=== PATIENT | male | born 1935 | race Caucasian/White ===

== ENCOUNTER → 2021-03-18 14:00 | Outpatient (CLI) | payer MEDICARE, SELFPAY ==
[2021-03-18 14:41] LABS: COVID19 -Nasal RAPID Negative (Negative)
== END ==
PROVIDERS: Visit Provider Physician Assistant
DX: Z01.812 Encounter for preprocedural laboratory examination (principal); Z20.822 Contact with and (suspected) exposure to COVID-19
CPT/HCPCS: 87635; C9803

== ENCOUNTER → 2021-03-20 07:46 | Outpatient (CLI) | payer MEDICARE, SELFPAY ==
--- NOTE | 2021-03-20 | DI.NM.S_ITS ---
PROCEDURE: NM JEANA PERF SPECT R&S PHARM Rest and pharmacological stress myocardial perfusion SPECT with gated imaging and ejection fraction RADIOPHARMACEUTICAL: 9.8 mCi Tc-99m tetrafosmin IV at rest and 26.3 mCi Tc-99m tetrafosmin IV at peak effect of pharmacological stress. [id number] was performed. INDICATIONS: Unspecified atrial fibrillation TECHNIQUE: Radiopharmaceutical was injected at peak stress test, and also at rest. SPECT images were obtained. SPECT myocardial perfusion images were displayed in short axis, horizontal long axis, and vertical long axis views. Gated images were reviewed using [employer] software. COMPARISON: None. CARDIAC STRESS: A pharmacologic stress test was performed under the supervision of an attending staff, using an infusion of lexiscan 0.4mg IV X1. Hemodynamic data: There is normal blood pressure and heart rate response to pharmacologic stress. Symptoms: The patient denied anginal chest pain. Aminophylline: none EKG: Resting ECG shows atrial fibrillation with incomplete LBBB and associated ST changes. No diagnostic changes of ischemia with lexiscan; occasional PVCs. FINDINGS: Raw data: There is good myocardial uptake of radiotracer. No significant motion artifacts. Prnb-lc-ophac ratio is 0.33 (normal is less than 0.38 for tetrafosmin tracer). Left ventricle function: Gated images demonstrate normal left ventricular wall thickening. No segmental wall motion abnormalities. No transient ischemic dilation; TID is 1.04 (normal less than 1.3). Left ventricle resting end diastolic volume is 197mL. Left ventricle stress ejection fraction is 64%; normal range is above 45%. Myocardial perfusion: There is moderately intense fixed inferior wall defect that improves significantly with prone imaging, suggesting diaphragmatic attenuation. No infarction and no ischemia. SSS 0. IMPRESSION: Low risk, normal pharmaceutical nuclear stress test. 1) No perfusion evidence of ischemia or infarction. There is moderately intense fixed inferior wall defect that improves significantly with prone imaging, suggesting diaphragmatic attenuation. 2) Normal left ventricular size, wall motion, and systolic function (EF post stress 64%). 3) ECG non-diagnostic due to baseline incomplete LBBB and associated ST changes. 4) No angina during the study. 5) No prior nuclear stress test available for comparison. Dictated by: Kiran Greenberg MD on 03/20/2021 at 13:00 Approved by: Kiran Greenberg MD on 03/20/2021 at 13:03
== END ==
PROVIDERS: PCP Family Medicine; Referring Provider Internal Medicine Cardiovascular Disease; Visit Provider Internal Medicine Cardiovascular Disease
DX: I48.20 Chronic atrial fibrillation, unspecified (principal); I25.10 Atherosclerotic heart disease of native coronary artery without angina pectoris
CPT/HCPCS: 78452; 93017; A9502; J2785

== ENCOUNTER → 2022-01-19 15:35 | Outpatient (CLI) | payer MEDICARE, SELFPAY ==
--- NOTE | 2022-01-19 | DI.MRI.S_ITS ---
PROCEDURE: MR LUMBAR SPINE WO CON INDICATIONS: Low back pain, unspecified TECHNIQUE: Noncontrast sagittal T1 spin echo and T2 fast echo, sagittal STIR, and T2 fast spin echo through the lumbar spine. Additional oblique axial T2 weighted images were obtained through the lower lumbar spine. In cases with scoliosis, additional coronal T2 fast spin echo may be performed. COMPARISON: [facility], CR, XR LUMBAR SPINE WITH OBLIQUES PLUS FLEXION EXTENSION, 01/06/2022, 15:09. FINDINGS: Image quality: Excellent. Alignment and Curvature: There is minimal retrolisthesis seen at L1-L2, with mild retrolisthesis at L2-L3. Minimal retrolisthesis is seen at L3-L4. Bone Marrow: Marrow is of normal overall signal. Scattered foci are seen, which are hyperintense on T1-weighted and T2-weighted imaging, which are most consistent with benign vertebral body hemangiomas. No acute vertebral body compression fractures. Spinal Cord: Conus medullaris terminates at the L1 level. Visualized cord demonstrates normal signal and size. Paraspinous Soft Tissues: There is partial visualization of an apparent mass exophytic at the inferior pole of the left kidney that measures up to 5.3 cm. T12-L1: No significant abnormality is seen. L1-L2: The disc height is well-preserved. Loss of disc signal is seen at this level. Mild disc bulge is seen, with a mild central/right disc protrusion. No significant neural foraminal narrowing is seen. Mild central canal narrowing is seen. L2-L3: There is at least moderate loss of disc height and disc signal seen. Moderate generalized disc bulge is seen. There is a superimposed central/right disc extrusion, with mild inferior migration disc material, as on series 2, image 6 and on series 5 image 17. Mild facet joint hypertrophy is seen. Bridging endplate osteophytes are seen. There is at least moderate right-sided and moderate left-sided neural foraminal narrowing. Moderate central canal narrowing is seen. L3-L4: Moderate loss of disc height is seen. Loss of disc signal is seen. Moderate generalized disc bulge is seen. There is a central/right disc extrusion, with inferior migration of the disc material. There is at least moderate right-sided and pzrn-ls-[id number] left-sided facet hypertrophy. Moderate to severe bilateral neural foraminal narrowing can be seen, right worse than left. There is a degree of compression seen upon the exiting nerve roots. Moderate central canal narrowing is seen. L4-L5: Mild loss of disc height is seen. Loss of disc signal is seen. Moderate generalized disc bulge is seen. There is a superimposed central disc protrusion. Moderate facet joint hypertrophy is seen. Associated hypertrophy of the ligamentum flavum can be seen. There is moderate to severe bilateral neural foraminal narrowing seen, with an associated a degree of compression seen upon the exiting nerve roots. At least moderate central canal narrowing is seen at this level. L5-S1: The disc height is well-preserved. Loss of disc signal is seen at this level. Mild to moderate disc bulge is seen, with a mild central disc protrusion. At least moderate facet hypertrophy is seen at this level. There is [id number] right-sided and at least moderate left-sided neural foraminal narrowing. Moderate central canal narrowing is seen. IMPRESSION: 5.3 cm exophytic right kidney mass seen inferiorly. Please correlate with known patient history and any prior outside imaging. Please consider a dedicated renal mass protocol CT for further evaluation. Multiple levels lumbar spine degenerative change are seen, which are overall worst at the L4-L5 level. Central/right disc extrusions can be seen at L2-L3 and L3-L4. Dictated by: Obey Patricia M.D. on 01/19/2022 at 16:36 Approved by: Obey Patricia M.D. on 01/19/2022 at 16:41
== END ==
PROVIDERS: PCP Family Medicine; Referring Provider Physical Medicine & Rehabilitation Pain Medicine; Visit Provider Physical Medicine & Rehabilitation Pain Medicine
DX: M47.816 Spondylosis without myelopathy or radiculopathy, lumbar region (principal); M47.817 Spondylosis without myelopathy or radiculopathy, lumbosacral region; M51.26 Other intervertebral disc displacement, lumbar region; N28.9 Disorder of kidney and ureter, unspecified
CPT/HCPCS: 72148

== ENCOUNTER 2022-01-26 08:24 | Observation (INO) | payer MEDICARE, SELFPAY ==
[2022-01-26] VITALS (10 sets, daily range): BP systolic 149–173; BP diastolic 59–77; PULSE 66–81; RESP 18–30; TEMP 36.6–37.6; O2SAT 94–96; BMI 25.2
--- NOTE | 2022-01-26 08:51 | ED.GENADULT ---
HPI - General Adult General Chief complaint: Weakness Stated complaint: Shallow breathing, weakness Time Seen by Provider: 01/26/22 08:29 Source: patient Mode of arrival: Ambulatory History of Present Illness HPI narrative: 86-year-old gentleman with a history of hypertension, BPH, atrial fibrillation anticoagulated on warfarin presents with severe weakness to the point he is unable to even stand. This was 1st noted last night. His notes that he actually rolled out of bed twice yesterday and he is never done that. This morning he was able to stand at the bedside and take 2-3 steps before he became so weak he needed to sit down. He does not describe fevers, cough, chills, abdominal pain, headaches, vomiting, diarrhea, lower extremity edema, rashes. He does have intermittent back pain and had a recent MRI that incidentally noted a renal mass. He notes that he does not believe in COVID vaccinations and has not yet had COVID. He recently had a stress echo up at [facility] but does not yet have results. He is not describing orthopnea. With the weakness he is not describing palpitations, Luciano arrhythmias, chest pain of any sort. Related Data Home Medications Medication Instructions Recorded Confirmed amlodipine 10 mg tablet mg 01/26/22 atorvastatin 80 mg tablet mg 01/26/22 benazepril 40 mg tablet mg 01/26/22 furosemide 20 mg tablet mg 01/26/22 tamsulosin 0.4 mg capsule mg PO 01/26/22 warfarin 5 mg tablet mg 01/26/22 Allergies Allergy/AdvReac Type Severity Reaction Status Date / Time No Known Drug Allergies Allergy Verified 01/26/22 15:27 Review of Systems Review of Systems Narrative: Remainder of complete review of systems is otherwise unremarkable except for that included in the HPI. Patient History Medical History BPH (benign prostatic hyperplasia) Chronic atrial fibrillation Coronary disease Gout Heart murmur Hypertension Social History household members: spouse Smoking Status: Never smoker Smoking Status: Never smoker Substance Use Type: does not use Exam Initial Vital Signs Initial Vital Signs: Vital Signs Pulse Rate 72 01/26/22 08:33 Respiratory Rate 29 H 01/26/22 08:33 Pulse Oximetry 94 01/26/22 08:33 General: Healthy appearing, in no acute distress. Globally weak and minimally participating in history and physical HEENT: Moist mucous membranes, normal sclera with reactive pupils, Neck: No JVD, supple, head is atraumatic Respiratory: Lungs are clear to auscultation, no wheezing no rales no rhonchi. Full and symmetrical air movement Cardiac: Irregular rhythm, 4/6 systolic ejection murmur Abdomen: Soft, nontender, good bowel tones, no flank pain Skin: Warm and dry, no rashes Neurologic: Globally weak but Grossly neurologically intact with no obvious asymmetries or abnormalities Extremities: No trauma, well perfused, no significant lower extremity edema Psych: Cooperative, flat affect and minimal interaction Course Orders Ordered: ED Orders 01/26/22 08:55 Comprehensive Metabolic Panel Stat Magnesium Stat NT-proBNP (BNP-Adult 18+) Stat Procalcitonin Stat Troponin I Stat 01/26/22 09:17 CT head/brain wo con Stat XR chest 1V Stat 01/26/22 09:45 COVID19 -Nasal RAPID/Pre-Proc Stat Urinalysis and Microscopic Stat Urine Culture Stat 01/26/22 11:05 CT abdomen wwo pelvis w Stat Bisacodyl (Bisacodyl 10 Mg Supp) 10 mg KS DAILY PRN PRN Reason: Constipation Enoxaparin Sodium (Enoxaparin 40 Mg/0.4 Ml Syringe) 40 mg SUBCUT DAILY PINEDA Ceftriaxone Sodium 1,000 mg/ (Sodium Chloride) 100 mls @ 200 mls/hr IV DAILY PINEDA Naloxone HCl (Naloxone 0.4 Mg/Ml Vial) 0.2 mg IV Q2MIN PRN PRN Reason: Opiate Reversal Ondansetron HCl (Ondansetron 4 Mg/2 Ml Inj) 4 mg IV Q8HR PRN PRN Reason: Nausea And Vomiting Discontinued Medications Furosemide (Furosemide 40 Mg/4 Ml Vial) 40 mg IV NOW ONE Stop: 01/26/22 10:15 Last Admin: 01/26/22 11:13 Dose: 40 mg Documented by: EDDIE Ceftriaxone Sodium 2,000 mg/ (Sodium Chloride) 100 mls @ 200 mls/hr IV NOW ONE Stop: 01/26/22 10:15 Last Infusion: 01/26/22 11:43 Dose: 0 mls/hr Documented by: Admin: 01/26/22 11:13 Dose: 200 mls/hr Documented by: EDDIE Potassium Chloride (Potassium Chloride 20 Meq Tab) 40 meq PO NOW ONE Stop: 01/26/22 14:56 Last Admin: 01/26/22 15:30 Dose: 40 meq Documented by: EDDIE Vital Signs Vital signs: Vital Signs - 8 hr 01/26/22 08:33 01/26/22 08:35 01/26/22 09:01 Temperature 99.0 F Pulse Rate 72 67 77 Respiratory Rate 29 H 18 30 H Blood Pressure 169/77 H 149/72 H Pulse Oximetry 94 95 95 Medical Decision Making Medical Records Medical records narrative: 86-year-old gentleman who presents with weakness as his only complaint. Apparently was unable to stand at all last night. He has not been vaccinated against COVID. He does have some back pain and has had recent MRI currently is completely pain-free. On that MRI an incidentally noted renal mass was appreciated he is having no abdominal pain. No fevers or dysuria. Broad workup is initiated including CT scan of the head as he did fall out of bed twice last night and he is anticoagulated. COVID screening. CT scan of the abdomen and general blood work. He is not febrile or otherwise complaining of infectious disease type symptoms. Lab Data Result diagrams: 01/26/22 08:35 01/26/22 08:55 Labs: Lab Results 01/26/22 01/26/22 01/26/22 Range/Units 08:35 08:35 08:55 WBC 11.6 H (4.5-11.0) X10^3/uL RBC 4.20 L (4.5-5.9) X10^6/uL Hgb 13.2 L (13.5-17.5) g/dL Hct 37.7 L (41-53) % MCV 89.9 (80-100) fL MCH 31.3 (26-34) PG MCHC 34.9 (30-36) % RDW 13.7 (11.6-14.8) % Plt Count 194 (150-400) X10^3/uL Neut % (Auto) 82.7 H (50-75) % Lymph % (Auto) 5.3 L (25-40) % Petroleum % (Auto) 11.4 (3-14) % Eos % (Auto) 0.3 L (2-4) % Baso % (Auto) 0.3 (0-2) % Neut # (Auto) 9600 H (9813-9960) /uL Lymph # (Auto) 600 L (0101-2864) /uL Petroleum # (Auto) 1300 H (0-900) /uL Eos # (Auto) 0 (0-450) /uL Baso # (Auto) 0 (0-100) /uL PT 32.7 H (10.1-12.7) SECONDS INR 2.9 H (0.9-1.3) Sodium 139 (137-145) mmol/L Potassium 3.4 (3.4-5.1) mmol/L Chloride 106 (98-107) mmol/L Carbon Dioxide 27 (22-32) mmol/L BUN 16 (9-20) mg/dL Creatinine 0.85 (0.66-1.25) mg/dL Estimated GFR > 60 (>60) mL/min BUN/Creatinine Ratio 18.8 (6-22) Glucose 213 H (80-110) mg/dL Calcium 8.5 (8.4-10.2) mg/dL Magnesium 1.7 (1.6-2.3) mg/dL Total Bilirubin 1.2 (0.2-1.3) mg/dL AST 36 (17-59) IU/L ALT 24 (<50) IU/L Alkaline Phosphatase 99 (38-126) U/L Troponin I 0.025 (0.01-0.034) ng/mL NT-Pro-B Natriuret Pep 2510 H (<450) pg/mL Total Protein 7.1 (6.3-8.2) g/dL Albumin 3.9 (3.5-5.0) g/dL Globulin 3.2 (1.7-4.1) g/dL Albumin/Globulin Ratio 1.2 (1.0-2.8) Procalcitonin 0.09 (<0.5) ng/mL Urine Color Urine Appearance Urine pH (4.5-8.0) Ur Specific [place] (1.000-1.035) Urine Protein (Negative) Urine Glucose (UA) (Negative) g/dL Urine Ketones (NEGATIVE) Urine Occult Blood (Negative) Urine Nitrate (Negative) Urine Bilirubin (NEGATIVE) Urine Urobilinogen (0.2) E.U./dL Ur Leukocyte Esterase (NEGATIVE) Urine RBC (0-5/HPF) Urine WBC (0-5/HPF) Amorphous Sediment Urine Bacteria (None) Ur Culture Indicated? SARS-CoV-2 (PCR) (Negative) 01/26/22 01/26/22 Range/Units 09:45 09:45 WBC (4.5-11.0) X10^3/uL RBC (4.5-5.9) X10^6/uL Hgb (13.5-17.5) g/dL Hct (41-53) % MCV (80-100) fL MCH (26-34) PG MCHC (30-36) % RDW (11.6-14.8) % Plt Count (150-400) X10^3/uL Neut % (Auto) (50-75) % Lymph % (Auto) (25-40) % Petroleum % (Auto) (3-14) % Eos % (Auto) (2-4) % Baso % (Auto) (0-2) % Neut # (Auto) (7472-8323) /uL Lymph # (Auto) (4661-3278) /uL Petroleum # (Auto) (0-900) /uL Eos # (Auto) (0-450) /uL Baso # (Auto) (0-100) /uL PT (10.1-12.7) SECONDS INR (0.9-1.3) Sodium (137-145) mmol/L Potassium (3.4-5.1) mmol/L Chloride (98-107) mmol/L Carbon Dioxide (22-32) mmol/L BUN (9-20) mg/dL Creatinine (0.66-1.25) mg/dL Estimated GFR (>60) mL/min BUN/Creatinine Ratio (6-22) Glucose (80-110) mg/dL Calcium (8.4-10.2) mg/dL Magnesium (1.6-2.3) mg/dL Total Bilirubin (0.2-1.3) mg/dL AST (17-59) IU/L ALT (<50) IU/L Alkaline Phosphatase (38-126) U/L Troponin I (0.01-0.034) ng/mL NT-Pro-B Natriuret Pep (<450) pg/mL Total Protein (6.3-8.2) g/dL Albumin (3.5-5.0) g/dL Globulin (1.7-4.1) g/dL Albumin/Globulin Ratio (1.0-2.8) Procalcitonin (<0.5) ng/mL Urine Color Yellow Urine Appearance Clear Urine pH 5.5 (4.5-8.0) Ur Specific [place] 1.025 (1.000-1.035) Urine Protein 2+ H (Negative) Urine Glucose (UA) Negative (Negative) g/dL Urine Ketones Negative (NEGATIVE) Urine Occult Blood 2+ H (Negative) Urine Nitrate Negative (Negative) Urine Bilirubin Negative (NEGATIVE) Urine Urobilinogen 0.2 (0.2) E.U./dL Ur Leukocyte Esterase 1+ H (NEGATIVE) Urine RBC 5-10/hpf H (0-5/HPF) Urine WBC 5-10/hpf H (0-5/HPF) Amorphous Sediment 1+ Urine Bacteria Few (2-10) H (None) Ur Culture Indicated? Specimen cultured SARS-CoV-2 (PCR) Negative (Negative) Imaging Data Chest x-ray: Radiologist's Impression: FINDINGS:? ? Surgical changes and devices:? None.? ? Lungs and pleura:? There is diffuse interstitial prominence.? No focal airspace opacities..? No pleural effusions or pneumothorax.? ? Mediastinum:? Mediastinal contours appear normal.? Heart size is enlarged. ? Bones and chest wall:? No suspicious bony lesions.? Overlying soft tissues appear unremarkable.? ? IMPRESSION:? Cardiomegaly.? Interstitial prominence suggesting fluid overload. ? ? Dictated by: Judie Weston M.D. on 01/26/2022 at 9:34? ?? CT scan - abdomen/pelvis: Radiologist's Impression: FINDINGS:? Image quality:? Excellent.? ? ABDOMEN:? Lung bases:? Lung bases are clear. Heart size is normal.? ? Solid organs:? Liver is normal in size and enhancement.? Gallbladder is unremarkable.? Biliary system is non-dilated.? Pancreas enhances normally.? Spleen is normal in size and enhancement.? No adrenal nodules.? ? The right kidney demonstrates normal size and enhancement.? No suspicious mass lesions.? There is a low-density cyst within the lower pole of the right kidney.? There is a heterogeneously enhancing 1.2 x 4.9 x 5.6 cm left upper pole renal mass which corresponds with the finding on the MRI dated January 19, 2022. No hydronephrosis.? ? Bowel and peritoneum:? Stomach, small and large bowel loops are normal in caliber and wall thickness.? No free fluid or air.? ? Nodes and vessels:? No retroperitoneal or mesenteric adenopathy by size criteria.? Aorta and inferior vena are normal in caliber.? There are scattered atheromatous calcifications throughout the aorta and iliac arteries bilaterally. ? Miscellaneous:? There is a fat containing umbilical hernia. ? ? PELVIS:? Genitourinary:? Bladder wall thickness is normal.? Prostate is markedly enlarged. ? Miscellaneous:? No inguinal adenopathy.? There is a small right inguinal hernia which contains a loop of nondilated small bowel and mesenteric fat. ? Bones:? There is a sclerotic 1.8 x 1.4 cm right iliac lesion (series 5/image 61).? A sclerotic focus is present within the right L5 pedicle.? No other suspicious bony lesions.? No vertebral body compression fractures.? ? IMPRESSION:? ? 1. Enhancing left renal mass suspicious for renal cell carcinoma.? If clinically indicated, this lesion is likely amenable to CT-guided percutaneous biopsy. ? 2. Solitary right sclerotic iliac lesion and right L5 pedicle lesion which may represent bone islands; however bony metastasis cannot be excluded.? No prior studies are available for comparison to determine acuity of these findings.. ? 3. Small right inguinal hernia which contains a nondilated loop of small bowel and mesenteric fat.? No strangulation or ischemia. ? ? Dictated by: Judie Weston M.D. on 01/26/2022 at 11:18? ?? [facility] Narrative Medical decision making narrative: 86-year-old gentleman presents with progressive weakness. Looks like he may developing mild urinary tract infection. Will treat this with ceftriaxone. No signs of sepsis with no abnormal vitals, fever and low calcitonin. It does look like he has mild congestive heart failure notes unclear if this is a chronic diagnosis for him or new. His notes that he had similar symptoms about a year ago with what sounded like a small bump in his troponin yet they did not get complete answer. Will see if we can get the stress echo testing that had been done last week up [facility]. Suspect the [facility]Fit is ongoing with acute exacerbation. COVID is negative today. With his overall weakness he will need hospital admission and will talk to the hospitalist service. Discharge Plan Departure Patient Disposition: Admitted as Observation Clinical Impression: CHF (congestive heart failure), Acute UTI, Weakness, Left renal mass Admit Date/Time: 01/26/22 10:42 Admit Provider: Cherie Gomez
--- NOTE | 2022-01-26 09:17 | DI.CT.S_ITS ---
PROCEDURE: CT HEAD/BRAIN WO CON INDICATIONS: weakness, fall x 2 last night TECHNIQUE: Noncontrast 4.5 mm thick angled axial sections acquired from the foramen magnum to the vertex, with coronal and sagittal reformats. For radiation dose reduction, the following was used: automated exposure control, adjustment of mA and/or kV according to patient size. COMPARISON: None. FINDINGS: Image quality: Excellent. CSF spaces: Basal cisterns are patent. No extra-axial fluid collections. The ventricles are symmetric in size and shape. Brain: No intracranial bleeds or masses. There is cerebral volume loss for age, with resultant ventricular and sulcal prominence. There are periventricular and deep white matter chronic small vessel ischemic changes. There is intracranial internal carotid artery atherosclerosis. Skull and face: Calvarium and visualized facial bones appear intact, without suspicious lesions. Sinuses: Visualized sinuses and mastoids are clear. IMPRESSION: 1. Volume loss and small vessel ischemic disease. 2. No acute intracranial abnormality. Dictated by: Rissa Pagan M.D. on 01/26/2022 at 9:55 Approved by: Rissa Pagan M.D. on 01/26/2022 at 9:56
--- NOTE | 2022-01-26 09:17 | DI.RAD.S_ITS ---
PROCEDURE: XR CHEST 1V INDICATIONS: weakness TECHNIQUE: One view of the chest was acquired. COMPARISON: None. FINDINGS: Surgical changes and devices: None. Lungs and pleura: There is diffuse interstitial prominence. No focal airspace opacities.. No pleural effusions or pneumothorax. Mediastinum: Mediastinal contours appear normal. Heart size is enlarged. Bones and chest wall: No suspicious bony lesions. Overlying soft tissues appear unremarkable. IMPRESSION: Cardiomegaly. Interstitial prominence suggesting fluid overload. Dictated by: Judie Weston M.D. on 01/26/2022 at 9:34 Approved by: Judie Weston M.D. on 01/26/2022 at 9:35
[2022-01-26 09:33] LABS: Alanine Aminotransferase 24 IU/L (<50); Albumin 3.9 g/dL (3.5-5.0); Albumin Globulin Ratio 1.2 (1.0-2.8); Alkaline Phosphatase 99 U/L (38-126); Aspartate Aminotransferase 36 IU/L (17-59); BUN Creatinine Ratio 18.8 (6-22); Bilirubin Total 1.2 mg/dL (0.2-1.3); Blood Urea Nitrogen 16 mg/dL (9-20); Calcium 8.5 mg/dL (8.4-10.2); Carbon Dioxide 27 mmol/L (22-32); Chloride 106 mmol/L (98-107); Estimated Glomerular Filt Rate > 60 mL/min (>60); Globulin 3.2 g/dL (1.7-4.1); Glucose 213 mg/dL (80-110); HEMOLYSIS 18 (0-50); Magnesium 1.7 mg/dL (1.6-2.3); Potassium 3.4 mmol/L (3.4-5.1); Sodium 139 mmol/L (137-145); Total Protein 7.1 g/dL (6.3-8.2)
[2022-01-26 09:46] LABS: NT-proBNP (BNP-Adult 18+) 2510 pg/mL (<450); Troponin I 0.025 ng/mL (0.01-0.034)
[2022-01-26 09:50] LABS: Procalcitonin 0.09 ng/mL (<0.5)
[2022-01-26 09:52] LABS: Appearance Urine UA CLEAR; Bilirubin Urine UA NEGATIVE (NEGATIVE); Color Urine UA YELLOW; Glucose Urine UA NEGATIVE (Negative); Ketones Urine UA NEGATIVE (NEGATIVE); Leukocyte Esterase Urine UA 1+ (NEGATIVE); Nitrite Urine UA NEGATIVE (Negative); Occult Blood Urine UA 2+ (Negative); Protein Urine UA 2+ (Negative); Specific Gravity Urine UA 1.025 (1.000-1.035); Urobilinogen Urine UA 0.2 E.U./dL (0.2); pH Urine UA 5.5 (4.5-8.0)
[2022-01-26 10:04] LABS: Amorphous Sediment Urine 1+; Bacteria Urine Few (2-10); Culture Indicated Urine Specimen Cultured; RBC Urine 5-10/HPF (0-5/HPF); WBC Urine 5-10/HPF (0-5/HPF)
[2022-01-26 10:09] LABS: COVID19 -Nasal RAPID Negative (Negative)
[2022-01-26 10:16] LABS: Add Manual Diff / Slide Review NO; Basophils Absolute Auto 0 /uL (0-100); Basophils Percent Auto 0.3 % (0-2); Eosinophils Absolute Auto 0 /uL (0-450); Eosinophils Percent Auto 0.3 % (2-4); Hematocrit 37.7 % (41-53); Hemoglobin 13.2 g/dL (13.5-17.5); Lymphocytes Absolute Auto 600 /uL (1100-4500); Lymphocytes Percent Auto 5.3 % (25-40); Mean Corpuscular HGB Conc 34.9 % (30-36); Mean Corpuscular Hemoglobin 31.3 PG (26-34); Mean Corpuscular Volume 89.9 fL (80-100); Monocytes Absolute Auto 1300 /uL (0-900); Monocytes Percent Auto 11.4 % (3-14); Neutrophils Absolute Auto 9600 /uL (1500-7000); Neutrophils Percent Auto 82.7 % (50-75); Platelet Count 194 X10^3/uL (150-400); Red Cell Distribution Width 13.7 % (11.6-14.8); White Blood Cell Count 11.6 X10^3/uL (4.5-11.0)
[2022-01-26 10:24] LABS: INR 2.9 (0.9-1.3); Prothrombin Time 32.7 SECONDS (10.1-12.7)
--- NOTE | 2022-01-26 11:05 | DI.CT.S_ITS ---
PROCEDURE: CT ABDOMEN WWO PELVIS W INDICATIONS: incidental renal mass on spine MRI, weakness TECHNIQUE: After the administration of oral contrast, 5 mm thick sections acquired from the diaphragms to the iliac crests. After the administration of intravenous contrast, 5 mm thick sections acquired from the diaphragms to the symphysis. 5 mm thick coronal and sagittal reformats were acquired. For radiation dose reduction, the following was used: automated exposure control, adjustment of mA and/or kV according to patient size. COMPARISON: [facility], MR, MR LUMBAR SPINE WO CON, 01/19/2022, 15:51. FINDINGS: Image quality: Excellent. ABDOMEN: Lung bases: Lung bases are clear. Heart size is normal. Solid organs: Liver is normal in size and enhancement. Gallbladder is unremarkable. Biliary system is non-dilated. Pancreas enhances normally. Spleen is normal in size and enhancement. No adrenal nodules. The right kidney demonstrates normal size and enhancement. No suspicious mass lesions. There is a low-density cyst within the lower pole of the right kidney. There is a heterogeneously enhancing 1.2 x 4.9 x 5.6 cm left upper pole renal mass which corresponds with the finding on the MRI dated January 19, 2022. No hydronephrosis. Bowel and peritoneum: Stomach, small and large bowel loops are normal in caliber and wall thickness. No free fluid or air. Nodes and vessels: No retroperitoneal or mesenteric adenopathy by size criteria. Aorta and inferior vena are normal in caliber. There are scattered atheromatous calcifications throughout the aorta and iliac arteries bilaterally. Miscellaneous: There is a fat containing umbilical hernia. PELVIS: Genitourinary: Bladder wall thickness is normal. Prostate is markedly enlarged. Miscellaneous: No inguinal adenopathy. There is a small right inguinal hernia which contains a loop of nondilated small bowel and mesenteric fat. Bones: There is a sclerotic 1.8 x 1.4 cm right iliac lesion (series 5/image 61). A sclerotic focus is present within the right L5 pedicle. No other suspicious bony lesions. No vertebral body compression fractures. IMPRESSION: 1. Enhancing left renal mass suspicious for renal cell carcinoma. If clinically indicated, this lesion is likely amenable to CT-guided percutaneous biopsy. 2. Solitary right sclerotic iliac lesion and right L5 pedicle lesion which may represent bone islands; however bony metastasis cannot be excluded. No prior studies are available for comparison to determine acuity of these findings.. 3. Small right inguinal hernia which contains a nondilated loop of small bowel and mesenteric fat. No strangulation or ischemia. Dictated by: Judie Westno M.D. on 01/26/2022 at 11:18 Approved by: Judie Weston M.D. on 01/26/2022 at 11:26
[2022-01-26] MEDS: cefTRIAXone 2,000 MG in SODIUM CHLORIDE 0.9% 100 ML 200 MG IV (11:13)
[2022-01-26] MEDS: FUROSEMIDE 40 MG/4 ML VIAL IV (11:13)
--- NOTE | 2022-01-26 14:40 | PM.HP.1 ---
History of Present Illness History of Present Illness Date Patient Seen: 01/26/22 Chief complaint: shallow breathing, weakness Narrative: THIS IS AN 86-YEAR-OLD MALE WHO HAS A HISTORY OF BPH, HYPERTENSION AND HYPERLIPIDEMIA HE WAS BROUGHT TO THE HOSPITAL DUE TO INCREASING WEAKNESS. PATIENT IS ALERT, AWAKE, ORIENTED X3. HE REPORTED THAT HE HAS BEEN FEELING WEAKER AND WEAKER OVER LAST FEW DAYS. REPORTED THAT HE LIVES AT HOME WITH HIS . BUT FEELS LIKE HE MIGHT NEED SNF IN THE ER, IT WAS NOTED TO HAVE A SLIGHTLY ELEVATED WHITE BLOOD CELL COUNT. URINE WAS WITH +1 LEUKO ESTERASE COAGULOPATHY RELATED TO WARFARIN ALSO APPRECIATED. CT OF THE HEAD SHOWING EVIDENCE OF VOLUME LOSS WITHOUT ACUTE PROCESS CT ABDOMEN REPORTED AND LEFT RENAL MASS WITH POSSIBLE METASTASIS TO THE LUMBAR SPINE. A RIGHT INGUINAL HERNIA ALSO REPORTED Patient History Medical History BPH (benign prostatic hyperplasia) Chronic atrial fibrillation Coronary disease Gout Heart murmur Hypertension Family & Social History Social History: household members spouse Prior Living Arrangements House Safety & Behavioral: Feels Safe in Current Yes Environment Tobacco & Substance use: Smoking Status Never smoker alcohol intake frequency holiday/special occasion Substance Use Type does not use Meds Home Medications and Allergies Home Medications Medication Instructions Recorded Confirmed Type amlodipine 10 mg tablet mg 01/26/22 History atorvastatin 80 mg tablet mg 01/26/22 History benazepril 40 mg tablet mg 01/26/22 History furosemide 20 mg tablet mg 01/26/22 History tamsulosin 0.4 mg capsule mg PO 01/26/22 History warfarin 5 mg tablet mg 01/26/22 History Allergies Allergy/AdvReac Type Severity Reaction Status Date / Time No Known Drug Allergies Allergy Verified 01/26/22 15:27 Review of Systems Review of Systems Narrative: NEGATIVE UNLESS NOTED ABOVE Exam Vital Signs (past 8 hours): - 01/26/22 08:33 01/26/22 08:35 01/26/22 09:01 Temperature 99.0 F Pulse Rate 72 67 77 Respiratory Rate 29 H 18 30 H Blood Pressure 169/77 H 149/72 H Pulse Oximetry 94 95 95 01/26/22 11:05 01/26/22 14:00 Temperature 98.6 F 99.7 F H Pulse Rate 81 67 Respiratory Rate 18 18 Blood Pressure 173/77 H 151/59 H Pulse Oximetry 96 94 Oxygen Delivery Method Room Air Oxygen Flow Rate 0 Narrative Exam Narrative: NO ACUTE DISTRESS. PATIENT IS ALERT ORIENTED X3. VITAL SIGNS STABLE HEAD ATRAUMATIC NORMOCEPHALIC NECK : SUPPLE WITHOUT ADENOPATHY NO CAROTID BRUITS EYE: EOMI, PERRLA, NORMAL CONJUNCTIVA; NO JAUNDICE CHEST: REGULAR RATE. NO RUBS. PMI IS NON DISPLACED. NO MURMURS; NORMAL S1-S2 PULMONARY: DECREASED BS OVER THE BASES. MILD BIBASILAR CRACKLES NOTED; NO INCREASED DULLNESS TO PERCUSSION ABDOMEN: SOFT. NONTENDER. NONDISTENDED. BOWEL SOUNDS ARE PRESENT IN ALL 4 QUADRANTS. NO MASS. EXTREMITIES: NO EDEMA.. NO CYANOSIS CLUBBING NOTED. NEURO: CRANIAL NERVES 2-12 GROSSLY INTACT. NO FOCAL NEUROLOGICAL DEFICIT NOTED. MSK: NORMAL RANGE OF MOTION FOR AGE. NO JOINT EFFUSION. SKIN: NORMAL FOR ETHNICITY; NO ECCHYMOSIS. NO LESION. GOOD TURGOR.; NO RASHES : NORMAL EXTERNAL GENITALIA. PSYCH : APPROPRIATE MOOD AND AFFECT. ALERT AWAKE ORIENTED X3 Objective Labs Result Diagrams: 01/27/22 04:44 01/27/22 04:44 Labs: Laboratory Results - last 24 hr 01/26/22 01/26/22 01/26/22 08:35 08:35 08:55 WBC 11.6 H RBC 4.20 L Hgb 13.2 L Hct 37.7 L MCV 89.9 MCH 31.3 MCHC 34.9 RDW 13.7 Plt Count 194 Neut % (Auto) 82.7 H Lymph % (Auto) 5.3 L Billings % (Auto) 11.4 Eos % (Auto) 0.3 L Baso % (Auto) 0.3 Neut # (Auto) 9600 H Lymph # (Auto) 600 L Billings # (Auto) 1300 H Eos # (Auto) 0 Baso # (Auto) 0 PT 32.7 H INR 2.9 H Sodium 139 Potassium 3.4 Chloride 106 Carbon Dioxide 27 BUN 16 Creatinine 0.85 Estimated GFR > 60 BUN/Creatinine Ratio 18.8 Glucose 213 H Calcium 8.5 Magnesium 1.7 Total Bilirubin 1.2 AST 36 ALT 24 Alkaline Phosphatase 99 Troponin I 0.025 NT-Pro-B Natriuret Pep 2510 H Total Protein 7.1 Albumin 3.9 Globulin 3.2 Albumin/Globulin Ratio 1.2 Procalcitonin 0.09 Urine Color Urine Appearance Urine pH Ur Specific Frederic Urine Protein Urine Glucose (UA) Urine Ketones Urine Occult Blood Urine Nitrate Urine Bilirubin Urine Urobilinogen Ur Leukocyte Esterase Urine RBC Urine WBC Amorphous Sediment Urine Bacteria Ur Culture Indicated? SARS-CoV-2 (PCR) 01/26/22 01/26/22 09:45 09:45 WBC RBC Hgb Hct MCV MCH MCHC RDW Plt Count Neut % (Auto) Lymph % (Auto) Billings % (Auto) Eos % (Auto) Baso % (Auto) Neut # (Auto) Lymph # (Auto) Billings # (Auto) Eos # (Auto) Baso # (Auto) PT INR Sodium Potassium Chloride Carbon Dioxide BUN Creatinine Estimated GFR BUN/Creatinine Ratio Glucose Calcium Magnesium Total Bilirubin AST ALT Alkaline Phosphatase Troponin I NT-Pro-B Natriuret Pep Total Protein Albumin Globulin Albumin/Globulin Ratio Procalcitonin Urine Color Yellow Urine Appearance Clear Urine pH 5.5 Ur Specific Frederic 1.025 Urine Protein 2+ H Urine Glucose (UA) Negative Urine Ketones Negative Urine Occult Blood 2+ H Urine Nitrate Negative Urine Bilirubin Negative Urine Urobilinogen 0.2 Ur Leukocyte Esterase 1+ H Urine RBC 5-10/hpf H Urine WBC 5-10/hpf H Amorphous Sediment 1+ Urine Bacteria Few (2-10) H Ur Culture Indicated? Specimen cultured SARS-CoV-2 (PCR) Negative Assessment & Plan Assessment & Plan narrative: ACUTE PYELONEPHRITIS; GRAM NEG RODS SUSPECTED LEUKOCYTOSIS SECONDARY TO ABOVE; ON ABX ESSENTIAL HYPERTENSION HYPOKALEMIA ; ? 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 WITH POSSIBLE METASTAS NO INPATIENT INTERVENTION INDICATED RIGHT INGUINAL HERNIA. AWARE. NO SIGNS OF INCARCERATION BPH PER HISTORY CHRONIC ATRIAL FIBRILLATION FOR HISTORY COUMADIN COAGULOPATHY. .INR 2.9 PLAN CONTINUE ROCEPHIN FOR NOW WHILE AWAITING FOR CULTURE TO RESOLVE WILL ADJUST ABX PER CLINICAL INDICATION DAILY CBC TO FOLLOW REPLACE POTASSIUM ORALLY FOLLOW LEVEL IN THE AM REFER PATIENT TO PT AND OT FOR EVALUATION AND TREATMENT INDICATED MAINTAIN FALL PRECAUTION AT ALL TIMES PATIENT TO USE ASSISTIVE DEVICES FOR ALL ADLS NURSING TO PROVIDE ASSISTANCE WITH ALL ADL WELL IN REGARD TO THE LEFT MASS SHE SUSPECTED TO BE RENAL CELL CARCINOMA ON CT WITH POSSIBLE METASTASIS NO ACUTE INTERVENTION INDICATED AT THIS TIME. MAY NEED TO SEE HEMATOLOGY OUTPATIENT IF SO DESIRED BY PATIENT/ FAMILY GI PROPHYLAXIS ON BOARD CONTINUE COUMADIN ADDITIONAL MANAGEMENT PER CLINICAL COURSE Time Spent With Patient Critical Care time: I spent a total of [] minutes of critical care time on this patient's care today; this time is exclusive of procedural time. Quality VTE Deep Vein Thrombosis/Pulmonary Embolism Present on Admission: No
[2022-01-26] MEDS: POTASSIUM CHLORIDE 20 MEQ TAB 40 MEQ PO (15:30)
[2022-01-27] VITALS (11 sets, daily range): BP systolic 143–163; BP diastolic 59–78; PULSE 62–75; RESP 16–17; TEMP 37.1–38.7; O2SAT 92–94
[2022-01-27 05:05] LABS: Add Manual Diff / Slide Review NO; Basophils Absolute Auto 100 /uL (0-100); Basophils Percent Auto 0.7 % (0-2); Eosinophils Absolute Auto 100 /uL (0-450); Eosinophils Percent Auto 0.6 % (2-4); Hematocrit 37.4 % (41-53); Hemoglobin 13.3 g/dL (13.5-17.5); Lymphocytes Absolute Auto 600 /uL (1100-4500); Lymphocytes Percent Auto 5.1 % (25-40); Mean Corpuscular HGB Conc 35.5 % (30-36); Mean Corpuscular Hemoglobin 31.7 PG (26-34); Mean Corpuscular Volume 89.2 fL (80-100); Monocytes Absolute Auto 1600 /uL (0-900); Monocytes Percent Auto 13.3 % (3-14); Neutrophils Absolute Auto 9700 /uL (1500-7000); Neutrophils Percent Auto 80.3 % (50-75); Platelet Count 168 X10^3/uL (150-400); Red Blood Cell Count 4.19 X10^6/uL (4.5-5.9); Red Cell Distribution Width 13.9 % (11.6-14.8); White Blood Cell Count 12.1 X10^3/uL (4.5-11.0)
[2022-01-27 05:11] LABS: INR 1.7 (0.9-1.3); Prothrombin Time 19.7 SECONDS (10.1-12.7)
[2022-01-27 05:46] LABS: Alanine Aminotransferase 22 IU/L (<50); Albumin 3.8 g/dL (3.5-5.0); Albumin Globulin Ratio 1.2 (1.0-2.8); Alkaline Phosphatase 90 U/L (38-126); Aspartate Aminotransferase 32 IU/L (17-59); BUN Creatinine Ratio 16.7 (6-22); Bilirubin Total 1.2 mg/dL (0.2-1.3); Blood Urea Nitrogen 14 mg/dL (9-20); Calcium 8.2 mg/dL (8.4-10.2); Carbon Dioxide 25 mmol/L (22-32); Chloride 104 mmol/L (98-107); Estimated Glomerular Filt Rate > 60 mL/min (>60); Globulin 3.2 g/dL (1.7-4.1); Glucose 176 mg/dL (80-110); HEMOLYSIS < 15 (0-50); Magnesium 1.8 mg/dL (1.6-2.3); Phosphorous 3.1 mg/dL (2.3-3.7); Potassium 3.3 mmol/L (3.4-5.1); Sodium 138 mmol/L (137-145)
[2022-01-27] MEDS: cefTRIAXone 1,000 MG in SODIUM CHLORIDE 0.9% 100 ML 200 MG IV (08:05)
[2022-01-27] MEDS: FAMOTIDINE 20 MG TABLET PO ×2 (08:05→21:27)
[2022-01-27] MEDS: ENOXAPARIN 40 MG/0.4 ML SYRINGE SUBCUT (08:05)
--- NOTE | 2022-01-27 09:51 | PC.NURSE ---
Pt sleeping presently. attentive at bedside.
--- NOTE | 2022-01-27 10:35 | PT.IIE ---
Current Diagnoses Acute pyelonephritis (01/27/22) Medical History (Last Reviewed 01/26/22 @ 09:25 by Mallika Taylor MD) BPH (benign prostatic hyperplasia) Chronic atrial fibrillation Coronary disease Gout Heart murmur Hypertension Physical Therapy Inpatient Evaluation/Re-Eval M1 PT/OT-IP Prior Functional Status Start: 01/27/22 13:14 Freq: NEEDED Status: Active Protocol: Document 01/27/22 10:35 AB (Rec: 01/27/22 13:46 AB [id number]) Medical Review Prior Functional Status Medical History Reviewed Yes Communication able to make needs known Mobility and Gait pt stated that he is independent with all mobilities and ambualtion without AD Social History Household Members spouse Living Arrangements House Number of Floors (Floors) Two Floors Number of Stairs To Enter/Railing? no steps to enter 15 steps L rail to get to bedroom level Home Environment High Toilet,Tub/Shower Home Equipment Straight Cane,Hand Held Shower M2 PT-IP Current Condition Start: 01/27/22 13:14 Freq: NEEDED Status: Active Protocol: Document 01/27/22 10:35 AB (Rec: 01/27/22 13:46 AB [id number]) Physical Therapy Current Condition Current Condition Evaluation Date 01/27/22 Treatment Diagnosis CHF; pylonephritis; difficulty in walking Onset Date 01/26/22 M3 PT-IP Subjective Start: 01/27/22 13:14 Freq: NEEDED Status: Active Protocol: Document 01/27/22 10:35 AB (Rec: 01/27/22 13:46 AB [id number]) Subjective Physical Therapy Visit Type Type Initial Evaluation Visit Start Time 10:35 Visit Stop Time 11:14 Total Visit Minutes 39 Number of NO BAKE MOLDER Visits 0 Physical Therapy Visit Comments Patient Comments pt is agreeable to do PT M4 PT-IP Mobility and Gait Start: 01/27/22 13:14 Freq: NEEDED Status: Active Protocol: Document 01/27/22 10:35 AB (Rec: 01/27/22 13:46 AB [id number]) PT-Bed Mobility Assessment Supine to Sit Supine to Sit Standby Assistance PT-Transfer Assessment Sit to and From Stand Sit to and from Stand Contact Guard Assistance,1 Person Assistance,Use of Upper Extremities Equipment Transfer Assistive Device None,Gait Belt,Straight Cane Orthotic/Prosthetic Devices or Brace: No Transfers Transfer Destination Chair Transfer Technique ambulated Transfer Ability Level of Assist Contact Guard Assistance, Minimal Assistance,1 Person Assistance,Use of Upper Extremities Comments Mobility Comments completed supine to sit SBA, sit to stand SBA to CGA and ambulated in room initially using FWW SBA and then without AD SBA. presents with stooped posture and lateral trunk lean to the L. pt cued to slow down. pt agreed to walk to the stairs and completed ~ 125 ft without AD CGA to min A and cues. presents with unsteady gait with slight LOB but with recovery. completed up/down steps using L rail CGA. pt ambulated back to his room CGA to min A. pt presented to be tired with increase stooped posture and more unsteady gait . pt sat back on the chair. educated pt and spouse regarding safety and use of AD . ambulated in room using SPC 20 ft min A with (+) LOB requiring min A for recovery. pt with more unsteady gait. pt sat back on the chair. positioned with call light and table placed within reach. inforemd spouse and pt regarding use of FWW at this time and agreed. Gait Assessment Gait Gait Assistance Required: Contact Guard Assist,Minimum Assistance,1 Person Assist Distance (Feet) 125 Able to Maintain Weight Bearing Status Yes During Gait Assistive Devices Assistive Device None,Gait Belt,Straight Cane Orthotic/Prosthetic Devices or Brace: No Gait Deviations General Gait Pattern Ataxic,Decreased Stride Length ,Decreased Feet Clearance, Flexed Trunk,Lateral Trunk Lean,Step-to Gait Factors Limiting Gait Function Factors Limiting Gait Function Decreased Activity Tolerance, Decreased Strength,Poor Balance,Poor Safety Awareness Stair Climbing Assessment Evaluation Level of Assist On Stairs Contact Guard Assistance Devices Stair Climbing Assistive Devices Left Railing Technique/Endurance Stair Climbing Direction Ascend and Descend Stair Climbing Technique Step to Step Number of Steps Climbed 3 Query Text: Stair Climbing Set # Repetitions (reps) 2 PT-Balance Assessment Sitting Balance and Reactions Static Sitting Balance Ability Good Dynamic Sitting Balance Ability Good Standing Balance and Reactions Static Standing Balance Ability Fair Dynamic Standing Balance Ability Fair Device Used without AD M5 PT-IP Objective Assessments Start: 01/27/22 13:14 Freq: NEEDED Status: Active Protocol: Document 01/27/22 10:35 AB (Rec: 01/27/22 13:46 AB [id number]) Orientation Orientation/Cognition Level of Alertness Alert Orientation Name,Place,Situation Language Function Ability Hard of Hearing Safety Awareness Decreased Safety Awareness Memory Description Short Term Impaired Gross Range of Motion Lower Extremity ROM Assessment Within Functional Limits Strength Lower Extremity Strength Hip 4-/5 Knee 4-/5 Muscle Tone Muscle Tone WNL Yes M6 PT-IP Treatment Start: 01/27/22 13:14 Freq: NEEDED Status: Active Protocol: Document 01/27/22 10:35 AB (Rec: 01/27/22 13:46 AB [id number]) Physical Therapy Treatment Education Education Provided Safety M7 PT-IP Assessment and Plan Start: 01/27/22 13:14 Freq: NEEDED Status: Active Protocol: Document 01/27/22 10:35 AB (Rec: 01/27/22 13:46 AB [email or web address]) PT Summary Assessment and Plan Potential Rehabilitation Potential Fair Status of Condition at Evaluation Evolving Summary Impairments Pain,ROM,Strength,Balance, Coordination,Sensation,Tone, Cognition,Bed Mobility, Transfers,Gait,Activity Tolerance Assessment Summary pt requiring CGA to min A with mobility and will have his spouse to assist him as needed . will conduct caregiver training when appropriate. Recommending use of FWW at this time. spouse aware. Goals Bed Mobility Goal Independent Transfer Goal Independent,Front Wheeled Walker Gait Goal Independent,Front Wheel Walker Gait Distance 200 Other Goals improve ambulation without AD ~ 250 ft mod I up/down 15 steps L rail mod I Days to Meet Goals 10 Frequency of Treatment Frequency Of Treatment Once a Day Treatment Plan Physical Therapy Treatment Plan Bed Mobility Training,Transfer Training,Gait Training, Therapeutic Exercise,Balance Retraining,Discharge Planning, Hot or Cold Pack,Neuromuscular Re-ed,Coordination Retraining ,Manual Therapy Precautions Other Precautions falls Recommendations To Nursing Amount of Assist Needed 1 Person Assist Discharge Recommendations PT Discharge Recommendations Home with Assistance, Outpatient PT Equipment Needed for Home Before FWW Discharge Transportation Needs at Discharge Private Vehicle
[2022-01-27] MEDS: POTASSIUM CHLORIDE 20 MEQ TAB 40 MEQ PO ×2 (11:27→15:46)
[2022-01-27] MEDS: SODIUM CHLORIDE 0.9% FLUSH 10 ML IV ×2 (11:28→21:28)
--- NOTE | 2022-01-27 12:50 | OT.IP.EVAL ---
Current Diagnoses Acute pyelonephritis (01/27/22) Past Medical History (Last Reviewed 01/26/22 @ 09:25 by Mallika Taylor MD) BPH (benign prostatic hyperplasia) Chronic atrial fibrillation Coronary disease Gout Heart murmur Hypertension Occupational Therapy Inpatient Evaluation/Re-Eval M1 PT/OT-IP Prior Functional Status Start: 01/27/22 12:24 Freq: NEEDED Status: Active Protocol: Document 01/27/22 11:52 [facility] (Rec: 01/27/22 12:50 [facility] [id number]) Medical Review Prior Functional Status Medical History Reviewed Yes Communication Independent Mobility and Gait Pt did not use a device before for ambulation needs. Activities of Daily Living and IADL's Pt completely independent for all ADL's and does all the IADl needs, meds, and finances. Prior Functional Level (Other details) Pt has not driven in a year and that he has not been out to his shop in 2 months due to feeling weak. Social History Household Members spouse Living Arrangements House Number of Floors (Floors) Two Floors Number of Stairs To Enter/Railing? 15 steps with left rail to upstairs which is fully furnished as well as downstairs. Home Environment Standard Height Toilet,High Toilet,Tub/Shower Home Equipment Hand Held Shower M2 OT-IP Current Condition Start: 01/27/22 12:24 Freq: Status: Active Protocol: Document 01/27/22 11:52 [facility] (Rec: 01/27/22 12:50 [facility] [id number]) Occupational Therapy Current Condition Current Condition Evaluation Date 01/27/22 Treatment Diagnosis UTI, acute pyelonephritis Diagnosis Onset Date 01/26/22 M3 OT- IP Subjective and Pain Start: 01/27/22 12:24 Freq: Status: Active Protocol: Document 01/27/22 11:52 [facility] (Rec: 01/27/22 12:50 [facility] [id number]) OT- Subjective Occupational Therapy Visit Type Type Initial Evaluation Visit Start Time 11:52 Visit Stop Time 12:21 Total Visit Minutes 29 Occupational Therapy Visit Comments Patient Comments Pt agreed to get up to wash his hands at the sink. Pt's present during OT eval. Patient/Caregiver Goals To go home. OT Pain Assessment Pain When Pain Assessed At Rest Pain Present Pain Present Denied Pain M4 OT- IP ADL's Start: 01/27/22 12:24 Freq: Status: Active Protocol: Document 01/27/22 11:52 [facility] (Rec: 01/27/22 12:50 [facility] [id number]) OT [id number] Comments OT Self-Feeding Comments Not at meal time. OT ADL-Grooming Comments OT Grooming Comments Pt states did all grooming needs prior. OT ADL-Oral Care Comments Oral Care Comments Pt states did prior. OT ADL-Dressing General Eval Lower Body Dressing Ability Independent Comments OT Dressing Comments Pt able to dulce/dofff his socks independently while seated in the recliner. OT ADL-Toileting General Evaluation Toileting Ability Total Assistance Comments OT Toileting Comments Pt has torrez in place. OT ADL-Bathing Comments OT Bathing Comments Pt and has been thinking about getting a shower chair and installing grab bars for the shower. Able to talk to pt and regarding shower chair versus tub bench and grab bars. M5 OT- IP IADL's Start: 01/27/22 12:24 Freq: Status: Active Protocol: Document 01/27/22 11:52 [facility] (Rec: 01/27/22 12:50 [facility] [id number]) OT-Instrumental Activities of Daily Living Money Management Money Management Caregiver Provides Assistance Meal Preparation Meal Preparation Caregiver Provides Assist [place] [employer]me[employer] [place] [employer]merer Caregiver Provides Assist Driving Driving Comments Pt has not driven in a year. M6 OT- IP Functional Cognition Start: 01/27/22 12:24 Freq: Status: Active Protocol: Document 01/27/22 11:52 [facility] (Rec: 01/27/22 12:50 [facility] [id number]) Cognitive Factors Limiting Selfcare Function Cognitive Ability Level of Alertness Alert Attention Span Ability Capable of Focused Attention, Capable of Sustained Attention Ability to Follow Commands Able to Follow One Step Commands Safety Awareness Underestimates Need for Assistance Cognitive Comments Cognitive Assessment Comments Pt tends to move fast and a bit impulsive. May be beneficial to do SLUMS tomorrow to get accurate cognitive status. Pt's states that he has slowed down with his memory more recently. VC for safety for FWW use to keep the FWW in front of him at all times. OT- Vision and Hearing OT- Hearing Assessment OT- Hearing Assessment WFL OT- Vision Assessment Visual Acuity Glasses All The Time M7 OT- IP Mobility and Balance Start: 01/27/22 12:24 Freq: Status: Active Protocol: Document 01/27/22 11:52 [facility] (Rec: 01/27/22 12:50 [facility] [id number]) OT-Transfer Assessment Sit to and From Stand Sit to and from Stand Standby Assistance Transfers Transfer Ability Standby Assistance,Contact Guard Assistance Technique Transfer Destination Chair Devices Transfer Assistive Devices Gait Belt,Front Wheeled Walker Comments Mobility Comments SBA to stand and from CGA to SBA with FWW as pt moves very fast. OT- Balance Assessment Sitting Balance and Reactions Static Sitting Balance Ability Normal Dynamic Sitting Balance Ability Good Standing Balance and Reactions Static Standing Balance Ability Good Dynamic Standing Balance Ability Fair Comments Other Balance Tests/Deviations/Treatment Pt has a very flexed posture : and at times leans to the left . M8 OT- IP Objective Assessments Start: 01/27/22 12:24 Freq: Status: Active Protocol: Document 01/27/22 11:52 [facility] (Rec: 01/27/22 12:50 [facility] [id number]) OT Gross Range of Motion Upper Extremity Range of Motion Assessment Left Impaired ROM Impairments Pt's flexed trunk appears to limit his shoulder movement in the ends ranges. OT Strength Comments Strength Comments Elbow to distal 4/5 throughout for BUE. OT- Coordination Assessment Upper Extremity Finger to Nose Test Within Functional Limits OT-Muscle Tone Assessment Muscle Tone WNL Yes M9 OT- IP Assessment and Plan Start: 01/27/22 12:24 Freq: Status: Active Protocol: Document 01/27/22 11:52 [facility] (Rec: 01/27/22 12:50 [facility] [id number]) OT Summary Assessment and Plan Potential Rehabilitation Potential Good Analytic Complexity at Evaluation Low Summary OT Impairments Balance,Functional Cognition, Functional Mobility,Dressing, Toileting,Bathing,Toilet Transfers,Shower Transfers, Activity Tolerance Progress Towards Goals Slow Progress due to Medical Issues Assessment Summary Pt low complexity here due to UTI and acute pyelonephritis, main barriers are decreased dynamic balance, decreased safety awareness, and decreased activity tolerance. Pt has a very supportive to be able to assist pt at home. Pt would benefit from home health therpy at home. Able to give pt and suggestion for safety needs at home shower chair, grab bars,etc... Goals Grooming Goal Independent Dressing Goal Independent Toileting Goal Independent Bathing Goal Independent Toilet Transfer Goal Independent Shower Transfer Goal Independent Days to Meet Goals 5 Frequency of Treatment Frequency Of Treatment Once a Day Treatment Plan OT Treatment Plan ADL Training,Functional Cognition Training,Functional Mobility,Patient/Family Education,Discharge Planning Other Treatment Recommendations and Next shower Treatment Focus Discharge Recommendations OT Discharge Recommendations Home with 24 Assist Available Home Health Home Equipment Needs grab bars, shower chair Transportation Needs at Discharge Private Vehicle
--- NOTE | 2022-01-27 14:07 | CM.DANOTE ---
DCP: Payor: Medicare with secondary AARP PCP: Pema Schreiber MD Patient is an 86 y/o M admitted with increased weakness and shallow breathing. Pt is alert and oriented x 3. Pt lives alone with his family but feels he might need a higher level of care such as a SNF. CT of the abdomen showed the L renal mass with possible mets to the spine. R inguinal hernia also noted. DCP met with pt and pt spouse at the bedside this AM. Pt sitting up in bed with spouse next to him. Spouse states that he uses a walker to move around but has been increasingly getting weaker. Pt thinking he needs more rehab to get stronger. Per MD, he is awaiting cultures and is currently on rocephin. MD to adjust ABX as needed per culture. Pt is working with PT and OT and patient is using assisting devices for all ADLs. With the L renal mass and possible mets, pt may need to work with Hematology/Oncology if the family decides to do so. P: DCP to continue to follow case. If SNF or HH indicated, will send referral and clinicals to approved facilities. Awaiting further recommendations from MD. Kathy Flores RN/EZEQUIEL Discharge Planning/Care Management Advanced directive, confirm from FAMILY Start: 01/26/22 11:34 Freq: Q24H Status: Active Protocol: Document 01/26/22 11:34 HCW (Rec: 01/26/22 12:54 HCW [id number]) Advance Directive, confirm on record Time 12:54 Person contacted patient Copy received No CM Discharge Assessment Start: 01/27/22 14:00 Freq: Status: Active Protocol: Document 01/27/22 14:00 AMY (Rec: 01/27/22 14:07 [id number]) Discharge Planning Assessment Assigned Party Plan Dealer Kathy Flores RN/KEIP Advance Directives? Yes Advance Directives on File No History Provided By Significant Other Prior Living Arrangements House Household Members spouse Type of transporation used prior to Relies on Others admit Comment Spouse via POV Independent with ADL's Yes Is patient alert and oriented? Yes Comment Requesting a SNF Caregiver for Another No Patient/Family Preference Longterm Facility,Home with Home Health Barriers to Discharge Yes Comment Pt weakness Whiteboard Updated in Patient Room with Yes name and ext. # of Party Plan Dealer Comment DCP to continue to follow care . Review Status In Process Please Provide Date Initial DC 01/27/22 Assessment Was Performed Next Review Type Continued Stay Review
[2022-01-27] MEDS: TRAMADOL 50 MG TABLET PO (15:47)
[2022-01-27] MEDS: GABAPENTIN 100 MG CAPSULE PO ×2 (15:47→21:27)
--- NOTE | 2022-01-27 16:47 | PM.PN.1 ---
Subjective Subjective Date Patient Seen: 01/27/22 Interval history: VERY PLEASANT 86-YEAR-OLD MALE WITH SOME UNDERLYING DEMENTIA BEING TREATED FOR URINARY TRACT INFECTION PATIENT WAS A RESIDENT AT THE HALFWAY FACILITY. SPOUSE APPEARS TO PREFER PATIENT RETURN TO HOME AT THIS TIME TODAY PATIENT REPORTS SOME DISCOMFORT DUE TO THE URINARY CATHETER REPORTED FEELING OF WANTING TO URINARY DENIES ANY FEVER OR CHILLS DENIES ANY CHEST PAIN. NO CHEST PRESSURE. NO SHORTNESS OF BREATH Exam Vital Signs (past 8 hours): - 01/27/22 09:09 01/27/22 10:56 01/27/22 10:57 Temperature 99.9 F H 99.6 F Pulse Rate 62 Respiratory Rate 17 Blood Pressure 143/59 H Pulse Oximetry 94 93 01/27/22 14:47 01/27/22 15:00 Temperature 101.7 F H 99.3 F Pulse Rate 69 Respiratory Rate 17 Blood Pressure 149/68 H Pulse Oximetry 94 Oxygen Delivery Method Room Air Oxygen Flow Rate 0 Narrative Exam Narrative: NO ACUTE DISTRESS.? PATIENT IS ALERT ORIENTED X3 HEAD ATRAUMATIC NORMOCEPHALIC NECK : SUPPLE NO CAROTID BRUITS EYE:? EOMI, PERRLA, NORMAL CONJUNCTIVA; NO JAUNDICE CHEST:? REGULAR RATE.? ? NO RUBS.? PMI IS NON DISPLACED. NORMAL S1-S2 PULMONARY:? DECREASED BS OVER THE BASES.? MILD BIBASILAR CRACKLES NOTED; ABDOMEN:? SOFT.? NONTENDER.? NONDISTENDED.? BOWEL SOUNDS ARE PRESENT IN ALL 4 QUADRANTS.? EXTREMITIES: NO EDEMA..? NO CYANOSIS CLUBBING NOTED. NEURO:? CRANIAL NERVES 2-12 GROSSLY INTACT. NO FOCAL NEUROLOGICAL DEFICIT NOTED. MSK:? NORMAL RANGE OF MOTION FOR AGE.? NO JOINT EFFUSION. SKIN:? NORMAL FOR ETHNICITY; NO ECCHYMOSIS.? NO LESION. ? GOOD? TURGOR.; NO RASHES :? NORMAL EXTERNAL GENITALIA. IVEY IN PLACE WITH YELLOWISH URINE PSYCH :? APPROPRIATE MOOD AND AFFECT.? ALERT AWAKE ORIENTED X3 Objective Labs Result Diagrams: 01/27/22 04:44 01/27/22 04:44 Labs: Laboratory Results - last 24 hr 01/27/22 01/27/22 01/27/22 04:44 04:44 04:44 WBC 12.1 H RBC 4.19 L Hgb 13.3 L Hct 37.4 L MCV 89.2 MCH 31.7 MCHC 35.5 RDW 13.9 Plt Count 168 Neut % (Auto) 80.3 H Lymph % (Auto) 5.1 L [place] % (Auto) 13.3 Eos % (Auto) 0.6 L Baso % (Auto) 0.7 Neut # (Auto) 9700 H Lymph # (Auto) 600 L [place] # (Auto) 1600 H Eos # (Auto) 100 Baso # (Auto) 100 PT 19.7 H D INR 1.7 H Sodium 138 Potassium 3.3 L Chloride 104 Carbon Dioxide 25 BUN 14 Creatinine 0.84 Estimated GFR > 60 BUN/Creatinine Ratio 16.7 Glucose 176 H Calcium 8.2 L Phosphorus 3.1 Magnesium 1.8 Total Bilirubin 1.2 AST 32 ALT 22 Alkaline Phosphatase 90 Total Protein 7.0 Albumin 3.8 Globulin 3.2 Albumin/Globulin Ratio 1.2 PFSH Medical History BPH (benign prostatic hyperplasia) Chronic atrial fibrillation Coronary disease Gout Heart murmur Hypertension Social History household members: spouse Smoking Status: Never smoker Assessment & Plan Assessment & Plan narrative: IMPRESSION ACUTE ? PYELONEPHRITIS; GRAM NEG RODS SUSPECTED ?LEUKOCYTOSIS SECONDARY TO ABOVE; ON ABX ? ESSENTIAL? 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 PATIENT IS AWARE ? NO INPATIENT INTERVENTION INDICATED ?RIGHT INGUINAL HERNIA.? AWARE.? NO SIGNS OF INCARCERATION ?BPH PER HISTORY ?CHRONIC ATRIAL FIBRILLATION FOR HISTORY ?COUMADIN COAGULOPATHY. ? ? .INR 2.9 ?PLAN CULTURE IS NEGATIVE TO DATE HOWEVER WILL CONTINUE ANTIBIOTICS FOR NOW NO SIGNIFICANT CHANGES NOTED ON WBC COUNT TODAY IF AGAIN NO SIGNIFICANT CHANGES NOTED OVER THE NEXT 24 HOURS WILL SWITCH ANTIBIOTICS TO CEFEPIME FOR BROADER COVERAGE WILL CONSIDER REPEATING URINE CULTURES WELL WILL ADD GABAPENTIN AND TRAMADOL TO HELP WITH DISCOMFORT WITH THE CATHETER CONSIDER ADDING PYRIDIUM TO HELP WITH THE DISCOMFORT WELL IF NEEDED STARTED ON FLOMAX PER HOME DOSE AND PROSCAR. SPOKE TO HIS AT LENGTH IN REGARD TO THE CASE TODAY QUESTION AND CONCERNS ADDRESSED TO HER SATISFACTION AND UNDERSTANDING 01/26 ?CONTINUE ROCEPHIN FOR NOW WHILE AWAITING FOR CULTURE? TO RESOLVE WILL ADJUST ABX PER CLINICAL INDICATION DAILY CBC TO FOLLOW REPLACE POTASSIUM ORALLY FOLLOW LEVEL IN THE AM REFER PATIENT TO PT AND OT FOR EVALUATION? AND TREATMENT? INDICATED MAINTAIN FALL PRECAUTION AT ALL TIMES PATIENT TO USE ASSISTIVE DEVICES FOR ALL ADLS NURSING TO PROVIDE ASSISTANCE WITH ALL ADL WELL IN REGARD TO THE LEFT MASS SHE SUSPECTED TO BE RENAL CELL CARCINOMA ON CT WITH POSSIBLE METASTASIS NO ACUTE INTERVENTION INDICATED AT THIS TIME. MAY NEED TO SEE HEMATOLOGY OUTPATIENT IF SO DESIRED BY PATIENT/ FAMILY GI PROPHYLAXIS ON BOARD CONTINUE COUMADIN ?ADDITIONAL MANAGEMENT PER CLINICAL COURSE Time Spent With Patient Critical Care time: I spent a total of [] minutes of critical care time on this patient's care today; this time is exclusive of procedural time. Quality VTE Deep Vein Thrombosis/Pulmonary Embolism Present on Admission: No
[2022-01-27] MEDS: WARFARIN 5 MG TABLET PO (17:01)
[2022-01-27] MEDS: FUROSEMIDE 20 MG/2 ML VIAL IV (17:01)
[2022-01-27] MEDS: TAMSULOSIN 0.4 MG CAPSULE PO (21:27)
[2022-01-27] MEDS: FINASTERIDE 5 MG TABLET PO (21:27)
[2022-01-28] VITALS (7 sets, daily range): BP systolic 123–155; BP diastolic 62–82; PULSE 70–78; RESP 16–18; TEMP 37.1–37.4; O2SAT 92–95
[2022-01-28 05:43] LABS: Add Manual Diff / Slide Review NO; Basophils Absolute Auto 100 /uL (0-100); Basophils Percent Auto 0.7 % (0-2); Eosinophils Absolute Auto 300 /uL (0-450); Eosinophils Percent Auto 3.1 % (2-4); Hematocrit 39.6 % (41-53); Hemoglobin 13.9 g/dL (13.5-17.5); Lymphocytes Absolute Auto 600 /uL (1100-4500); Lymphocytes Percent Auto 5.7 % (25-40); Mean Corpuscular Hemoglobin 31.6 PG (26-34); Mean Corpuscular Volume 90.3 fL (80-100); Monocytes Absolute Auto 1300 /uL (0-900); Monocytes Percent Auto 12.1 % (3-14); Neutrophils Absolute Auto 8500 /uL (1500-7000); Neutrophils Percent Auto 78.4 % (50-75); Platelet Count 163 X10^3/uL (150-400); Red Blood Cell Count 4.39 X10^6/uL (4.5-5.9); Red Cell Distribution Width 14.3 % (11.6-14.8); White Blood Cell Count 10.8 X10^3/uL (4.5-11.0)
[2022-01-28 05:57] LABS: Alanine Aminotransferase 25 IU/L (<50); Albumin 3.8 g/dL (3.5-5.0); Albumin Globulin Ratio 1.1 (1.0-2.8); Alkaline Phosphatase 103 U/L (38-126); Aspartate Aminotransferase 32 IU/L (17-59); BUN Creatinine Ratio 25.3 (6-22); Bilirubin Total 1.1 mg/dL (0.2-1.3); Blood Urea Nitrogen 19 mg/dL (9-20); Calcium 8.7 mg/dL (8.4-10.2); Carbon Dioxide 26 mmol/L (22-32); Chloride 104 mmol/L (98-107); Estimated Glomerular Filt Rate > 60 mL/min (>60); Globulin 3.4 g/dL (1.7-4.1); Glucose 178 mg/dL (80-110); HEMOLYSIS < 15 (0-50); Magnesium 1.8 mg/dL (1.6-2.3); Phosphorous 3.1 mg/dL (2.3-3.7); Potassium 3.9 mmol/L (3.4-5.1); Sodium 140 mmol/L (137-145); Total Protein 7.2 g/dL (6.3-8.2)
[2022-01-28 06:19] LABS: INR 1.5 (0.9-1.3); Prothrombin Time 17.1 SECONDS (10.1-12.7)
[2022-01-28] MEDS: FUROSEMIDE 40 MG TABLET PO (08:53)
[2022-01-28] MEDS: ENOXAPARIN 40 MG/0.4 ML SYRINGE SUBCUT (08:53)
[2022-01-28] MEDS: cefTRIAXone 1,000 MG in SODIUM CHLORIDE 0.9% 100 ML 200 MG IV (08:53)
[2022-01-28] MEDS: FAMOTIDINE 20 MG TABLET PO (08:53)
[2022-01-28] MEDS: GABAPENTIN 100 MG CAPSULE PO ×2 (08:53→14:21)
[2022-01-28] MEDS: SODIUM CHLORIDE 0.9% FLUSH 10 ML IV (09:02)
--- NOTE | 2022-01-28 11:44 | PT.IPTN ---
Current Diagnoses Acute pyelonephritis (01/26/22) Physical Therapy Treatment Note M2 PT-IP Current Condition Start: 01/27/22 13:14 Freq: NEEDED Status: Active Protocol: Document 01/27/22 10:35 AB (Rec: 01/27/22 13:46 AB [id number]) Physical Therapy Current Condition Current Condition Evaluation Date 01/27/22 Treatment Diagnosis CHF; pylonephritis; difficulty in walking Onset Date 01/26/22 M3 PT-IP Subjective Start: 01/27/22 13:14 Freq: NEEDED Status: Active Protocol: Document 01/28/22 11:24 KS (Rec: 01/28/22 12:16 KS [id number]) Subjective Physical Therapy Visit Type Type Treatment Note Visit Start Time 11:24 Visit Stop Time 11:44 Total Visit Minutes 20 Notes Pts present during treatment. Number of BURRING WHEEL OPERATOR Visits 1 Physical Therapy Visit Comments Patient Comments pt is agreeable to do PT M4 PT-IP Mobility and Gait Start: 01/27/22 13:14 Freq: NEEDED Status: Active Protocol: Document 01/28/22 11:24 KS (Rec: 01/28/22 12:16 KS [id number]) PT-Transfer Assessment Sit to and From Stand Sit to and from Stand Standby Assistance,1 Person Assistance,Use of Upper Extremities Equipment Transfer Assistive Device Gait Belt,Front Wheeled Walker Orthotic/Prosthetic Devices or Brace: No Transfers Transfer Destination Chair Transfer Technique ambulated w/ FWW Transfer Ability Level of Assist Contact Guard Assistance, Minimal Assistance,1 Person Assistance,Use of Upper Extremities Comments Mobility Comments Pt in chair upon arrival and agreeable to ambulate but refused stair training stating he has no issues w/ stairs at home. Pt SBA for sit<>stand w / FWW. Pt impulsive and began ambulating w/ FWW and stepped far outside of FWW when turning, needing Min A to correct. Pt needed frequent cues to stay inside FWW and to ambulate slower and w/ more caution and upright posture. Pts use of FWW improved w/ distance and cues and he completed ~100 ft. Pt returned to chair and was mildly SOB, but O2 92-95% on RA and MS: 77 . Pt left in chair w/ all needs in reach. Gait Assessment Gait Gait Assistance Required: Contact Guard Assist,Minimum Assistance,1 Person Assist Distance (Feet) 100 Able to Maintain Weight Bearing Status Yes During Gait Assistive Devices Assistive Device Gait Belt,Front Wheeled Walker Orthotic/Prosthetic Devices or Brace: No Gait Deviations General Gait Pattern Ataxic,Decreased Stride Length ,Decreased Feet Clearance, Flexed Trunk,Lateral Trunk Lean,Step-to Gait Factors Limiting Gait Function Factors Limiting Gait Function Decreased Activity Tolerance, Decreased Strength,Poor Balance,Poor Safety Awareness Comments Gait Comments Please refer to mobility section for details. Stair Climbing Assessment Comments Stair Climbing Comments Pt refused today stating he wants to go home. PT-Balance Assessment Sitting Balance and Reactions Static Sitting Balance Ability Good Dynamic Sitting Balance Ability Good Standing Balance and Reactions Static Standing Balance Ability Fair Dynamic Standing Balance Ability Fair Device Used FWW M5 PT-IP Objective Assessments Start: 01/27/22 13:14 Freq: NEEDED Status: Active Protocol: Document 01/27/22 10:35 AB (Rec: 01/27/22 13:46 AB [id number]) Orientation Orientation/Cognition Level of Alertness Alert Orientation Name,Place,Situation Language Function Ability Hard of Hearing Safety Awareness Decreased Safety Awareness Memory Description Short Term Impaired Gross Range of Motion Lower Extremity ROM Assessment Within Functional Limits Strength Lower Extremity Strength Hip 4-/5 Knee 4-/5 Muscle Tone Muscle Tone WNL Yes M6 PT-IP Treatment Start: 01/27/22 13:14 Freq: NEEDED Status: Active Protocol: Document 01/28/22 11:24 KS (Rec: 01/28/22 12:16 KS [id number]) Physical Therapy Treatment Education Education Provided Safety Other Treatments Other Treatment Performed Demonstrated gait belt application to pts who was able to complete. Discussed HHPT. Instructed pts on how to provide cues to pt for FWW management and safety while ambulating. M7 PT-IP Assessment and Plan Start: 01/27/22 13:14 Freq: NEEDED Status: Active Protocol: Document 01/28/22 11:24 KS (Rec: 01/28/22 12:16 KS [id number]) PT Summary Assessment and Plan Potential Rehabilitation Potential Fair Status of Condition at Evaluation Evolving Summary Impairments Pain,ROM,Strength,Balance, Coordination,Sensation,Tone, Cognition,Bed Mobility, Transfers,Gait,Activity Tolerance Assessment Summary Pt CGA to Min A for ambulation w/ FWW w/ frequent cues for FWW mgmt and safety. Pt impulsive when ambulating. Provided pts w/ gait belt education and cues to give pt for safe use of FWW at home. Pt ambulated ~100 ft w/ FWW and improved use w/ cues and distance. Pts states he has FWW at home to use. They are interested in HHPT. Goals Bed Mobility Goal Independent Transfer Goal Independent,Front Wheeled Walker Gait Goal Independent,Front Wheel Walker Gait Distance 200 Other Goals improve ambulation without AD ~ 250 ft mod I up/down 15 steps L rail mod I Days to Meet Goals 10 Frequency of Treatment Frequency Of Treatment Once a Day Treatment Plan Physical Therapy Treatment Plan Bed Mobility Training,Transfer Training,Gait Training, Therapeutic Exercise,Balance Retraining,Discharge Planning, Hot or Cold Pack,Neuromuscular Re-ed,Coordination Retraining ,Manual Therapy Other Recommendations and Next Treatment Stair training, ambulation w/ Focus FWW, caregiver training Precautions Other Precautions falls Recommendations To Nursing Amount of Assist Needed 1 Person Assist Discharge Recommendations PT Discharge Recommendations Home with Assistance, Outpatient PT Equipment Needed for Home Before FWW Discharge Transportation Needs at Discharge Private Vehicle
--- NOTE | 2022-01-28 13:20 | P.DS_ITS ---
History of Present Illness History of Present Illness Date Patient Seen: 01/28/22 Chief complaint: shallow breathing, weakness Narrative: THIS IS AN 86-YEAR-OLD MALE WHO HAS A HISTORY OF BPH, HYPERTENSION AND HYPERLIPIDEMIA HE WAS BROUGHT TO THE HOSPITAL DUE TO INCREASING WEAKNESS. PATIENT IS ALERT, AWAKE, ORIENTED X3. HE REPORTED THAT HE HAS BEEN FEELING WEAKER AND WEAKER OVER LAST FEW DAYS. REPORTED THAT HE LIVES AT HOME WITH HIS . BUT FEELS LIKE HE MIGHT NEED SNF IN THE ER, IT WAS NOTED TO HAVE A SLIGHTLY ELEVATED WHITE BLOOD CELL COUNT. URINE WAS WITH +1 LEUKO ESTERASE COAGULOPATHY RELATED TO WARFARIN ALSO APPRECIATED. CT OF THE HEAD SHOWING EVIDENCE OF VOLUME LOSS WITHOUT ACUTE PROCESS CT ABDOMEN REPORTED AND LEFT RENAL MASS WITH POSSIBLE METASTASIS TO THE LUMBAR SPINE. A RIGHT INGUINAL HERNIA ALSO REPORTED Discharge Providers Provider Date of admission: 01/26/22 10:42 Discharge Date: 01/28/22 Primary care physician: Pema Schreiber DO Consults: 01/26/22 14:38 Consult to Occupational Therapy Evaluate & Treat Comment: Physician Instructions: Evaluate and treat Consult to Physical Therapy Evaluate & Treat Comment: Physician Instructions: Evaluate and Treat 01/27/22 15:06 Consult to Urology Routine Comment: Pt has left renal mass with mets. Consulting Provider: Danish King Reason for consultation: mass Has provider been notified: Yes 01/28/22 10:19 Consult to Home Health Routine Comment: Reason For Exam: Evaluate and treat, RN, PT, OT, Aide Discharge provider: Cherie Gomez DO Summary Hospital Course Discharge Diagnosis: ACUTE ? PYELONEPHRITIS; GRAM NEG RODS SUSPECTED ?LEUKOCYTOSIS SECONDARY TO ABOVE; ON ABX ? ESSENTIAL? 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 PATIENT IS AWARE ? NO INP ATIENT INTERVENTION INDICATED ?RIGHT INGUINAL HERNIA.? AWARE.? NO SIGNS OF INCARCERATION ?BPH PER HISTORY ?CHRONIC ATRIAL FIBRILLATION FOR HISTORY ?COUMADIN COAGULOPATHY. ?CONTINUE HOME DOSE Hospital Course: THIS IS A VERY PLEASANT 86-YEAR-OLD MALE ADMITTED TO THE HOSPITAL WITH INCREASING WEAKNESS WHICH HAS BEEN GOING A FEW DAYS PRIOR TO COMING TO THE HOSPITAL. THIS WAS LIKELY RELATED TO ACUTE INFECTION THAN URINARY TRACT. PATIENT WAS T REATED WITH ANTIBIOTICS DUE TO ELEVATED WHITE BLOOD CELL COUNT NOTED ON ADMISSION. HIS URINE CULTURE I EVER DID NOT HAVE ANY SIGNIFICANT GROWTH. THIS COULD HAVE BEEN DUE TO HAVING BEEN SENT AFTER GIVEN ANTIBIOTICS. IN ANY CASE, [facility] HIS WHITE BLOOD CELL COU NT IS BACK TO WITHIN NORMAL LIMIT. HE WILL BE DISCHARGED ON OMNICEF. PATIENT HAS A KIDNEY MASS WELL ON THE LEFT. THIS IS REPORTED BEING POSSIBLE LEFT RENAL CARCINOMA. METASTASIS IS ALSO SUSPECTED. HE HAS BEEN SET UP TO SEE UROLOGY OUTPATIENT. A FOLLOW-UP APPOINTMENT BEING SCHEDULE BY THE NURSING STAFF. AT THIS TIME, HE APPEARS TO BE STABLE AND WILL BE DISCHARGED HOSPITAL TO HOME WITH ANTIBIOTICS I MENTIONED EARLIER. I SPOKE TO PATIENT'S AT BEDSIDE MULTIPLE TIMES IN REGARD TO THE CASE. QUESTIONS AND CONCERNS ADDRESSED TO HER SATISFACTION. OF NOTE, PATIENT SHOWS SIGN OF URINARY RETENTION DURING THIS HOSPITAL STAY. A IVEY CATHETER WAS INSERTED. PATIENT WILL BE DISCHARGED WITH THE IVEY CATHETER UNTIL HE FOLLOWS UP WITH UROLOGY. AT THAT TIME UROLOGY COULD MAKE A DETERMINATION TO REMOVE THE IVEY OR NOT. HE IS ON FLOMAX AND PROSCAR ACTIVITIES WILL BE TOLERATED CARDIAC DIET FOLLOW-UP WITH PRIMARY CARE PHYSICIAN WITHIN 1-2 WEEKS FOLLOW-UP WITH UROLOGY IN February ARRANGED BY OUR STAFF Status at Discharge Cognitive/behavioral status at discharge: oriented Functional status at discharge: independent ambulation Overall status at discharge: patient is progressing back to baseline Exam Vital Signs (past 8 hours): - 01/28/22 06:00 01/28/22 08:25 01/28/22 09:26 Temperature 99.3 F Pulse Rate 77 74 Respiratory Rate 18 16 Blood Pressure 154/82 H Pulse Oximetry 92 93 94 01/28/22 10:00 Temperature Pulse Rate Respiratory Rate Blood Pressure Pulse Oximetry 95 Oxygen Delivery Method Room Air Oxygen Flow Rate 0 Narrative Exam Narrative: NO ACUTE DISTRESS.? PATIENT IS ALERT ORIENTED X3 HEAD ATRAUMATIC NORMOCEPHALIC NECK : SUPPLE ? NO CAROTID BRUITS EYE:? EOMI, PERRLA, NORMAL CONJUNCTIVA; NO JAUNDICE CHEST:? REGULAR RATE.? ? NO RUBS.? PMI IS NON DISPLACED. NORMAL S1-S2 PULMONARY:? DECREASED BS OVER THE BASES.? MILD BIBASILAR CRACKLES NOTED;? ABDOMEN:? SOFT.? NONTENDER.? NONDISTENDED.? BOWEL SOUNDS ARE PRESENT IN ALL 4 QUADRANTS.? EXTREMITIES: NO EDEMA..? NO CYANOSIS CLUBBING NOTED. NEURO:? CRANIAL NERVES 2-12 GROSSLY INTACT. NO FOCAL NEUROLOGICAL DEFICIT NOTED. MSK:? NORMAL RANGE OF MOTION FOR AGE.? NO JOINT EFFUSION. SKIN:? NORMAL FOR ETHNICITY; NO ECCHYMOSIS.? NO LESION. ? GOOD? TURGOR.; NO RASHES :? NORMAL EXTERNAL GENITALIA. IVEY IN PLACE WITH YELLOWISH URINE PSYCH :? APPROPRIATE MOOD AND AFFECT.? ALERT AWAKE ORIENTED X3 Objective Labs Result Diagrams: 01/28/22 05:15 01/28/22 05:15 Labs: Laboratory Results - last 24 hr 01/28/22 01/28/22 01/28/22 05:15 05:15 05:15 WBC 10.8 RBC 4.39 L Hgb 13.9 Hct 39.6 L MCV 90.3 MCH 31.6 MCHC 35.0 RDW 14.3 Plt Count 163 Neut % (Auto) 78.4 H Lymph % (Auto) 5.7 L [place] % (Auto) 12.1 Eos % (Auto) 3.1 Baso % (Auto) 0.7 Neut # (Auto) 8500 H Lymph # (Auto) 600 L [place] # (Auto) 1300 H Eos # (Auto) 300 Baso # (Auto) 100 PT 17.1 H INR 1.5 H Sodium 140 Potassium 3.9 Chloride 104 Carbon Dioxide 26 BUN 19 Creatinine 0.75 Estimated GFR > 60 BUN/Creatinine Ratio 25.3 H Glucose 178 H Calcium 8.7 Phosphorus 3.1 Magnesium 1.8 Total Bilirubin 1.1 AST 32 ALT 25 Alkaline Phosphatase 103 Total Protein 7.2 Albumin 3.8 Globulin 3.4 Albumin/Globulin Ratio 1.1 [facility] Medical History BPH (benign prostatic hyperplasia) Chronic atrial fibrillation Coronary disease Gout Heart murmur Hypertension Social History household members: spouse Smoking Status: Never smoker Discharge Plan Discharge Plan Patient Disposition: Home Provider Discharge Comment: OK TO TO DC WITH IVEY PLZ; TO BE REMOVED BY UROLOGY. Nursing Discharge Comment: F/U WITH UROLOGY ON 02/19/22 Discharge orders & Medications Prescriptions: New tramadol 50 mg Tablet 50 mg PO QID PRN (Reason: Pain, Moderate (4-6)) Qty: 20 0RF famotidine [Pepcid AC] 20 mg Tablet 40 mg PO BEDTIME Qty: 60 0RF tamsulosin [Flomax] 0.4 mg Capsule 0.4 mg PO BEDTIME Qty: 60 0RF gabapentin 100 mg Capsule 100 mg PO TID Qty: 90 0RF finasteride 5 mg Tablet 5 mg PO BEDTIME Qty: 60 0RF cefdinir 300 mg capsule 300 mg PO BID Qty: 14 0RF Lactobac 2-Bifido 1-S. therm 112.5 billion cell capsule 1 cap PO BID Qty: 30 0RF Continued amlodipine 10 mg tablet 10 mg PO DAILY 0RF atorvastatin 80 mg tablet 80 mg PO DAILY 0RF tamsulosin 0.4 mg capsule 0.4 mg PO DAILY 0RF furosemide 20 mg tablet 20 mg DAILY 0RF Label Comments: Take 1 tablet by mouth every morning benazepril 40 mg tablet 40 mg PO DAILY 0RF warfarin 5 mg tablet 5 mg DAILY 0RF Follow up/Referrals: Danish King MD [Physician] - 02/19/22 12:30 pm (appt:02/19 check in @ [address] king @ [address] [place] [address] ) Pema Schreiber DO [Primary Care Provider] - Diet/Activity/Treatments Diet: Low-fat and Low-cholesterol Activity: TOLERATED Discharge Data Primary Care Provider: Pema Schreiber Attending Provider: Cherie Gomez VTE Deep Vein Thrombosis/Pulmonary Embolism Present on Admission: No
--- NOTE | 2022-01-28 13:39 | CM.DPC ---
DCP Cont. DCP met with pt and spouse at bedside. Spouse is interested in HH and per OT recommendations, pt to go home with 24/7 assist and home health with shower chair and grab bars needed. Pt given information about [facility] and brochure on private pay caregivers. Per MD, pt is ready for discharge today and to follow up with urology on 02/19/22. DCP faxed referral, PT/OT notes, H&P, [id number] and other clinicals to [facility]. Pt spouse updated and is agreeable. P: Pt to be d/c today via Spouse POV and to be seen by [facility]. Kathy Flores RN/DCP
== END 2022-01-28 14:25 | disposition home or self-care (01) ==
LOC: ED 10:17 → AC 10:44
PROVIDERS: Admitting Provider Hospitalist; Emergency Provider Emergency Medicine; PCP Family Medicine; Referring Provider Emergency Medicine; Visit Provider Hospitalist
DX: N10 Acute pyelonephritis (principal); I48.20 Chronic atrial fibrillation, unspecified; E87.6 Hypokalemia; N40.1 Benign prostatic hyperplasia with lower urinary tract symptoms; I10 Essential (primary) hypertension; E78.5 Hyperlipidemia, unspecified; R53.1 Weakness; R29.6 Repeated falls; T83.84XA Pain due to genitourinary prosthetic devices, implants and grafts, initial encounter; Z79.01 Long term (current) use of anticoagulants; Z20.822 Contact with and (suspected) exposure to COVID-19
CPT/HCPCS: 36415; 70450; 71045; 74178; 80053; 81001; 83735; 83880; 84100; 84145; 84484; 85025; 85610; 87086; 87635; 94760; 96365; 96366; 96372; 96375; 96376; 97116; 97162; 97165; 97530; 97535; 99284; C9803; G0378; A9270; J0696; J1650; J1940

== ENCOUNTER 2022-02-05 16:44 | Emergency (ER) | payer MEDICARE, SELFPAY ==
[2022-01-26 11:29] VITALS: BMI 25.2
[2022-02-05 16:58] VITALS: BP 167/77; PULSE 64; RESP 16; TEMP 36.7; O2SAT 98; BMI 25.2
--- NOTE | 2022-02-05 19:47 | PC.NURSE ---
Pt has torrez catheter on arrival attached to leg bag, urine in bag is dark red. Pt states yesterday urine was normal and yellow, this morning she noted pill sized clots in overnight bag. reports no urine output this morning, urine assessed in bag is first pt has had since overnight. Pt states she has changed to leg bag for day use since Wednesday in accordance to home health nurse instruction.
[2022-02-05 20:31] VITALS: BP 178/102; PULSE 61; RESP 18; O2SAT 99
--- NOTE | 2022-02-05 21:21 | PC.NURSE ---
Per verbal order from Dr. Bains, catheter flushed with appxoimately 60ml sterile water, equal amount of flush drained. Catheter flowing with clear urine, pink tinged.
--- NOTE | 2022-02-05 21:56 | ED_ITS ---
HPI - Male Genitourinary General Chief complaint: Urogenital-Male Stated complaint: plugged urinary catheter Time Seen by Provider: 02/05/22 21:44 History of Present Illness HPI Narrative: Patient is an 86-year-old male with history of BPH, hypertension, hyperlipidemia, on Coumadin for atrial fibrillation presents today with clogged urinary catheter. He was admitted January 26 through January 28 for UTI and mild confusion. Godinez catheter has been placed ever since. has been monitoring output closely noticed that he did have output for couple hours today and brought him in. It was easily flushed there was gross blood and initially a however as cleared all with minimal irrigation and no blood clots were removed. He is having pain and discomfort at his penis worse catheter isn't is actually leaking. he was discharged home on cefdinir states that he finished his course yesterday. He is having some irritation she bought [id number] azo for him. No fever or chills. Overall feeling better. Urine culture from January 26 actually did not show any growth. now also states that he has had copious amounts of diarrhea that started yesterday. She feels that he may be dehydrated. He is not dizzy or lightheaded. No increased confusion. No chest pain or palpitations. Related Data Home Medications Medication Instructions Recorded Confirmed amlodipine 10 mg tablet 10 mg PO DAILY 01/26/22 01/28/22 atorvastatin 80 mg tablet 80 mg PO DAILY 01/26/22 01/28/22 benazepril 40 mg tablet 40 mg PO DAILY 01/26/22 01/28/22 furosemide 20 mg tablet 20 mg DAILY 01/26/22 01/28/22 warfarin 5 mg tablet 5 mg DAILY 01/26/22 01/28/22 Previous Rx's Medication Instructions Recorded Lactobac no.2-Bifidobac no.1-S. 1 cap PO BID #30 cap 01/28/22 thermo 112.5 billion cell capsule Pepcid AC 20 mg tablet (famotidine) 40 mg PO BEDTIME #60 tab NS 01/28/22 finasteride 5 mg tablet 5 mg PO BEDTIME #60 tab 01/28/22 gabapentin 100 mg capsule 100 mg PO TID #90 cap 01/28/22 tamsulosin 0.4 mg capsule (Flomax) 0.4 mg PO BEDTIME #60 cap 01/28/22 tramadol 50 mg tablet 50 mg PO QID PRN #20 tab 01/28/22 ciprofloxacin HCl 500 mg tablet 500 mg PO BID 3 Days #6 tab 02/05/22 Allergies Allergy/AdvReac Type Severity Reaction Status Date / Time No Known Drug Allergies Allergy Verified 02/05/22 17:04 Review of Systems Review of Systems Narrative: GENERAL: Denies chills,fever HEENT: Denies throat pain RESPIRATORY: Denies dyspnea, cough, wheezing CARDIOVASCULAR: Denies chest pain, palpitations GASTROINTESTINAL: Denies nausea, vomiting : See HPI MUSCULOSKELETAL: Denies extremity pain, injury SKIN: No rash, no laceration, no pruritus NEUROLOGIC: Denies weakness, dizziness, headache, numbness 8 point review of systems is negative except for those stated above and HPI Patient History Medical History BPH (benign prostatic hyperplasia) Chronic atrial fibrillation Coronary disease Gout Heart murmur Hypertension Social History household members: spouse Smoking Status: Never smoker Smoking Status: Never smoker alcohol intake frequency: holidays/special occasions only Substance Use Type: does not use Exam Initial Vital Signs Initial Vital Signs: Vital Signs Temperature 98.1 F 02/05/22 16:58 Pulse Rate 64 02/05/22 16:58 Respiratory Rate 16 02/05/22 16:58 Blood Pressure 167/77 H 02/05/22 16:58 Pulse Oximetry 98 02/05/22 16:58 GENERAL: Alert pleasant 86-year-old male HEENT: Head atraumatic,EOMI, pupils reactive, face symmetric, moist mucous membranes CARDIOVASCULAR: Regular rate and rhythm without murmurs, rubs or gallops. RESPIRATORY: Breath sounds equal bilaterally, no wheezes rales or rhonchi. ABDOMEN: Soft, nontender. Normoactive bowel sounds all 4 quadrants. No guarding or rebound. : Godinez catheter in place, no gross blood EXTREMITIES: Normal range of motion, no clubbing or edema. Neurovascularly intact NEUROLOGICAL: Alert and oriented x4.Normal gait and speech. SKIN: Warm, dry, no laceration, no petechiae, no rashes or lesions. Course Orders Ordered: ED Orders 02/05/22 22:19 CBC Auto Diff [Complete Blood Count AUTO DIFF] Stat CMP [Comprehensive Metabolic Panel] Stat Lactate (Lactic Acid) Stat Procalcitonin Stat Prothrombin Time INR Stat 02/05/22 22:26 UA Complete [Urinalysis and Microscopic] Stat Urine Culture Stat Vital Signs Vital signs: Vital Signs - 8 hr 02/05/22 23:58 Pulse Rate 60 Respiratory Rate 18 Blood Pressure 190/92 H Pulse Oximetry 99 MDM - Male Genitourinary Lab Data Result diagrams: 02/05/22 22:19 02/05/22 22:19 Labs: Lab Results 02/05/22 02/05/22 02/05/22 Range/Units 22:19 22:19 22:19 WBC 11.5 H (4.5-11.0) X10^3/uL RBC 4.24 L (4.5-5.9) X10^6/uL Hgb 13.4 L (13.5-17.5) g/dL Hct 37.8 L (41-53) % MCV 89.2 (80-100) fL MCH 31.5 (26-34) PG MCHC 35.3 (30-36) % RDW 13.7 (11.6-14.8) % Plt Count 289 (150-400) X10^3/uL Neut % (Auto) 80.3 H (50-75) % Lymph % (Auto) 9.0 L (25-40) % [place] % (Auto) 7.8 (3-14) % Eos % (Auto) 2.3 (2-4) % Baso % (Auto) 0.6 (0-2) % Neut # (Auto) 9300 H (1527-6436) /uL Lymph # (Auto) 1000 L (8656-6493) /uL [place] # (Auto) 900 (0-900) /uL Eos # (Auto) 300 (0-450) /uL Baso # (Auto) 100 (0-100) /uL PT 26.7 H D (10.1-12.7) SECONDS INR 2.3 H (0.9-1.3) Sodium 139 (137-145) mmol/L Potassium 4.3 (3.4-5.1) mmol/L Chloride 105 (98-107) mmol/L Carbon Dioxide 23 (22-32) mmol/L BUN 16 (9-20) mg/dL Creatinine 0.80 (0.66-1.25) mg/dL Estimated GFR > 60 (>60) mL/min BUN/Creatinine Ratio 20.0 (6-22) Glucose 163 H (80-110) mg/dL Lactate (0.7-2.1) mmol/L Calcium 9.2 (8.4-10.2) mg/dL Total Bilirubin 0.9 (0.2-1.3) mg/dL AST 39 (17-59) IU/L ALT 44 (<50) IU/L Alkaline Phosphatase 124 (38-126) U/L Total Protein 8.3 H (6.3-8.2) g/dL Albumin 4.3 (3.5-5.0) g/dL Globulin 4.0 (1.7-4.1) g/dL Albumin/Globulin Ratio 1.1 (1.0-2.8) Procalcitonin (<0.5) ng/mL Urine Color Urine Appearance Urine pH (4.5-8.0) Ur Specific [place] (1.000-1.035) Urine Protein (Negative) Urine Glucose (UA) (Negative) g/dL Urine Ketones (NEGATIVE) Urine Occult Blood (Negative) Urine Nitrate (Negative) Urine Bilirubin (NEGATIVE) Urine Urobilinogen (0.2) E.U./dL Ur Leukocyte Esterase (NEGATIVE) Urine RBC (0-5/HPF) Urine WBC (0-5/HPF) Urine Bacteria (None) Ur Culture Indicated? 02/05/22 02/05/22 02/05/22 Range/Units 22:19 22:19 22:26 WBC (4.5-11.0) X10^3/uL RBC (4.5-5.9) X10^6/uL Hgb (13.5-17.5) g/dL Hct (41-53) % MCV (80-100) fL MCH (26-34) PG MCHC (30-36) % RDW (11.6-14.8) % Plt Count (150-400) X10^3/uL Neut % (Auto) (50-75) % Lymph % (Auto) (25-40) % [place] % (Auto) (3-14) % Eos % (Auto) (2-4) % Baso % (Auto) (0-2) % Neut # (Auto) (5005-8255) /uL Lymph # (Auto) (1346-0208) /uL [place] # (Auto) (0-900) /uL Eos # (Auto) (0-450) /uL Baso # (Auto) (0-100) /uL PT (10.1-12.7) SECONDS INR (0.9-1.3) Sodium (137-145) mmol/L Potassium (3.4-5.1) mmol/L Chloride (98-107) mmol/L Carbon Dioxide (22-32) mmol/L BUN (9-20) mg/dL Creatinine (0.66-1.25) mg/dL Estimated GFR (>60) mL/min BUN/Creatinine Ratio (6-22) Glucose (80-110) mg/dL Lactate 1.6 (0.7-2.1) mmol/L Calcium (8.4-10.2) mg/dL Total Bilirubin (0.2-1.3) mg/dL AST (17-59) IU/L ALT (<50) IU/L Alkaline Phosphatase (38-126) U/L Total Protein (6.3-8.2) g/dL Albumin (3.5-5.0) g/dL Globulin (1.7-4.1) g/dL Albumin/Globulin Ratio (1.0-2.8) Procalcitonin 0.05 (<0.5) ng/mL Urine Color Very light pink Urine Appearance Clear Urine pH 6.5 (4.5-8.0) Ur Specific [place] <=1.005 (1.000-1.035) Urine Protein 1+ H (Negative) Urine Glucose (UA) Negative (Negative) g/dL Urine Ketones Negative (NEGATIVE) Urine Occult Blood 3+ H (Negative) Urine Nitrate Negative (Negative) Urine Bilirubin Negative (NEGATIVE) Urine Urobilinogen 0.2 (0.2) E.U./dL Ur Leukocyte Esterase Trace H (NEGATIVE) Urine RBC 30-100/hpf H (0-5/HPF) Urine WBC 0-1/hpf (0-5/HPF) Urine Bacteria None seen (None) Ur Culture Indicated? Specimen cultured MDM Narrative Medical decision making narrative: Godinez catheter easily flushed. He did have some very dark blood but no blood clots. Flushed with less than 250 cc. Remained clear for over an hour. UA is sent. Patient feeling better. At this time I see no need for any further workup. Patient was leaking around his Godinez catheter was replaced by nursing staff. UA is pending no need for antibiotics at this time. I am actually slightly concern for CHF although he has not had any diarrhea while in the emergency department. I discussed with needing outpatient stool sample. Discharge Plan Departure Patient Disposition: Home Clinical Impression: Godinez catheter problem Instructions: How to Care for Your Godinez Catheter -- Male Activity Restrictions/Additional Instructions: *You have been diagnosed with Godinez catheter problem *What to do: At this time continue to monitor Godinez catheter. I would hold off on starting antibiotics will wait for culture and we will call you in 2-3 days if needed. Please see her primary care provider. Please continue to monitor INR *Continue to take medications as directed *Follow up with your primary care provider in 2-3 days or call [phone] *Return to ER if you should have Godinez catheter problem, bleeding, not draining, confusion or any new, worsening or concerning symptoms Prescriptions: No Action ciprofloxacin HCl 500 mg tablet 500 mg PO BID 3 Days Qty: 6 0RF Rx Instructions: Start morning before procedure, continue day of and day after, until medication is gone. HOLD Warfarin day of Appointment. amlodipine 10 mg tablet 10 mg PO DAILY 0RF atorvastatin 80 mg tablet 80 mg PO DAILY 0RF furosemide 20 mg tablet 20 mg DAILY 0RF Label Comments: Take 1 tablet by mouth every morning benazepril 40 mg tablet 40 mg PO DAILY 0RF warfarin 5 mg tablet 5 mg DAILY 0RF tramadol 50 mg Tablet 50 mg PO QID PRN (Reason: Pain, Moderate (4-6)) Qty: 20 0RF famotidine [Pepcid AC] 20 mg Tablet 40 mg PO BEDTIME Qty: 60 0RF tamsulosin [Flomax] 0.4 mg Capsule 0.4 mg PO BEDTIME Qty: 60 0RF gabapentin 100 mg Capsule 100 mg PO TID Qty: 90 0RF finasteride 5 mg Tablet 5 mg PO BEDTIME Qty: 60 0RF Lactobac 2-Bifido 1-S. therm 112.5 billion cell capsule 1 cap PO BID Qty: 30 0RF Referrals: Pema Schreiber DO [Primary Care Provider] - Visit Report Forms: Patient Portal/API
[2022-02-05 22:00] VITALS: BP 170/82; PULSE 60; RESP 16; O2SAT 99
[2022-02-05 22:31] LABS: Add Manual Diff / Slide Review NO; Basophils Absolute Auto 100 /uL (0-100); Basophils Percent Auto 0.6 % (0-2); Eosinophils Absolute Auto 300 /uL (0-450); Eosinophils Percent Auto 2.3 % (2-4); Hematocrit 37.8 % (41-53); Hemoglobin 13.4 g/dL (13.5-17.5); Lymphocytes Absolute Auto 1000 /uL (1100-4500); Mean Corpuscular HGB Conc 35.3 % (30-36); Mean Corpuscular Hemoglobin 31.5 PG (26-34); Mean Corpuscular Volume 89.2 fL (80-100); Monocytes Absolute Auto 900 /uL (0-900); Monocytes Percent Auto 7.8 % (3-14); Neutrophils Absolute Auto 9300 /uL (1500-7000); Neutrophils Percent Auto 80.3 % (50-75); Platelet Count 289 X10^3/uL (150-400); Red Blood Cell Count 4.24 X10^6/uL (4.5-5.9); Red Cell Distribution Width 13.7 % (11.6-14.8); White Blood Cell Count 11.5 X10^3/uL (4.5-11.0)
[2022-02-05 22:38] LABS: INR 2.3 (0.9-1.3); Prothrombin Time 26.7 SECONDS (10.1-12.7)
[2022-02-05 22:40] LABS: Lactate (Lactic Acid) 1.6 mmol/L (0.7-2.1)
[2022-02-05 22:41] LABS: Alanine Aminotransferase 44 IU/L (<50); Albumin 4.3 g/dL (3.5-5.0); Albumin Globulin Ratio 1.1 (1.0-2.8); Alkaline Phosphatase 124 U/L (38-126); Aspartate Aminotransferase 39 IU/L (17-59); Bilirubin Total 0.9 mg/dL (0.2-1.3); Blood Urea Nitrogen 16 mg/dL (9-20); Calcium 9.2 mg/dL (8.4-10.2); Carbon Dioxide 23 mmol/L (22-32); Chloride 105 mmol/L (98-107); Estimated Glomerular Filt Rate > 60 mL/min (>60); Glucose 163 mg/dL (80-110); HEMOLYSIS 46 (0-50); Potassium 4.3 mmol/L (3.4-5.1); Sodium 139 mmol/L (137-145); Total Protein 8.3 g/dL (6.3-8.2)
[2022-02-05 22:43] LABS: Appearance Urine UA CLEAR; Bilirubin Urine UA NEGATIVE (NEGATIVE); Glucose Urine UA NEGATIVE (Negative); Ketones Urine UA NEGATIVE (NEGATIVE); Leukocyte Esterase Urine UA TRACE (NEGATIVE); Nitrite Urine UA NEGATIVE (Negative); Occult Blood Urine UA 3+ (Negative); Protein Urine UA 1+ (Negative); Specific Gravity Urine UA <=1.005 (1.000-1.035); Urobilinogen Urine UA 0.2 E.U./dL (0.2); pH Urine UA 6.5 (4.5-8.0)
[2022-02-05 22:46] LABS: Color Urine UA VERY LIGHT PINK
[2022-02-05 22:57] LABS: Procalcitonin 0.05 ng/mL (<0.5)
[2022-02-05 23:02] LABS: Bacteria Urine None Seen; Culture Indicated Urine Specimen Cultured; RBC Urine 30-100/HPF (0-5/HPF); WBC Urine 0-1/HPF (0-5/HPF)
--- NOTE | 2022-02-05 23:08 | PC.NURSE ---
Pt reports pt having multiple episodes of diarrhea, causing him to be up all last night, reports pt eating/drinking normal. Finished course of antibiotics yesterday morning. Denies any confusion. Pt mentioning urgency, states I'm going to pee on the floor, pt educated and reminded of catheter in places and urine emptying through catheter. Some urine leakage noted around catheter site, assisted pt to change brief, catheter care provided.
[2022-02-05 23:58] VITALS: BP 190/92; PULSE 60; RESP 18; O2SAT 99
--- NOTE | 2022-02-06 00:05 | PC.NURSE ---
Pt peed around existing torrez catheter, per verbal order, catheter removed with 10ml removed from syringe. Per verbal order from Dr. Bains, catheter changed to Coude Catheter 16FR with 10ml balloon.
== END 2022-02-06 00:07 | disposition home or self-care (01) ==
PROVIDERS: Emergency Provider Emergency Medicine; PCP Family Medicine
DX: T83.9XXA Unspecified complication of genitourinary prosthetic device, implant and graft, initial encounter (principal)
CPT/HCPCS: 36415; 80053; 81001; 83605; 84145; 85025; 85610; 87086; 99283

== ENCOUNTER 2022-02-14 02:40 | Emergency (ER) | payer MEDICARE, SELFPAY ==
[2022-01-26 11:29] VITALS: BMI 25.2
[2022-02-14] VITALS (19 sets, daily range): BP systolic 125–192; BP diastolic 60–100; PULSE 70–110; RESP 18–33; TEMP 36.7–37.1; O2SAT 91–99; BMI 25.5
--- NOTE | 2022-02-14 03:01 | ED_ITS ---
HPI - General Adult <Mateo Guaman DO - Last Filed: 02/16/22 17:54> General Chief complaint: Urogenital-Male Stated complaint: Hematuria Time Seen by Provider: 02/14/22 02:45 Source: patient and family Mode of arrival: EMS Limitations: no limitations History of Present Illness HPI narrative: Patient is an 86-year-old male who has an indwelling Godinez catheter that was placed approximately 3 weeks ago after he was admitted to the hospital for urinary tract infection. He also has an enlarged prostate. During the admission to the hospital it was found that he was retaining urine so a catheter was placed. Has been in place since then. He has a follow-up with Urology in approximately 1 week. He also has a history of atrial fibrillation. He is on Coumadin for this. Last evening started to have blood from the catheter in decreased urine output. Does have some lower abdominal tenderness otherwise no other symptoms. Related Data Home Medications Medication Instructions Recorded Confirmed amlodipine 10 mg tablet 10 mg PO DAILY 01/26/22 01/28/22 atorvastatin 80 mg tablet 80 mg PO DAILY 01/26/22 01/28/22 benazepril 40 mg tablet 40 mg PO DAILY 01/26/22 01/28/22 furosemide 20 mg tablet 20 mg DAILY 01/26/22 01/28/22 warfarin 5 mg tablet 5 mg DAILY 01/26/22 01/28/22 Previous Rx's Medication Instructions Recorded Lactobac no.2-Bifidobac no.1-S. 1 cap PO BID #30 caps 01/28/22 thermo 112.5 billion cell capsule Pepcid AC 20 mg tablet (famotidine) 40 mg PO BEDTIME #60 tabs 01/28/22 finasteride 5 mg tablet 5 mg PO BEDTIME #60 tabs 01/28/22 gabapentin 100 mg capsule 100 mg PO TID #90 caps 01/28/22 tamsulosin 0.4 mg capsule (Flomax) 0.4 mg PO BEDTIME #60 caps 01/28/22 tramadol 50 mg tablet 50 mg PO QID PRN Pain, Moderate 01/28/22 (4-6) #20 tabs Allergies Allergy/AdvReac Type Severity Reaction Status Date / Time No Known Drug Allergies Allergy Verified 02/05/22 17:04 Review of Systems <DO Chasidy Interiano Last Filed: 02/16/22 17:54> Constitutional Constitutional: Reports system reviewed and no additional complaints, except as documented Gastrointestinal Gastrointestinal: Reports system reviewed and no additional complaints, except as documented Genitourinary Genitourinary: Reports system reviewed and no additional complaints, except as documented Hematologic/Lymphatic On Anticoagulants: No Patient History <DO Chasidy Interiano Last Filed: 02/16/22 17:54> Medical History BPH (benign prostatic hyperplasia) Chronic atrial fibrillation Coronary disease Gout Heart murmur Hypertension Social History household members: spouse Smoking Status: Never smoker Smoking Status: Never smoker alcohol intake frequency: holidays/special occasions only Substance Use Type: does not use Exam <DO Chasidy Interiano Last Filed: 02/16/22 17:54> Initial Vital Signs Initial Vital Signs: Vital Signs Temperature 98.1 F 02/14/22 02:45 Pulse Rate 89 02/14/22 02:45 Respiratory Rate 18 02/14/22 02:45 Blood Pressure 192/89 H 02/14/22 02:45 Pulse Oximetry 93 02/14/22 02:45 Oxygen Delivery Method 02/14/22 02:45 Const General: cooperative and comfortable HENMT Head: normal to inspection and normocephalic GI Inspection: normal to inspection and non-distended Palpation: No tender Other: Godinez catheter in place. Some blood/urine drainage from around the catheter. External genitalia unremarkable. Neuro General: patient alert, patient awake and moves all extremities Extrem General: capillary refill normal <Gwendolyn Eller DO - Last Filed: 02/14/22 18:13> Initial Vital Signs Initial Vital Signs: Vital Signs Temperature 98.1 F 02/14/22 02:45 Pulse Rate 89 02/14/22 02:45 Respiratory Rate 18 02/14/22 02:45 Blood Pressure 192/89 H 02/14/22 02:45 Pulse Oximetry 93 02/14/22 02:45 Oxygen Delivery Method 02/14/22 02:45 Course <DO Chasidy Interiano Last Filed: 02/16/22 17:54> Orders Ordered: Discontinued Medications Sodium Chloride (Normal Saline 0.9%) 1,000 mls @ 150 mls/hr IV CONT PINEDA Last Infusion: 02/14/22 14:04 Dose: 0 mls/hr Documented By: Admin: 02/14/22 08:39 Dose: 150 mls/hr Documented By: ERICA Phytonadione 5 mg/ Sodium (Chloride) 100.5 mls @ 201 mls/hr IV NOW ONE Stop: 02/14/22 08:28 Last Infusion: 02/14/22 10:26 Dose: 0 mls/hr Documented By: Admin: 02/14/22 08:39 Dose: 201 mls/hr Documented By: ERICA Morphine Sulfate (Morphine 4 Mg/Ml Inj) 4 mg IV Q6HR PRN PRN Reason: Pain, Severe (7-10) Last Admin: 02/14/22 13:37 Dose: 4 mg Documented By: LILLIANA Vital Signs Vital signs: Vital Signs - 8 hr 02/14/22 11:19 02/14/22 11:45 02/14/22 11:19 Temperature 98.4 F 98.7 F Pulse Rate 77 70 81 Respiratory Rate 22 20 Blood Pressure 150/67 H 140/65 Pulse Oximetry 96 02/14/22 11:21 02/14/22 11:21 02/14/22 11:23 Temperature Pulse Rate 109 H Respiratory Rate Blood Pressure 173/100 H 150/67 H Pulse Oximetry 97 02/14/22 11:23 02/14/22 11:30 02/14/22 11:47 Temperature Pulse Rate 76 92 H 110 H Respiratory Rate 20 26 H 33 H Blood Pressure Pulse Oximetry 97 98 96 02/14/22 11:47 02/14/22 11:48 02/14/22 11:48 Temperature Pulse Rate 78 Respiratory Rate 23 Blood Pressure 166/92 H 140/65 Pulse Oximetry 97 02/14/22 12:00 02/14/22 12:01 02/14/22 12:01 Temperature Pulse Rate 85 92 H Respiratory Rate 28 H 24 Blood Pressure 138/81 Pulse Oximetry 97 93 02/14/22 12:30 02/14/22 12:30 02/14/22 13:00 Temperature Pulse Rate 95 H Respiratory Rate 30 H Blood Pressure 145/82 H 125/60 Pulse Oximetry 98 02/14/22 13:00 02/14/22 13:34 02/14/22 13:30 Temperature 98.4 F Pulse Rate 73 80 Respiratory Rate 24 18 Blood Pressure 157/85 H 157/85 H Pulse Oximetry 91 02/14/22 13:30 02/14/22 14:00 02/14/22 14:01 Temperature Pulse Rate 78 74 Respiratory Rate 25 H 22 Blood Pressure Pulse Oximetry 99 97 96 02/14/22 14:01 Temperature Pulse Rate Respiratory Rate Blood Pressure 153/68 H Pulse Oximetry <Gwendolyngeorgette Eller, DO - Last Filed: 02/14/22 18:13> Orders Ordered: Discontinued Medications Sodium Chloride (Normal Saline 0.9%) 1,000 mls @ 150 mls/hr IV CONT PINEDA Last Infusion: 02/14/22 14:04 Dose: 0 mls/hr Documented By: Admin: 02/14/22 08:39 Dose: 150 mls/hr Documented By: ERICA Phytonadione 5 mg/ Sodium (Chloride) 100.5 mls @ 201 mls/hr IV NOW ONE Stop: 02/14/22 08:28 Last Infusion: 02/14/22 10:26 Dose: 0 mls/hr Documented By: Admin: 02/14/22 08:39 Dose: 201 mls/hr Documented By: ERICA Morphine Sulfate (Morphine 4 Mg/Ml Inj) 4 mg IV Q6HR PRN PRN Reason: Pain, Severe (7-10) Last Admin: 02/14/22 13:37 Dose: 4 mg Documented By: LILLIANA Reevaluation(s) Reevaluation #1: Patient seen and evaluated by myself. Patient with irrigated with 10 L here in the department and his catheter immediately clots off when fluid stopped and still has to be modified at times even when irrigation is running. Renal function appears stable, hemoglobin had dropped 2 points from his last visit on the 05 of February but appears stable today 3 hours from the initial. Urine has been clear but there are still clots. Patient's urine does not show any signs of infection. He had a renal mass noted on his last imaging as well as INR of 4 likely worsening his bleeding. At this time we do not have Urology available discussed with patient. CT imaging of chest abdomen and pelvis was obtained and is pending. Time: 07:59 Consultations Consultation #1: Dr. Chinchilla, urology. Recommends giving FFP in addition to the vitamin K already given to have to reverse the patient. He agrees with current course of treatment at this point. They do not have beds available you had up currently but if reversing the patient is not helpful to please call back. 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 Time: 09:17 Consultation #2: Dr. Felix urology at [facility], case reviewed would have us speak with hospitalist. No additional changes, interventions recommended currently. Time: 11:05 Consultation #3: Dr. Brenner, hospitalist at [facility] accepts discussed treatment so far, patient has received vitamin K and FFP continues to have persistent symptoms. He has not had his formal workup for suspected renal cell carcinoma but has concerning changes on imaging which are present today as well. Time: 11:26 Vital Signs Vital signs: Vital Signs - 8 hr 02/14/22 11:19 02/14/22 11:45 02/14/22 11:19 Temperature 98.4 F 98.7 F Pulse Rate 77 70 81 Respiratory Rate 22 20 Blood Pressure 150/67 H 140/65 Pulse Oximetry 96 02/14/22 11:21 02/14/22 11:21 02/14/22 11:23 Temperature Pulse Rate 109 H Respiratory Rate Blood Pressure 173/100 H 150/67 H Pulse Oximetry 97 02/14/22 11:23 02/14/22 11:30 02/14/22 11:47 Temperature Pulse Rate 76 92 H 110 H Respiratory Rate 20 26 H 33 H Blood Pressure Pulse Oximetry 97 98 96 02/14/22 11:47 02/14/22 11:48 02/14/22 11:48 Temperature Pulse Rate 78 Respiratory Rate 23 Blood Pressure 166/92 H 140/65 Pulse Oximetry 97 02/14/22 12:00 02/14/22 12:01 02/14/22 12:01 Temperature Pulse Rate 85 92 H Respiratory Rate 28 H 24 Blood Pressure 138/81 Pulse Oximetry 97 93 02/14/22 12:30 02/14/22 12:30 02/14/22 13:00 Temperature Pulse Rate 95 H Respiratory Rate 30 H Blood Pressure 145/82 H 125/60 Pulse Oximetry 98 02/14/22 13:00 02/14/22 13:34 02/14/22 13:30 Temperature 98.4 F Pulse Rate 73 80 Respiratory Rate 24 18 Blood Pressure 157/85 H 157/85 H Pulse Oximetry 91 02/14/22 13:30 02/14/22 14:00 02/14/22 14:01 Temperature Pulse Rate 78 74 Respiratory Rate 25 H 22 Blood Pressure Pulse Oximetry 99 97 96 02/14/22 14:01 Temperature Pulse Rate Respiratory Rate Blood Pressure 153/68 H Pulse Oximetry Medical Decision Making <aMteo GuamanDO - Last Filed: 02/16/22 17:54> Lab Data Lab results reviewed: Yes I reviewed the patient's lab results. Result diagrams: 02/14/22 07:40 02/14/22 04:30 Labs: Lab Results 02/14/22 02/14/22 02/14/22 Range/Units 04:30 04:30 04:30 WBC 11.5 H (4.5-11.0) X10^3/uL RBC 3.92 L (4.5-5.9) X10^6/uL Hgb 11.9 L (13.5-17.5) g/dL Hct 35.3 L (41-53) % MCV 89.9 (80-100) fL MCH 30.5 (26-34) PG MCHC 33.9 (30-36) % RDW 13.5 (11.6-14.8) % Plt Count 331 (150-400) X10^3/uL Neut % (Auto) 86.9 H (50-75) % Lymph % (Auto) 5.0 L (25-40) % [place] % (Auto) 7.4 (3-14) % Eos % (Auto) 0.2 L (2-4) % Baso % (Auto) 0.5 (0-2) % Neut # (Auto) 74915 H (9419-7062) /uL Lymph # (Auto) 600 L (2720-7297) /uL [place] # (Auto) 900 (0-900) /uL Eos # (Auto) 0 (0-450) /uL Baso # (Auto) 100 (0-100) /uL PT 48.9 H D (10.1-12.7) SECONDS INR 4.2 H (0.9-1.3) Sodium 137 (137-145) mmol/L Potassium 3.8 (3.4-5.1) mmol/L Chloride 104 (98-107) mmol/L Carbon Dioxide 25 (22-32) mmol/L BUN 23 H (9-20) mg/dL Creatinine 1.03 (0.66-1.25) mg/dL Estimated GFR > 60 (>60) mL/min BUN/Creatinine Ratio 22.3 H (6-22) Glucose 206 H (80-110) mg/dL Calcium 8.5 (8.4-10.2) mg/dL Urine Color Urine Appearance Urine pH (4.5-8.0) Ur Specific [place] (1.000-1.035) Urine Protein (Negative) Urine Glucose (UA) (Negative) g/dL Urine Ketones (NEGATIVE) Urine Occult Blood (Negative) Urine Nitrate (Negative) Urine Bilirubin (NEGATIVE) Urine Urobilinogen (0.2) E.U./dL Ur Leukocyte Esterase (NEGATIVE) Urine RBC (0-5/HPF) Urine WBC (0-5/HPF) Urine Bacteria (None) Ur Culture Indicated? SARS-CoV-2 (PCR) (Negative) Blood Type 02/14/22 02/14/22 02/14/22 Range/Units 07:34 07:40 07:45 WBC (4.5-11.0) X10^3/uL RBC (4.5-5.9) X10^6/uL Hgb 12.5 L (13.5-17.5) g/dL Hct 36.6 L (41-53) % MCV (80-100) fL MCH (26-34) PG MCHC (30-36) % RDW (11.6-14.8) % Plt Count (150-400) X10^3/uL Neut % (Auto) (50-75) % Lymph % (Auto) (25-40) % [place] % (Auto) (3-14) % Eos % (Auto) (2-4) % Baso % (Auto) (0-2) % Neut # (Auto) (4876-5842) /uL Lymph # (Auto) (6513-7587) /uL [place] # (Auto) (0-900) /uL Eos # (Auto) (0-450) /uL Baso # (Auto) (0-100) /uL PT (10.1-12.7) SECONDS INR (0.9-1.3) Sodium (137-145) mmol/L Potassium (3.4-5.1) mmol/L Chloride (98-107) mmol/L Carbon Dioxide (22-32) mmol/L BUN (9-20) mg/dL Creatinine (0.66-1.25) mg/dL Estimated GFR (>60) mL/min BUN/Creatinine Ratio (6-22) Glucose (80-110) mg/dL Calcium (8.4-10.2) mg/dL Urine Color Urine Appearance Urine pH (4.5-8.0) Ur Specific [place] (1.000-1.035) Urine Protein (Negative) Urine Glucose (UA) (Negative) g/dL Urine Ketones (NEGATIVE) Urine Occult Blood (Negative) Urine Nitrate (Negative) Urine Bilirubin (NEGATIVE) Urine Urobilinogen (0.2) E.U./dL Ur Leukocyte Esterase (NEGATIVE) Urine RBC (0-5/HPF) Urine WBC (0-5/HPF) Urine Bacteria (None) Ur Culture Indicated? SARS-CoV-2 (PCR) Negative (Negative) Blood Type O Positive 02/14/22 Range/Units 08:45 WBC (4.5-11.0) X10^3/uL RBC (4.5-5.9) X10^6/uL Hgb (13.5-17.5) g/dL Hct (41-53) % MCV (80-100) fL MCH (26-34) PG MCHC (30-36) % RDW (11.6-14.8) % Plt Count (150-400) X10^3/uL Neut % (Auto) (50-75) % Lymph % (Auto) (25-40) % [place] % (Auto) (3-14) % Eos % (Auto) (2-4) % Baso % (Auto) (0-2) % Neut # (Auto) (5302-8641) /uL Lymph # (Auto) (6779-8373) /uL [place] # (Auto) (0-900) /uL Eos # (Auto) (0-450) /uL Baso # (Auto) (0-100) /uL PT (10.1-12.7) SECONDS INR (0.9-1.3) Sodium (137-145) mmol/L Potassium (3.4-5.1) mmol/L Chloride (98-107) mmol/L Carbon Dioxide (22-32) mmol/L BUN (9-20) mg/dL Creatinine (0.66-1.25) mg/dL Estimated GFR (>60) mL/min BUN/Creatinine Ratio (6-22) Glucose (80-110) mg/dL Calcium (8.4-10.2) mg/dL Urine Color Red Urine Appearance Cloudy Urine pH 7.0 (4.5-8.0) Ur Specific [place] 1.015 (1.000-1.035) Urine Protein 2+ H (Negative) Urine Glucose (UA) Negative (Negative) g/dL Urine Ketones Negative (NEGATIVE) Urine Occult Blood 3+ H (Negative) Urine Nitrate Negative (Negative) Urine Bilirubin Negative (NEGATIVE) Urine Urobilinogen 0.2 (0.2) E.U./dL Ur Leukocyte Esterase 1+ H (NEGATIVE) Urine RBC >100/hpf H (0-5/HPF) Urine WBC 1-5/hpf (0-5/HPF) Urine Bacteria None seen (None) Ur Culture Indicated? Specimen cultured SARS-CoV-2 (PCR) (Negative) Blood Type Point of Care Testing Stool Occult Blood Positive Point of care testing: Point of Care Testing Stool Occult Blood Positive MDM Narrative Medical decision making narrative: Initially tried to flush the urinary catheter with this was unsuccessful. The 2 way catheter was removed and a 3 way catheter was placed. Quite a bit of clots returned. Have been proceeding with continuous bladder irrigation. Patient's INR is elevated today. This is probably contributing to his bleeding. No need for emergent reversal. <Gwendolyn Eller, DO - Last Filed: 02/14/22 18:13> Lab Data Labs: Lab Results 02/14/22 02/14/22 02/14/22 Range/Units 04:30 04:30 04:30 WBC 11.5 H (4.5-11.0) X10^3/uL RBC 3.92 L (4.5-5.9) X10^6/uL Hgb 11.9 L (13.5-17.5) g/dL Hct 35.3 L (41-53) % MCV 89.9 (80-100) fL MCH 30.5 (26-34) PG MCHC 33.9 (30-36) % RDW 13.5 (11.6-14.8) % Plt Count 331 (150-400) X10^3/uL Neut % (Auto) 86.9 H (50-75) % Lymph % (Auto) 5.0 L (25-40) % P[place] % (Auto) 7.4 (3-14) % Eos % (Auto) 0.2 L (2-4) % Baso % (Auto) 0.5 (0-2) % Neut # (Auto) 36029 H (8177-2320) /uL Lymph # (Auto) 600 L (9624-8414) /uL [place] # (Auto) 900 (0-900) /uL Eos # (Auto) 0 (0-450) /uL Baso # (Auto) 100 (0-100) /uL PT 48.9 H D (10.1-12.7) SECONDS INR 4.2 H (0.9-1.3) Sodium 137 (137-145) mmol/L Potassium 3.8 (3.4-5.1) mmol/L Chloride 104 (98-107) mmol/L Carbon Dioxide 25 (22-32) mmol/L BUN 23 H (9-20) mg/dL Creatinine 1.03 (0.66-1.25) mg/dL Estimated GFR > 60 (>60) mL/min BUN/Creatinine Ratio 22.3 H (6-22) Glucose 206 H (80-110) mg/dL Calcium 8.5 (8.4-10.2) mg/dL Urine Color Urine Appearance Urine pH (4.5-8.0) Ur Specific [place] (1.000-1.035) Urine Protein (Negative) Urine Glucose (UA) (Negative) g/dL Urine Ketones (NEGATIVE) Urine Occult Blood (Negative) Urine Nitrate (Negative) Urine Bilirubin (NEGATIVE) Urine Urobilinogen (0.2) E.U./dL Ur Leukocyte Esterase (NEGATIVE) Urine RBC (0-5/HPF) Urine WBC (0-5/HPF) Urine Bacteria (None) Ur Culture Indicated? SARS-CoV-2 (PCR) (Negative) Blood Type 02/14/22 02/14/22 02/14/22 Range/Units 07:34 07:40 07:45 WBC (4.5-11.0) X10^3/uL RBC (4.5-5.9) X10^6/uL Hgb 12.5 L (13.5-17.5) g/dL Hct 36.6 L (41-53) % MCV (80-100) fL MCH (26-34) PG MCHC (30-36) % RDW (11.6-14.8) % Plt Count (150-400) X10^3/uL Neut % (Auto) (50-75) % Lymph % (Auto) (25-40) % [place] % (Auto) (3-14) % Eos % (Auto) (2-4) % Baso % (Auto) (0-2) % Neut # (Auto) (7738-0904) /uL Lymph # (Auto) (4554-7536) /uL [place] # (Auto) (0-900) /uL Eos # (Auto) (0-450) /uL Baso # (Auto) (0-100) /uL PT (10.1-12.7) SECONDS INR (0.9-1.3) Sodium (137-145) mmol/L Potassium (3.4-5.1) mmol/L Chloride (98-107) mmol/L Carbon Dioxide (22-32) mmol/L BUN (9-20) mg/dL Creatinine (0.66-1.25) mg/dL Estimated GFR (>60) mL/min BUN/Creatinine Ratio (6-22) Glucose (80-110) mg/dL Calcium (8.4-10.2) mg/dL Urine Color Urine Appearance Urine pH (4.5-8.0) Ur Specific [place] (1.000-1.035) Urine Protein (Negative) Urine Glucose (UA) (Negative) g/dL Urine Ketones (NEGATIVE) Urine Occult Blood (Negative) Urine Nitrate (Negative) Urine Bilirubin (NEGATIVE) Urine Urobilinogen (0.2) E.U./dL Ur Leukocyte Esterase (NEGATIVE) Urine RBC (0-5/HPF) Urine WBC (0-5/HPF) Urine Bacteria (None) Ur Culture Indicated? SARS-CoV-2 (PCR) Negative (Negative) Blood Type O Positive 02/14/22 Range/Units 08:45 WBC (4.5-11.0) X10^3/uL RBC (4.5-5.9) X10^6/uL Hgb (13.5-17.5) g/dL Hct (41-53) % MCV (80-100) fL MCH (26-34) PG MCHC (30-36) % RDW (11.6-14.8) % Plt Count (150-400) X10^3/uL Neut % (Auto) (50-75) % Lymph % (Auto) (25-40) % [place] % (Auto) (3-14) % Eos % (Auto) (2-4) % Baso % (Auto) (0-2) % Neut # (Auto) (3420-6569) /uL Lymph # (Auto) (9315-0034) /uL [place] # (Auto) (0-900) /uL Eos # (Auto) (0-450) /uL Baso # (Auto) (0-100) /uL PT (10.1-12.7) SECONDS INR (0.9-1.3) Sodium (137-145) mmol/L Potassium (3.4-5.1) mmol/L Chloride (98-107) mmol/L Carbon Dioxide (22-32) mmol/L BUN (9-20) mg/dL Creatinine (0.66-1.25) mg/dL Estimated GFR (>60) mL/min BUN/Creatinine Ratio (6-22) Glucose (80-110) mg/dL Calcium (8.4-10.2) mg/dL Urine Color Red Urine Appearance Cloudy Urine pH 7.0 (4.5-8.0) Ur Specific [place] 1.015 (1.000-1.035) Urine Protein 2+ H (Negative) Urine Glucose (UA) Negative (Negative) g/dL Urine Ketones Negative (NEGATIVE) Urine Occult Blood 3+ H (Negative) Urine Nitrate Negative (Negative) Urine Bilirubin Negative (NEGATIVE) Urine Urobilinogen 0.2 (0.2) E.U./dL Ur Leukocyte Esterase 1+ H (NEGATIVE) Urine RBC >100/hpf H (0-5/HPF) Urine WBC 1-5/hpf (0-5/HPF) Urine Bacteria None seen (None) Ur Culture Indicated? Specimen cultured SARS-CoV-2 (PCR) (Negative) Blood Type Point of Care Testing Stool Occult Blood Positive Point of care testing: Point of Care Testing Stool Occult Blood Positive Imaging Data chest/abd/pelvis CT: Radiologist's Impression: Close Chest/Abdomen/Pelvis CT (Signed) Jerrell Lee - 02/14/22 Launch?Image [address] [address] [address] Scan Report Signed Patient: Zuhair Denson MR#: [id number] : 1935 Acct:[id number] Age/Sex: 86 / M Date of Service: 02/14/22 Loc: ED Accession Number: [id number] ?? Procedure: CT chest abd pel w con Ordering Provider: Gwendolyn Eller D.O. PROCEDURE:? CT CHEST ABD PEL W CON ? INDICATIONS:? hematuria, renal mass ? TECHNIQUE:? After the administration of intravenous contrast, 5 mm thick sections acquired from the lung apices to the symphysis.? 5 mm coronal and sagittal reformats were performed, with additional 7 mm MIP reformats through the lungs.? For radiation dose reduction, the following was used:? automated exposure control, adjustment of mA and/or kV according to patient size.? ? COMPARISON:? [facility], CT, CT ABDOMEN WWO PELVIS W, 01/26/2022, 10:40. ? FINDINGS:? Image quality:? Excellent.? ? CHEST:? Lungs and pleura:? No acute airspace opacities.? A few small clustered nodules are seen in the posterior right upper lobe measuring up to 3 mm in size, considered benign.? There is mild scarring in the medial right lower lobe adjacent to the thoracic spine.? No pleural effusions or pneumothorax.? Central and peripheral airways appear patent and normal in caliber.? ? Mediastinum:? Heart size is moderately enlarged.? No pericardial effusion.? Mild coronary artery calcifications.? No mediastinal or hilar adenopathy by size criteria.? Thoracic aorta and central pulmonary arteries are normal in size.? Moderate aortic atherosclerotic calcifications.? Esophagus is normal in caliber.? Small hiatal hernia.? ? Chest wall:? No axillary or supraclavicular adenopathy by size criteria.? Thyroid contains a 2 cm partially calcified nodule at the inferior right thyroid lobe.? ? ? ABDOMEN:? Solid organs:? Liver is normal in size and enhancement.? Gallbladder is unremarkable..? Biliary system is non dilated.? Pancreas enhances normally.? Spleen is normal in size and enhancement.? No adrenal nodules.? Kidneys demonstrate normal size and enhancement, without hydronephrosis.? An exophytic heterogeneously enhancing solid mass is seen at the superior pole of the left kidney measuring approximately 5.3 x 5.0 by 5.9 cm, highly suspicious for renal cell carcinoma.? No additional solid renal mass is seen.? A simple cyst is seen in the right kidney.? Possible nonobstructing calculus versus vascular calcification at the inferior pole of left kidney measuring up to 4 mm. ? Peritoneum and bowel:? Bowel loops demonstrate normal wall thickness and caliber.? No free fluid or air.? ? Nodes and vessels:? No retroperitoneal or mesenteric adenopathy by size criteria.? Mild fusiform dilation of the infrarenal abdominal aorta to 2.4 cm.? Severe aortic atherosclerotic calcifications. ? Miscellaneous:? Small fat containing periumbilical hernia. ? ? PELVIS:? Genitourinary:? Masslike lesion at the base of the bladder likely represents a massively enlarged prostate versus less likely a bladder mass.? Prostate measures approximately 7.2 x 6.7 x 8.6 cm. A Godinez catheter is seen decompressing the bladder.? The bladder contains air and hyperdense material which may represent contrast material or likely bl ood products in the setting of hematuria. ? Miscellaneous:? Small fat containing right inguinal hernia.? No bulky pelvic lymphadenopathy is seen. ? Bones:? No suspicious bony lesions.? No vertebral body compression fractures.? Sclerotic lesion in the right iliac bone is most likely a benign bone island.? Degenerative changes are seen in the included spine.? ? IMPRESSION:? 1. Bladder is decompressed by a Godinez catheter and contains air as well as hyperdense material that may represent thrombosed blood products.? Superimposed bladder infection is not excluded. ? 2. Massively enlarged prostate, which may be contributing to hematuria or traumatic catheter placement. ? 3. Left superior pole exophytic solid renal mass measuring up to 5.8 cm is highly suspicious for renal cell carcinoma.? No significant lymphadenopathy.? No invasion of the left renal vein is seen. ? 4. Nonspecific right inferior thyroid nodule.? Recommend outpatient thyroid ultrasound for further evaluation. ? 5. Moderate cardiomegaly.? Coronary artery and aortic atherosclerotic calcifications. ? ? ? Dictated by: Jerrell Lee M.D. on 02/14/2022 at 8:26 ? ? Approved by: Jerrell Lee M.D. on 02/14/2022 at 8:38?? [facility] Narrative Medical decision making narrative: Initially tried to flush the urinary catheter with this was unsuccessful. The 2 way catheter was removed and a 3 way catheter was placed. Quite a bit of clots returned. Have been proceeding with continuous bladder irrigation. Patient's INR is elevated today. This is probably contributing to his bleeding. No need for emergent reversal. 02/14/22: (Rafita): Patient seen and independently evaluated by myself. 86-year-old male with known renal mass suspicious for renal carcinoma, on Coumadin with an INR today of 4 likely contributing to his bleeding. Patient was irrigated with 11 L total continues to have clot return and Godinez catheter blocks off when not being actively irrigated or flushed and requires intermittent flushing by nursing even then. The urine itself appears fairly clear but there are small clots that continue to be expressed. Patient's hemoglobin appears stable at 3 hour opal from initial, his renal function has not changed. Repeat imaging was obtained as patient is having a new change was a known renal mass. Patient had the catheter placed and had UTI that admission on January 26 and was discharged home after receiving Rocephin, Omnicef with plan to follow-up with urology for catheter removal. Patient has not seen Urology yet. We do not have Urology available this weekend. We have continued to irrigate and patient requires manual flushing every 20-30 minutes and continues to block intermittently. Patient was given vitamin K, discussed with urology at [facility] recommended adding FFP which was also given. We began searching for bed as there is no [facility] beds available and [facility] did have availability I spoke with our local urologist as well as hospitalist Dr. Brenner who kindly accepts for transfer. Spoke with patient's family who is agreeable to transfer. Discharge Plan Departure Patient Disposition: [facility] Clinical Impression: Hematuria, Left kidney mass, Elevated INR, Complication, blocked Godinez catheter Prescriptions: No Action amlodipine 10 mg tablet 10 mg PO DAILY atorvastatin 80 mg tablet 80 mg PO DAILY furosemide 20 mg tablet 20 mg DAILY Label Comments: Take 1 tablet by mouth every morning benazepril 40 mg tablet 40 mg PO DAILY warfarin 5 mg tablet 5 mg DAILY tramadol 50 mg Tablet 50 mg PO QID PRN (Reason: Pain, Moderate (4-6)) Qty: 20 0RF famotidine [Pepcid AC] 20 mg Tablet 40 mg PO BEDTIME Qty: 60 0RF tamsulosin [Flomax] 0.4 mg Capsule 0.4 mg PO BEDTIME Qty: 60 0RF gabapentin 100 mg Capsule 100 mg PO TID Qty: 90 0RF finasteride 5 mg Tablet 5 mg PO BEDTIME Qty: 60 0RF Lactobac 2-Bifido 1-S. therm 112.5 billion cell capsule 1 cap PO BID Qty: 30 0RF Referrals: Pema Schreiber DO [Primary Care Provider] -
[2022-02-14 04:38] LABS: Add Manual Diff / Slide Review NO; Basophils Absolute Auto 100 /uL (0-100); Basophils Percent Auto 0.5 % (0-2); Eosinophils Absolute Auto 0 /uL (0-450); Eosinophils Percent Auto 0.2 % (2-4); Hematocrit 35.3 % (41-53); Hemoglobin 11.9 g/dL (13.5-17.5); Lymphocytes Absolute Auto 600 /uL (1100-4500); Mean Corpuscular HGB Conc 33.9 % (30-36); Mean Corpuscular Hemoglobin 30.5 PG (26-34); Mean Corpuscular Volume 89.9 fL (80-100); Monocytes Absolute Auto 900 /uL (0-900); Monocytes Percent Auto 7.4 % (3-14); Neutrophils Absolute Auto 10000 /uL (1500-7000); Neutrophils Percent Auto 86.9 % (50-75); Platelet Count 331 X10^3/uL (150-400); Red Blood Cell Count 3.92 X10^6/uL (4.5-5.9); Red Cell Distribution Width 13.5 % (11.6-14.8); White Blood Cell Count 11.5 X10^3/uL (4.5-11.0)
[2022-02-14 04:43] LABS: INR 4.2 (0.9-1.3); Prothrombin Time 48.9 SECONDS (10.1-12.7)
--- NOTE | 2022-02-14 04:54 | PC.NURSE ---
Addendum entered by Rock Dang R.N. 02/14/22 07:18: initial manual irrigation amount was 2500mL. Irrigation return was roughly 2800mL. Original Note: After roughly 60 minutes of manual bladder irrigation. Pt had roughly 200mL of just clots (strained from urinals) that had been irrigated from new indwelling 3-way 20g torrez catheter. Pt immediately placed on CBI. Staff frequently checking pt to ensure no further retention/pain present during CBI. Pt reports relief of pain at this time.
--- NOTE | 2022-02-14 05:49 | PC.NURSE ---
Second bag of 3L irrigation saline finished and had been empty for appx. 2 minutes before next bag spiked and infusion initiated. After infusion started, pt began having pain. Irrigation stopped and torrez irrigated through irrigation port on drainage tubing. Urine flow restarted and pt pain relieved. Pt urine still beth red with irrigation at highest flow rate.
--- NOTE | 2022-02-14 07:19 | PC.NURSE ---
Pt had episode of bladder pain. Pt had clots in torrez catheter that were flushed out. Color of urine drainage is pink, but now clots are visible which haven't been present for last hour.
--- NOTE | 2022-02-14 07:21 | DI.CT.S_ITS ---
PROCEDURE: CT CHEST ABD PEL W CON INDICATIONS: hematuria, renal mass TECHNIQUE: After the administration of intravenous contrast, 5 mm thick sections acquired from the lung apices to the symphysis. 5 mm coronal and sagittal reformats were performed, with additional 7 mm MIP reformats through the lungs. For radiation dose reduction, the following was used: automated exposure control, adjustment of mA and/or kV according to patient size. COMPARISON: [facility], CT, CT ABDOMEN O PELVIS W, 01/26/2022, 10:40. FINDINGS: Image quality: Excellent. CHEST: Lungs and pleura: No acute airspace opacities. A few small clustered nodules are seen in the posterior right upper lobe measuring up to 3 mm in size, considered benign. There is mild scarring in the medial right lower lobe adjacent to the thoracic spine. No pleural effusions or pneumothorax. Central and peripheral airways appear patent and normal in caliber. Mediastinum: Heart size is moderately enlarged. No pericardial effusion. Mild coronary artery calcifications. No mediastinal or hilar adenopathy by size criteria. Thoracic aorta and central pulmonary arteries are normal in size. Moderate aortic atherosclerotic calcifications. Esophagus is normal in caliber. Small hiatal hernia. Chest wall: No axillary or supraclavicular adenopathy by size criteria. Thyroid contains a 2 cm partially calcified nodule at the inferior right thyroid lobe. ABDOMEN: Solid organs: Liver is normal in size and enhancement. Gallbladder is unremarkable.. Biliary system is non dilated. Pancreas enhances normally. Spleen is normal in size and enhancement. No adrenal nodules. Kidneys demonstrate normal size and enhancement, without hydronephrosis. An exophytic heterogeneously enhancing solid mass is seen at the superior pole of the left kidney measuring approximately 5.3 x 5.0 by 5.9 cm, highly suspicious for renal cell carcinoma. No additional solid renal mass is seen. A simple cyst is seen in the right kidney. Possible nonobstructing calculus versus vascular calcification at the inferior pole of left kidney measuring up to 4 mm. Peritoneum and bowel: Bowel loops demonstrate normal wall thickness and caliber. No free fluid or air. Nodes and vessels: No retroperitoneal or mesenteric adenopathy by size criteria. Mild fusiform dilation of the infrarenal abdominal aorta to 2.4 cm. Severe aortic atherosclerotic calcifications. Miscellaneous: Small fat containing periumbilical hernia. PELVIS: Genitourinary: Masslike lesion at the base of the bladder likely represents a massively enlarged prostate versus less likely a bladder mass. Prostate measures approximately 7.2 x 6.7 x 8.6 cm. A Godinez catheter is seen decompressing the bladder. The bladder contains air and hyperdense material which may represent contrast material or likely blood products in the setting of hematuria. Miscellaneous: Small fat containing right inguinal hernia. No bulky pelvic lymphadenopathy is seen. Bones: No suspicious bony lesions. No vertebral body compression fractures. Sclerotic lesion in the right iliac bone is most likely a benign bone island. Degenerative changes are seen in the included spine. IMPRESSION: 1. Bladder is decompressed by a Godinez catheter and contains air as well as hyperdense material that may represent thrombosed blood products. Superimposed bladder infection is not excluded. 2. Massively enlarged prostate, which may be contributing to hematuria or traumatic catheter placement. 3. Left superior pole exophytic solid renal mass measuring up to 5.8 cm is highly suspicious for renal cell carcinoma. No significant lymphadenopathy. No invasion of the left renal vein is seen. 4. Nonspecific right inferior thyroid nodule. Recommend outpatient thyroid ultrasound for further evaluation. 5. Moderate cardiomegaly. Coronary artery and aortic atherosclerotic calcifications. Dictated by: Jerrell Lee M.D. on 02/14/2022 at 8:26 Approved by: Jerrell Lee M.D. on 02/14/2022 at 8:38
[2022-02-14 07:29] LABS: BUN Creatinine Ratio 22.3 (6-22); Blood Urea Nitrogen 23 mg/dL (9-20); Calcium 8.5 mg/dL (8.4-10.2); Carbon Dioxide 25 mmol/L (22-32); Chloride 104 mmol/L (98-107); Estimated Glomerular Filt Rate > 60 mL/min (>60); Glucose 206 mg/dL (80-110); HEMOLYSIS 30 (0-50); Potassium 3.8 mmol/L (3.4-5.1); Sodium 137 mmol/L (137-145)
[2022-02-14 07:48] LABS: Hematocrit 36.6 % (41-53); Hemoglobin 12.5 g/dL (13.5-17.5)
[2022-02-14] MEDS: PHYTONADIONE (VIT K1) 5 MG in SODIUM CHLORIDE 0.9% 100 ML 201 MG IV (08:39)
[2022-02-14] MEDS: SODIUM CHLORIDE 0.9% 1,000 ML 150 ML IV (08:39)
[2022-02-14 08:47] LABS: COVID19 -Nasal RAPID Negative (Negative)
[2022-02-14 09:02] LABS: Appearance Urine UA CLOUDY; Bilirubin Urine UA NEGATIVE (NEGATIVE); Color Urine UA RED; Glucose Urine UA NEGATIVE (Negative); Ketones Urine UA NEGATIVE (NEGATIVE); Leukocyte Esterase Urine UA 1+ (NEGATIVE); Nitrite Urine UA NEGATIVE (Negative); Occult Blood Urine UA 3+ (Negative); Protein Urine UA 2+ (Negative); Specific Gravity Urine UA 1.015 (1.000-1.035); Urobilinogen Urine UA 0.2 E.U./dL (0.2)
[2022-02-14 09:07] LABS: Bacteria Urine None Seen; Culture Indicated Urine Specimen Cultured; RBC Urine >100/HPF (0-5/HPF); WBC Urine 1-5/HPF (0-5/HPF)
[2022-02-14] MEDS: MORPHINE 4 MG/ML INJ IV (13:37)
--- NOTE | 2022-02-14 14:47 | TAR.TRANSNT ---
Bag would not scan for type of product or expiration date because it was FFP. Verified with ROMELIA Carrera.
--- NOTE | 2022-02-14 15:16 | PC.NURSE ---
1145: New CBI bag hung. This RN and RN Debi are intermittently flushing his catheter due to clotting. Torrez bag draining bright red fluid with clots noted. Clots also noted from the distal end of his penis. April-care provided. 1211: Pt reports pain in his lower abdomen. RN Debi flushed his catheter and more clots were noted in the tubing and coming out from his penis around the catheter. Pt bladder scanned to confirm irrigation fluid not being retained. 199 mls shown on bladder scan. Torrez bag continues to drain. Intermittent flushing continues by this RN. 1245: Pt has small, loose BM. Blood-tinged stool noted. Guaiac positive. Torrez patent and draining, output continues to be bright red with clots noted. 1350: Minimal clots noticed. Torrez draining light pink to clear output. New bag of CBI hung and torrez bag drained prior to discharge at 1400. Medics provided with supplies in case torrez catheter need to be flushed or irrigation bag changed.
== END 2022-02-14 14:00 | disposition short-term general hospital (02) ==
PROVIDERS: Emergency Medicine; Emergency Provider Emergency Medicine; PCP Family Medicine
DX: T83.091A Other mechanical complication of indwelling urethral catheter, initial encounter (principal); R31.9 Hematuria, unspecified; N40.0 Benign prostatic hyperplasia without lower urinary tract symptoms; N28.89 Other specified disorders of kidney and ureter; R79.1 Abnormal coagulation profile; R10.30 Lower abdominal pain, unspecified; Z20.822 Contact with and (suspected) exposure to COVID-19
CPT/HCPCS: 36415; 36430; 51798; 71260; 74177; 80048; 81001; 82272; 85014; 85018; 85025; 85610; 86900; 86901; 86927; 87086; 87635; 96361; 96374; 99285; 99291; 99292; C9803; P9016; J2270; J3430; Q9967

== ENCOUNTER → 2022-08-14 14:47 | Outpatient (CLI) | payer MEDICARE, SELFPAY ==
[2022-01-26 11:29] VITALS: BMI 25.2
--- NOTE | 2022-08-14 14:48 | DI.US.S_ITS ---
PROCEDURE: US RENAL COMPLETE INDICATIONS: left renal mass TECHNIQUE: Real-time scanning was performed of the kidneys and bladder, with image documentation. COMPARISON: [facility], CT, CT ABDOMEN WWO PELVIS W, 01/26/2022, 10:40. FINDINGS: Kidneys: There is a 6.1 x 5.6 x 5.0 cm solid mass lesion involving the upper pole of the patient's left kidney. Imaging findings are strongly suggestive of a renal cell carcinoma. Right kidney appears within normal limits measuring 10.8 cm in maximal dimension with some benign-appearing small cyst. Bladder: There is enlarged prostate gland measuring 6.9 cm in maximal dimension extending into the bladder base. Miscellaneous: No free pelvic fluid. IMPRESSION: 1. 6.1 cm mass lesion upper pole left kidney. Imaging findings are strongly suggestive of a renal cell carcinoma. This appears to have slightly increased in size from measurements from CT scan of 01/26/2022 where it measured 5.6 cm maximally. 2. Right renal cyst. 3. Enlarged prostate gland measuring 6.9 cm in maximal dimension extending into the bladder base. Dictated by: Mateo Squires M.D. on 08/14/2022 at 16:32 Approved by: Mateo Squires M.D. on 08/14/2022 at 16:38
== END ==
PROVIDERS: PCP Nurse Practitioner Family; Referring Provider Specialist; Visit Provider Specialist
DX: N28.89 Other specified disorders of kidney and ureter (principal); N40.0 Benign prostatic hyperplasia without lower urinary tract symptoms; N28.1 Cyst of kidney, acquired
CPT/HCPCS: 76770

== ENCOUNTER → 2023-02-03 11:24 | Outpatient (CLI) | payer MEDICARE, SELFPAY ==
[2022-01-26 11:29] VITALS: BMI 25.2
--- NOTE | 2023-02-03 11:26 | DI.US.S_ITS ---
PROCEDURE: US RENAL COMPLETE INDICATIONS: LEFT RENAL MASS TECHNIQUE: Real-time scanning was performed of the kidneys and bladder, with image documentation. COMPARISON: [facility], , RENAL COMPLETE, 08/14/2022, 15:02. FINDINGS: Kidneys: Kidneys are normal in size. Right kidney measures 9.6 cm long; left kidney measures 11.4 cm long. Right renal cortical thickness is 1.2 cm; left renal cortical thickness is 1.7 cm. No hydronephrosis. There is a 3.0 cm right renal cyst. There is a solid 6.9 x 5.5 x 6.9 cm upper pole left renal mass. This measured 6.1 x 5.0 x 5.6 cm on the comparison ultrasound dated August 14, 2022. Bladder: Pre-void bladder volume is 10.7 mL. The patient was unable to void. Miscellaneous: No free pelvic fluid. IMPRESSION: 1. Increased size of the left renal mass suspicious for neoplasm. Dictated by: Judie Weston M.D. on 02/03/2023 at 17:09 Approved by: Judie Weston M.D. on 02/03/2023 at 17:12
== END ==
PROVIDERS: PCP Nurse Practitioner Family; Referring Provider Specialist; Visit Provider Specialist
DX: N28.89 Other specified disorders of kidney and ureter (principal)
CPT/HCPCS: 76770

== ENCOUNTER 2023-08-06 13:24 | Inpatient (IN) | payer MEDICARE, SELFPAY ==
[2022-01-26 11:29] VITALS: BMI 25.2
[2023-08-06] VITALS (30 sets, daily range): BP systolic 129–162; BP diastolic 61–79; PULSE 59–97; RESP 17–54; TEMP 36.8; O2SAT 86–96; BMI 23.7
--- NOTE | 2023-08-06 13:35 | DI.RAD.S_ITS ---
PROCEDURE: XR CHEST 1V INDICATIONS: Shortness of breath TECHNIQUE: One view of the chest was acquired. COMPARISON: [facility], CR, XR CHEST 1V, 01/26/2022, 9:11. FINDINGS: Surgical changes and devices: None. Lungs and pleura: Lungs are abnormal and there has been a progression of diffuse interstitial lung disease with reference to a prior spine plain film from 01/26/22. No pleural effusions or pneumothorax. Mediastinum: Mediastinal contours appear normal. Heart size is normal. Bones and chest wall: No suspicious bony lesions. Overlying soft tissues appear unremarkable. IMPRESSION: Generalized interstitial and alveolar prominence through the lungs bilaterally, more prominent than seen 01/26/22. Account Installation Specialist consultation may be warranted. Cardiomegaly and acute CHF are not suspected at this time. Dictated by: Sharad Webb M.D. on 08/06/2023 at 13:57 Approved by: Sharad Webb M.D. on 08/06/2023 at 13:59
--- NOTE | 2023-08-06 13:50 | PC.NURSE ---
Pt brought to emergency dept today by and daughter. states that he has been having increasing SOB for several days. Pt is able to answer questions in full sentences but audibly wheezing upon inspiration and expiration and upon getting up from wheelchair. pt a&ox4. Denies cp. Daughter and at bedside. Skin is pink, warm and dry.
[2023-08-06 13:59] LABS: Add Manual Diff / Slide Review NO; Basophils Absolute Auto 0 /uL (0-100); Basophils Percent Auto 0.3 % (0-2); Eosinophils Absolute Auto 0 /uL (0-450); Eosinophils Percent Auto 0.1 % (2-4); Hematocrit 37.1 % (41-53); Hemoglobin 12.7 g/dL (13.5-17.5); Lymphocytes Absolute Auto 800 /uL (1100-4500); Lymphocytes Percent Auto 5.9 % (25-40); Mean Corpuscular HGB Conc 34.2 % (30-36); Mean Corpuscular Hemoglobin 30.7 PG (26-34); Mean Corpuscular Volume 89.9 fL (80-100); Monocytes Absolute Auto 1300 /uL (0-900); Monocytes Percent Auto 9.4 % (3-14); Neutrophils Absolute Auto 11200 /uL (1500-7000); Neutrophils Percent Auto 84.3 % (50-75); Platelet Count 264 X10^3/uL (150-400); Red Blood Cell Count 4.12 X10^6/uL (4.5-5.9); Red Cell Distribution Width 13.7 % (11.6-14.8); White Blood Cell Count 13.3 X10^3/uL (4.5-11.0)
[2023-08-06 14:00] LABS: Prothrombin Time 23.5 SECONDS (9.4-12.5)
[2023-08-06 14:04] LABS: Albumin Globulin Ratio 1.2 (1.0-2.8); Alkaline Phosphatase 123 U/L (38-126); Aspartate Aminotransferase 45 IU/L (17-59); BUN Creatinine Ratio 26.3 (6-22); Bilirubin Total 1.2 mg/dL (0.2-1.3); Blood Urea Nitrogen 21 mg/dL (9-20); Calcium 9.4 mg/dL (8.4-10.2); Carbon Dioxide 23 mmol/L (22-32); Chloride 102 mmol/L (98-107); Estimated Glomerular Filt Rate > 60 mL/min (>60); Globulin 3.4 g/dL (1.7-4.1); Glucose 404 mg/dL (80-110); HEMOLYSIS < 15 (0-50); Potassium 3.6 mmol/L (3.4-5.1); Sodium 138 mmol/L (137-145); Total Protein 7.4 g/dL (6.3-8.2)
--- NOTE | 2023-08-06 14:04 | ED_ITS ---
HPI - General Adult <Mateo Guaman DO - Last Filed: 08/07/23 07:03> General Chief complaint: Shortness of Breath/Dyspnea Stated complaint: SOB Time Seen by Provider: 08/06/23 13:52 Source: patient and family Mode of arrival: Wheelchair History of Present Illness HPI narrative: Patient is an 87-year-old male. History of high blood pressure. AFib. Is on Coumadin. No history of coronary artery disease. No history of CHF. Is here for evaluation of approximately 4 days of worsening dyspnea on exertion and orthopnea. No cough. No fevers. Patient has no complaints although his family states that he gets very short of breath with any sort of exertion. No lower extremity swelling. He denies chest pain, sore throat, sinus congestion. The according to the patient's approximately 2 weeks ago his primary doctor took him off of his Lasix. states that she thought that he was on the Lasix because he was having swelling in his legs not because of a diagnosis of CHF. They thought that he did not needed anymore because his legs were no longer swollen. He has been taking the rest of his medications as directed. Related Data Home Medications Medication Instructions Recorded Confirmed amlodipine 10 mg tablet 10 mg PO DAILY 01/26/22 08/06/23 atorvastatin 80 mg tablet 80 mg PO BEDTIME 01/26/22 08/06/23 benazepril 40 mg tablet 40 mg PO DAILY 01/26/22 08/06/23 warfarin 5 mg tablet 5 mg BEDTIME 01/26/22 08/06/23 finasteride 5 mg tablet 5 mg PO BEDTIME 08/06/23 08/06/23 Previous Rx's Medication Instructions Recorded tamsulosin 0.4 mg capsule (Flomax) 0.4 mg PO BEDTIME #60 caps 01/28/22 Allergies Allergy/AdvReac Type Severity Reaction Status Date / Time Penicillins Allergy Mild Hives Verified 08/06/23 21:02 Review of Systems <DO Chasidy Interiano Last Filed: 08/07/23 07:03> Cardiovascular Cardiovascular: Reports system reviewed and no additional complaints, except as documented Respiratory Respiratory: Reports system reviewed and no additional complaints, except as documented Gastrointestinal Gastrointestinal: Reports system reviewed and no additional complaints, except as documented Integumentary/Breasts Skin/Breast: Reports system reviewed and no additional complaints, except as documented Neurologic Neurologic: Reports system reviewed and no additional complaints, except as documented Hematologic/Lymphatic On Anticoagulants: Yes Patient History <DO Chasidy Interiano Last Filed: 08/07/23 07:03> Medical History BPH NOS w/o ur obs/LUTS History of arthritis Hx of diabetes mellitus Coronary disease Heart murmur Gout BPH (benign prostatic hyperplasia) Chronic atrial fibrillation Hypertension Surgical History Hx of cystoscopy Hx of transurethral resection of prostate Family History Mother Diabetes mellitus Social History marital status: number of children: 3 household members: spouse Smoking Status: Never smoker alcohol intake: never caffeine: No Type(s) of exercise: none Smoking Status: Never smoker alcohol intake frequency: holidays/special occasions only Substance Use Type: does not use Exam <DO Chasidy Interiano Last Filed: 08/07/23 07:03> Initial Vital Signs Initial Vital Signs: Vital Signs Temperature 98.3 F 08/06/23 13:31 Pulse Rate 80 08/06/23 13:31 Respiratory Rate 24 08/06/23 13:31 Blood Pressure 148/74 H 08/06/23 13:31 Pulse Oximetry 91 08/06/23 13:31 Oxygen Delivery Method Room Air 08/06/23 13:31 Const General: No ill appearing HENMT Head: normal to inspection and normocephalic Resp Effort & Inspection: no cough, not labored, no retractions and tachypneic Auscultation: clear to auscultation bilaterally Cardio Rate: regular rate Rhythm: abnormal rhythm GI Inspection: non-distended Skin General: no rashes or lesions noted Neuro General: patient alert, patient awake and moves all extremities Speech: speech normal Extrem General: No edema <Gwendolyn Eller DO - Last Filed: 08/07/23 00:34> Initial Vital Signs Initial Vital Signs: Vital Signs Temperature 98.3 F 08/06/23 13:31 Pulse Rate 80 08/06/23 13:31 Respiratory Rate 24 08/06/23 13:31 Blood Pressure 148/74 H 08/06/23 13:31 Pulse Oximetry 91 08/06/23 13:31 Oxygen Delivery Method Room Air 08/06/23 13:31 Course <Mateo Guaman DO - Last Filed: 08/07/23 07:03> Orders Ordered: Acetaminophen (Acetaminophen 325 Mg Tablet) 650 mg PO Q6H PRN PRN Reason: Fever/Mild Pain (1-3) Hydrocodone Bitart/Acetaminophen (Hydrocodone/Acet 5/325 Tablet) 1 tab PO Q4H PRN PRN Reason: Pain, Moderate (4-6) Albuterol/Ipratropium (Albuterol/Ipratropium 3 Ml Ampul) 3 ml INH RTQ4HR PRN PRN Reason: Shortness Of Breath Last Admin: 08/07/23 03:27 Dose: 3 ml Documented By: WS Atorvastatin Calcium (Atorvastatin 20 Mg Tablet) 80 mg PO BEDTIME PINEDA Finasteride (Finasteride 5 Mg Tablet) 5 mg PO BEDTIME PINEDA Furosemide (Furosemide 40 Mg/4 Ml Vial) 40 mg IV DAILY PINEDA Lisinopril (Lisinopril 20 Mg Tablet) 40 mg PO DAILY PINEDA Morphine Sulfate (Morphine 4 Mg/Ml Inj) 2 mg IV Q4HR PRN PRN Reason: Pain, Severe (7-10) Naloxone HCl (Naloxone 0.4 Mg/Ml Vial) 0.2 mg IV Q2MIN PRN PRN Reason: Opiate Reversal Ondansetron HCl (Ondansetron 4 Mg/2 Ml Inj) 4 mg IV Q8HR PRN PRN Reason: Nausea And Vomiting Pantoprazole Sodium (Pantoprazole Dr 20 Mg Tablet) 20 mg PO 0600 PINEDA Last Admin: 08/07/23 06:24 Dose: 20 mg Documented By: AT Tamsulosin HCl (Tamsulosin 0.4 Mg Capsule) 0.4 mg PO BEDTIME PINEDA Warfarin Sodium (Warfarin 5 Mg Tablet) 5 mg PO BEDTIME PINEDA Discontinued Medications Albuterol/Ipratropium (Albuterol/Ipratropium 3 Ml Ampul) 3 ml INH NOW ONE Stop: 08/06/23 17:05 Last Admin: 08/06/23 17:07 Dose: 3 ml Documented By: DM Sodium Chloride (Normal Saline 0.9%) 1,000 mls @ 500 mls/hr IV BOLUS ONE Stop: 08/06/23 16:10 Last Infusion: 12/01/23 17:10 Dose: Infused Documented By: Admin: 08/06/23 14:41 Dose: 500 mls/hr Documented By: [place] Ceftriaxone Sodium 1,000 mg/ (Sodium Chloride) 100 mls @ 200 mls/hr IV NOW ONE Stop: 08/06/23 14:13 Last Infusion: 08/06/23 15:31 Dose: Infused Documented By: Admin: 08/06/23 14:37 Dose: 200 mls/hr Documented By: [place] Furosemide 60 mg/ Sodium (Chloride) 56 mls @ 112 mls/hr IV NOW ONE Stop: 08/06/23 14:44 Last Infusion: 08/06/23 15:51 Dose: Infused Documented By: Admin: 08/06/23 14:56 Dose: 112 mls/hr Documented By: SUSAN Furosemide 60 mg/ Sodium (Chloride) 56 mls @ 112 mls/hr IV NOW ONE Stop: 08/07/23 03:14 Last Admin: 08/07/23 03:30 Dose: 112 mls/hr Documented By: AT Vital Signs Vital signs: Vital Signs - 8 hr 08/06/23 16:45 08/06/23 17:00 08/06/23 17:00 Pulse Rate 79 97 H Respiratory Rate 40 H 54 H Blood Pressure 154/79 H Pulse Oximetry 87 L 86 L 96 Oxygen Delivery Method Room Air Nasal Cannula Oxygen Flow Rate 2 08/06/23 17:07 08/06/23 17:15 08/06/23 17:30 Pulse Rate 79 79 77 Respiratory Rate 22 41 H 30 H Blood Pressure Pulse Oximetry 95 96 93 Oxygen Delivery Method Nasal Cannula Nasal Cannula Oxygen Flow Rate 2 2 08/06/23 17:30 08/06/23 17:45 08/06/23 18:00 Pulse Rate 81 61 Respiratory Rate 36 H Blood Pressure 154/70 H Pulse Oximetry 94 94 Oxygen Delivery Method Oxygen Flow Rate 08/06/23 18:01 08/06/23 18:01 08/06/23 18:15 Pulse Rate 78 59 L Respiratory Rate 41 H 26 H Blood Pressure 137/61 Pulse Oximetry 94 93 Oxygen Delivery Method Nasal Cannula Oxygen Flow Rate 2 08/06/23 19:00 08/06/23 19:00 08/06/23 19:15 Pulse Rate 71 70 Respiratory Rate 30 H 30 H Blood Pressure 137/70 Pulse Oximetry 93 92 Oxygen Delivery Method Nasal Cannula Oxygen Flow Rate 2 08/06/23 19:30 08/06/23 19:33 08/06/23 19:33 Pulse Rate 65 64 Respiratory Rate 34 H 45 H Blood Pressure 134/65 Pulse Oximetry 93 93 Oxygen Delivery Method Oxygen Flow Rate 08/06/23 19:45 Pulse Rate 62 Respiratory Rate 29 H Blood Pressure Pulse Oximetry 94 Oxygen Delivery Method Oxygen Flow Rate <Gwendolyn Eller, - Last Filed: 08/07/23 00:34> Orders Ordered: Acetaminophen (Acetaminophen 325 Mg Tablet) 650 mg PO Q6H PRN PRN Reason: Fever/Mild Pain (1-3) Hydrocodone Bitart/Acetaminophen (Hydrocodone/Acet 5/325 Tablet) 1 tab PO Q4H PRN PRN Reason: Pain, Moderate (4-6) Albuterol/Ipratropium (Albuterol/Ipratropium 3 Ml Ampul) 3 ml INH RTQ4HR PRN PRN Reason: Shortness Of Breath Last Admin: 08/07/23 03:27 Dose: 3 ml Documented By: WS Atorvastatin Calcium (Atorvastatin 20 Mg Tablet) 80 mg PO BEDTIME PINEDA Finasteride (Finasteride 5 Mg Tablet) 5 mg PO BEDTIME PINEDA Furosemide (Furosemide 40 Mg/4 Ml Vial) 40 mg IV DAILY PINEDA Lisinopril (Lisinopril 20 Mg Tablet) 40 mg PO DAILY PINEDA Morphine Sulfate (Morphine 4 Mg/Ml Inj) 2 mg IV Q4HR PRN PRN Reason: Pain, Severe (7-10) Naloxone HCl (Naloxone 0.4 Mg/Ml Vial) 0.2 mg IV Q2MIN PRN PRN Reason: Opiate Reversal Ondansetron HCl (Ondansetron 4 Mg/2 Ml Inj) 4 mg IV Q8HR PRN PRN Reason: Nausea And Vomiting Pantoprazole Sodium (Pantoprazole Dr 20 Mg Tablet) 20 mg PO 0600 PINEDA Last Admin: 08/07/23 06:24 Dose: 20 mg Documented By: AT Tamsulosin HCl (Tamsulosin 0.4 Mg Capsule) 0.4 mg PO BEDTIME PINEDA Warfarin Sodium (Warfarin 5 Mg Tablet) 5 mg PO BEDTIME PINEDA Discontinued Medications Albuterol/Ipratropium (Albuterol/Ipratropium 3 Ml Ampul) 3 ml INH NOW ONE Stop: 08/06/23 17:05 Last Admin: 08/06/23 17:07 Dose: 3 ml Documented By: DM Sodium Chloride (Normal Saline 0.9%) 1,000 mls @ 500 mls/hr IV BOLUS ONE Stop: 08/06/23 16:10 Last Infusion: 08/06/23 17:10 Dose: Infused Documented By: Admin: 08/06/23 14:41 Dose: 500 mls/hr Documented By: W[place] Ceftriaxone Sodium 1,000 mg/ (Sodium Chloride) 100 mls @ 200 mls/hr IV NOW ONE Stop: 08/06/23 14:13 Last Infusion: 08/06/23 15:31 Dose: Infused Documented By: Admin: 08/06/23 14:37 Dose: 200 mls/hr Documented By: W[place] Furosemide 60 mg/ Sodium (Chloride) 56 mls @ 112 mls/hr IV NOW ONE Stop: 08/06/23 14:44 Last Infusion: 08/06/23 15:51 Dose: Infused Documented By: Admin: 08/06/23 14:56 Dose: 112 mls/hr Documented By: SUSAN Furosemide 60 mg/ Sodium (Chloride) 56 mls @ 112 mls/hr IV NOW ONE Stop: 08/07/23 03:14 Last Admin: 08/07/23 03:30 Dose: 112 mls/hr Documented By: AT Vital Signs Vital signs: Vital Signs - 8 hr 08/06/23 16:45 08/06/23 17:00 08/06/23 17:00 Pulse Rate 79 97 H Respiratory Rate 40 H 54 H Blood Pressure 154/79 H Pulse Oximetry 87 L 86 L 96 Oxygen Delivery Method Room Air Nasal Cannula Oxygen Flow Rate 2 08/06/23 17:07 08/06/23 17:15 08/06/23 17:30 Pulse Rate 79 79 77 Respiratory Rate 22 41 H 30 H Blood Pressure Pulse Oximetry 95 96 93 Oxygen Delivery Method Nasal Cannula Nasal Cannula Oxygen Flow Rate 2 2 08/06/23 17:30 08/06/23 17:45 08/06/23 18:00 Pulse Rate 81 61 Respiratory Rate 36 H Blood Pressure 154/70 H Pulse Oximetry 94 94 Oxygen Delivery Method Oxygen Flow Rate 08/06/23 18:01 08/06/23 18:01 08/06/23 18:15 Pulse Rate 78 59 L Respiratory Rate 41 H 26 H Blood Pressure 137/61 Pulse Oximetry 94 93 Oxygen Delivery Method Nasal Cannula Oxygen Flow Rate 2 08/06/23 19:00 08/06/23 19:00 08/06/23 19:15 Pulse Rate 71 70 Respiratory Rate 30 H 30 H Blood Pressure 137/70 Pulse Oximetry 93 92 Oxygen Delivery Method Nasal Cannula Oxygen Flow Rate 2 08/06/23 19:30 08/06/23 19:33 08/06/23 19:33 Pulse Rate 65 64 Respiratory Rate 34 H 45 H Blood Pressure 134/65 Pulse Oximetry 93 93 Oxygen Delivery Method Oxygen Flow Rate 08/06/23 19:45 Pulse Rate 62 Respiratory Rate 29 H Blood Pressure Pulse Oximetry 94 Oxygen Delivery Method Oxygen Flow Rate Medical Decision Making <Mateo Guaman DO - Last Filed: 08/07/23 07:03> Lab Data Lab results reviewed: Yes I reviewed the patient's lab results. 08/07/23 04:18 08/07/23 04:18 Labs: Lab Results 08/06/23 08/06/23 08/06/23 Range/Units 13:43 14:12 15:45 WBC 13.3 H (4.5-11.0) X10^3/uL RBC 4.12 L (4.5-5.9) X10^6/uL Hgb 12.7 L (13.5-17.5) g/dL Hct 37.1 L (41-53) % MCV 89.9 (80-100) fL MCH 30.7 (26-34) PG MCHC 34.2 (30-36) % RDW 13.7 (11.6-14.8) % Plt Count 264 (150-400) X10^3/uL Neut % (Auto) 84.3 H (50-75) % Lymph % (Auto) 5.9 L (25-40) % [place] % (Auto) 9.4 (3-14) % Eos % (Auto) 0.1 L (2-4) % Baso % (Auto) 0.3 (0-2) % Neut # (Auto) 09572 H (5786-9076) /uL Lymph # (Auto) 800 L (6719-8707) /uL [place] # (Auto) 1300 H (0-900) /uL Eos # (Auto) 0 (0-450) /uL Baso # (Auto) 0 (0-100) /uL PT 23.5 H (9.4-12.5) SECONDS INR 2.0 H (0.9-1.3) Sodium 138 (137-145) mmol/L Potassium 3.6 (3.4-5.1) mmol/L Chloride 102 (98-107) mmol/L Carbon Dioxide 23 (22-32) mmol/L BUN 21 H (9-20) mg/dL Creatinine 0.80 (0.66-1.25) mg/dL Estimated GFR > 60 (>60) mL/min BUN/Creatinine Ratio 26.3 H (6-22) Glucose 404 H (80-110) mg/dL Lactate 4.7 H* 3.2 H (0.7-2.1) mmol/L Calcium 9.4 (8.4-10.2) mg/dL Magnesium (1.6-2.3) mg/dL Total Bilirubin 1.2 (0.2-1.3) mg/dL AST 45 (17-59) IU/L ALT 45 (<50) IU/L Alkaline Phosphatase 123 (38-126) U/L Total Creatine Kinase 283 H (55-170) U/L Troponin I 1.530 H* 1.560 H* (0.01-0.034) ng/mL NT-Pro-B Natriuret Pep 90789 H (<450) pg/mL Total Protein 7.4 (6.3-8.2) g/dL Albumin 4.0 (3.5-5.0) g/dL Globulin 3.4 (1.7-4.1) g/dL Albumin/Globulin Ratio 1.2 (1.0-2.8) Procalcitonin 0.11 (<0.5) ng/mL Chlamy pneumoniae PCR Not detected (Not Detect) Adenovirus (PCR) Not detected (Not Detect) B.parapertussis DNA PCR Not detected (Not Detecte) Coronavirus OC43 (PCR) Not detected (Not Detect) Coronavirus HKU1 (PCR) Not detected (Not Detect) Coronavirus 229E (PCR) Not detected (Not Detect) SARS-CoV-2 (PCR) Not detected (Not Detecte) Coronavirus NL63 (PCR) Not detected (Not Detect) Human Metapneumovir PCR Not detected (Not Detect) Influenza Type A (PCR) Not detected (Not Detect) Influenza Type B (PCR) Not detected (Not Detect) M. pneumoniae (PCR) Not detected (Not Detect) Parainfluenza 1 (PCR) Not detected (Not Detect) Parainfluenza 2 (PCR) Not detected (Not Detect) Parainfluenza 3 (PCR) Not detected (Not Detect) Parainfluenza 4 (PCR) Not detected (Not Detect) RSV (PCR) Not detected (Not Detect) Entero/Rhino (PCR) Not detected (Not Detect) 08/06/23 Range/Units 19:15 WBC (4.5-11.0) X10^3/uL RBC (4.5-5.9) X10^6/uL Hgb (13.5-17.5) g/dL Hct (41-53) % MCV (80-100) fL MCH (26-34) PG MCHC (30-36) % RDW (11.6-14.8) % Plt Count (150-400) X10^3/uL Neut % (Auto) (50-75) % Lymph % (Auto) (25-40) % [place] % (Auto) (3-14) % Eos % (Auto) (2-4) % Baso % (Auto) (0-2) % Neut # (Auto) (8693-1940) /uL Lymph # (Auto) (8882-6271) /uL [place] # (Auto) (0-900) /uL Eos # (Auto) (0-450) /uL Baso # (Auto) (0-100) /uL PT (9.4-12.5) SECONDS INR (0.9-1.3) Sodium (137-145) mmol/L Potassium (3.4-5.1) mmol/L Chloride (98-107) mmol/L Carbon Dioxide (22-32) mmol/L BUN (9-20) mg/dL Creatinine (0.66-1.25) mg/dL Estimated GFR (>60) mL/min BUN/Creatinine Ratio (6-22) Glucose (80-110) mg/dL Lactate (0.7-2.1) mmol/L Calcium (8.4-10.2) mg/dL Magnesium 1.6 (1.6-2.3) mg/dL Total Bilirubin (0.2-1.3) mg/dL AST (17-59) IU/L ALT (<50) IU/L Alkaline Phosphatase (38-126) U/L Total Creatine Kinase 270 H (55-170) U/L Troponin I 1.550 H* (0.01-0.034) ng/mL NT-Pro-B Natriuret Pep (<450) pg/mL Total Protein (6.3-8.2) g/dL Albumin (3.5-5.0) g/dL Globulin (1.7-4.1) g/dL Albumin/Globulin Ratio (1.0-2.8) Procalcitonin (<0.5) ng/mL Chlamy pneumoniae PCR (Not Detect) Adenovirus (PCR) (Not Detect) B.parapertussis DNA PCR (Not Detecte) Coronavirus OC43 (PCR) (Not Detect) Coronavirus HKU1 (PCR) (Not Detect) Coronavirus 229E (PCR) (Not Detect) SARS-CoV-2 (PCR) (Not Detecte) Coronavirus NL63 (PCR) (Not Detect) Human Metapneumovir PCR (Not Detect) Influenza Type A (PCR) (Not Detect) Influenza Type B (PCR) (Not Detect) M. pneumoniae (PCR) (Not Detect) Parainfluenza 1 (PCR) (Not Detect) Parainfluenza 2 (PCR) (Not Detect) Parainfluenza 3 (PCR) (Not Detect) Parainfluenza 4 (PCR) (Not Detect) RSV (PCR) (Not Detect) Entero/Rhino (PCR) (Not Detect) Imaging Data Chest x-ray: Radiologist's Impression: PROCEDURE: XR CHEST 1V INDICATIONS: Shortness of breath TECHNIQUE: One view of the chest was acquired. COMPARISON: [facility], , XR CHEST 1V, 01/26/2022, 9:11. FINDINGS: Surgical changes and devices: None. Lungs and pleura: Lungs are abnormal and there has been a progression of diffuse interstitial lung disease with reference to a prior spine plain film from 01/26/22. No pleural effusions or pneumothorax. Mediastinum: Mediastinal contours appear normal. Heart size is normal. Bones and chest wall: No suspicious bony lesions. Overlying soft tissues appear unremarkable. IMPRESSION: Generalized interstitial and alveolar prominence through the lungs bilaterally, more prominent than seen 01/26/22. [employer] consultation may be warranted. Cardiomegaly and acute CHF are not suspected at this time. ECG Data Attestation: I personally reviewed and interpreted this ECG as follows: Interpretation: Atrial fibrillation Ventricular rate is 70 Left axis deviation LVH QRS 1-[address] T wave changes MDM Narrative Medical decision making narrative: Patient has no specific complaints however his family states he has been short of breath specifically on exertion and with lying down for the past 4 days. He has been on furosemide in the past but his primary doctor took him off of it proximally 2 weeks ago. He is no chest pain. Is on anticoagulation for AFib. His rate controlled AFib. Troponin is elevated but is unchanged with repeat. BNP significantly elevated. Was given Lasix. His diuresed. Oxygen saturations have been in the upper 80s on room air. He is now requiring oxygen by nasal cannula. He was given antibiotics upon arrival given his presentation, leukocytosis however I have a higher suspicion that this is not an infectious etiology and more fluid overload. Care turned over to Dr. Eller to follow-up with Cardiology with anticipated admission to the hospital. <Gwendolyn Eller, DO - Last Filed: 08/07/23 00:34> Lab Data Labs: Lab Results 08/06/23 08/06/23 08/06/23 Range/Units 13:43 14:12 15:45 WBC 13.3 H (4.5-11.0) X10^3/uL RBC 4.12 L (4.5-5.9) X10^6/uL Hgb 12.7 L (13.5-17.5) g/dL Hct 37.1 L (41-53) % MCV 89.9 (80-100) fL MCH 30.7 (26-34) PG MCHC 34.2 (30-36) % RDW 13.7 (11.6-14.8) % Plt Count 264 (150-400) X10^3/uL Neut % (Auto) 84.3 H (50-75) % Lymph % (Auto) 5.9 L (25-40) % [place] % (Auto) 9.4 (3-14) % Eos % (Auto) 0.1 L (2-4) % Baso % (Auto) 0.3 (0-2) % Neut # (Auto) 67346 H (0022-5055) /uL Lymph # (Auto) 800 L (1257-6286) /uL [place] # (Auto) 1300 H (0-900) /uL Eos # (Auto) 0 (0-450) /uL Baso # (Auto) 0 (0-100) /uL PT 23.5 H (9.4-12.5) SECONDS INR 2.0 H (0.9-1.3) Sodium 138 (137-145) mmol/L Potassium 3.6 (3.4-5.1) mmol/L Chloride 102 (98-107) mmol/L Carbon Dioxide 23 (22-32) mmol/L BUN 21 H (9-20) mg/dL Creatinine 0.80 (0.66-1.25) mg/dL Estimated GFR > 60 (>60) mL/min BUN/Creatinine Ratio 26.3 H (6-22) Glucose 404 H (80-110) mg/dL Lactate 4.7 H* 3.2 H (0.7-2.1) mmol/L Calcium 9.4 (8.4-10.2) mg/dL Magnesium (1.6-2.3) mg/dL Total Bilirubin 1.2 (0.2-1.3) mg/dL AST 45 (17-59) IU/L ALT 45 (<50) IU/L Alkaline Phosphatase 123 (38-126) U/L Total Creatine Kinase 283 H (55-170) U/L Troponin I 1.530 H* 1.560 H* (0.01-0.034) ng/mL NT-Pro-B Natriuret Pep 05739 H (<450) pg/mL Total Protein 7.4 (6.3-8.2) g/dL Albumin 4.0 (3.5-5.0) g/dL Globulin 3.4 (1.7-4.1) g/dL Albumin/Globulin Ratio 1.2 (1.0-2.8) Procalcitonin 0.11 (<0.5) ng/mL Chlamy pneumoniae PCR Not detected (Not Detect) Adenovirus (PCR) Not detected (Not Detect) B.parapertussis DNA PCR Not detected (Not Detecte) Coronavirus OC43 (PCR) Not detected (Not Detect) Coronavirus HKU1 (PCR) Not detected (Not Detect) Coronavirus 229E (PCR) Not detected (Not Detect) SARS-CoV-2 (PCR) Not detected (Not Detecte) Coronavirus NL63 (PCR) Not detected (Not Detect) Human Metapneumovir PCR Not detected (Not Detect) Influenza Type A (PCR) Not detected (Not Detect) Influenza Type B (PCR) Not detected (Not Detect) M. pneumoniae (PCR) Not detected (Not Detect) Parainfluenza 1 (PCR) Not detected (Not Detect) Parainfluenza 2 (PCR) Not detected (Not Detect) Parainfluenza 3 (PCR) Not detected (Not Detect) Parainfluenza 4 (PCR) Not detected (Not Detect) RSV (PCR) Not detected (Not Detect) Entero/Rhino (PCR) Not detected (Not Detect) 08/06/23 Range/Units 19:15 WBC (4.5-11.0) X10^3/uL RBC (4.5-5.9) X10^6/uL Hgb (13.5-17.5) g/dL Hct (41-53) % MCV (80-100) fL MCH (26-34) PG MCHC (30-36) % RDW (11.6-14.8) % Plt Count (150-400) X10^3/uL Neut % (Auto) (50-75) % Lymph % (Auto) (25-40) % [place] % (Auto) (3-14) % Eos % (Auto) (2-4) % Baso % (Auto) (0-2) % Neut # (Auto) (5126-6518) /uL Lymph # (Auto) (8836-1062) /uL [place] # (Auto) (0-900) /uL Eos # (Auto) (0-450) /uL Baso # (Auto) (0-100) /uL PT (9.4-12.5) SECONDS INR (0.9-1.3) Sodium (137-145) mmol/L Potassium (3.4-5.1) mmol/L Chloride (98-107) mmol/L Carbon Dioxide (22-32) mmol/L BUN (9-20) mg/dL Creatinine (0.66-1.25) mg/dL Estimated GFR (>60) mL/min BUN/Creatinine Ratio (6-22) Glucose (80-110) mg/dL Lactate (0.7-2.1) mmol/L Calcium (8.4-10.2) mg/dL Magnesium 1.6 (1.6-2.3) mg/dL Total Bilirubin (0.2-1.3) mg/dL AST (17-59) IU/L ALT (<50) IU/L Alkaline Phosphatase (38-126) U/L Total Creatine Kinase 270 H (55-170) U/L Troponin I 1.550 H* (0.01-0.034) ng/mL NT-Pro-B Natriuret Pep (<450) pg/mL Total Protein (6.3-8.2) g/dL Albumin (3.5-5.0) g/dL Globulin (1.7-4.1) g/dL Albumin/Globulin Ratio (1.0-2.8) Procalcitonin (<0.5) ng/mL Chlamy pneumoniae PCR (Not Detect) Adenovirus (PCR) (Not Detect) B.parapertussis DNA PCR (Not Detecte) Coronavirus OC43 (PCR) (Not Detect) Coronavirus HKU1 (PCR) (Not Detect) Coronavirus 229E (PCR) (Not Detect) SARS-CoV-2 (PCR) (Not Detecte) Coronavirus NL63 (PCR) (Not Detect) Human Metapneumovir PCR (Not Detect) Influenza Type A (PCR) (Not Detect) Influenza Type B (PCR) (Not Detect) M. pneumoniae (PCR) (Not Detect) Parainfluenza 1 (PCR) (Not Detect) Parainfluenza 2 (PCR) (Not Detect) Parainfluenza 3 (PCR) (Not Detect) Parainfluenza 4 (PCR) (Not Detect) RSV (PCR) (Not Detect) Entero/Rhino (PCR) (Not Detect) ECG Data Interpretation: Atrial fibrillation Ventricular rate is 70 Left axis deviation LVH QRS 1-[address] T wave changes AFib rate of 63 QRS of 178 QTC 665 but when repeated earlier it was 693 and then repeated in the 400s. Patient does appear to have new EKG changes no clear ST elevation does appear to have ischemia. MDM Narrative Medical decision making narrative: Patient has no specific complaints however his family states he has been short of breath specifically on exertion and with lying down for the past 4 days. He has been on furosemide in the past but his primary doctor took him off of it proximally 2 weeks ago. He is no chest pain. Is on anticoagulation for AFib. His rate controlled AFib. Troponin is elevated but is unchanged with repeat. BNP significantly elevated. Was given Lasix. His diuresed. Oxygen saturations have been in the upper 80s on room air. He is now requiring oxygen by nasal cannula. He was given antibiotics upon arrival given his presentation, leukocytosis however I have a higher suspicion that this is not an infectious etiology and more fluid overload. Care turned over to Dr. Eller to follow-up with Cardiology with anticipated admission to the hospital. 08/06/23 Rafita: Patient signed out to myself by Dr. Guaman. Patient seen and evaluated independently by myself. Patient's family at bedside during discussion help to give additional history and review DNR/DNI status. Patient has had shortness of breath, orthopnea but had his Lasix recently stopped 2 weeks ago. He has been rate controlled in atrial fibrillation here in the department. Labs and imaging were reviewed as well as patient's treatment to this point. Dr. Guaman had spoken with the hospitalist Dr. Doll but was awaiting call back from cardiology for any additional recommendations. Discussed with patient he is limited intervention they would be open to IV medications would be dependent on findings if they would pursue additional interventions. Spoke with Dr. Greenberg, cardiology. Recommends admit, would hold heparin as INR is 2.2 at this time but could start once normalized, echo and diuresis. Patient did have several beats wide complex tachycardia no more than 3 to 4. Patient after discussion with family is DNR/DNI, EKG was repeated does have what appears to be flipped T-waves and T-wave changes. Repeat troponin is 1.55 slightly down from the 2nd. Spoke with Dr. Toro Telehospitalist who accepts for inpatient admission reviewed findings today rhythm change EKG change, labs, workup and treatments and recommendations from cardiology. Accepts for admission. Discharge Plan Departure Patient Disposition: Admitted As Inpatient Clinical Impression: Hypoxia, CHF (congestive heart failure) Admit Date/Time: 08/06/23 19:48 Admit Provider: Marques Toro
[2023-08-06 14:09] LABS: Lactate (Lactic Acid) 4.7 mmol/L (0.7-2.1)
[2023-08-06 14:16] LABS: NT-proBNP (BNP-Adult 18+) 11100 pg/mL (<450)
[2023-08-06 14:24] LABS: Alanine Aminotransferase 45 IU/L (<50)
--- NOTE | 2023-08-06 14:29 | PC.NURSE ---
Pt sitting up in bed. O2 sat 95% on RA and RR 30. Pt in showing increased work of breathing while at rest and having difficulty completing full sentences. Pt denies any cp, dizziness/lightheadedness. A&Ox4. Skin pink, warm and dry. MARKETING AREA MANAGER intact. Dr Guaman notified.
[2023-08-06] MEDS: cefTRIAXone 1,000 MG in SODIUM CHLORIDE 0.9% 100 ML 200 MG IV (14:37)
[2023-08-06 14:41] LABS: Procalcitonin 0.11 ng/mL (<0.5)
[2023-08-06] MEDS: SODIUM CHLORIDE 0.9% 1,000 ML 500 ML IV (14:41)
[2023-08-06] MEDS: FUROSEMIDE 60 MG in SODIUM CHLORIDE 0.9% 50 ML 112 MG IV (14:56)
[2023-08-06 15:04] LABS: Adenovirus Not Detected (Not Detect); B. parapertussis Not Detected (Not Detecte); Bordetella pertussis Not Detected (Not Detect); Chlamydophila pneumoniae Not Detected (Not Detect); Coronavirus 229E Not Detected (Not Detect); Coronavirus HKU1 Not Detected (Not Detect); Coronavirus NL 63 Not Detected (Not Detect); Coronavirus OC43 Not Detected (Not Detect); Human Metapneumovirus Not Detected (Not Detect); Human Rhinovirus/Enterovirus Not Detected (Not Detect); Influenza A Not Detected (Not Detect); Influenza B Not Detected (Not Detect); Mycoplasma pneumoniae Not Detected (Not Detect); Parainfluenza Virus 1 Not Detected (Not Detect); Parainfluenza Virus 2 Not Detected (Not Detect); Parainfluenza Virus 3 Not Detected (Not Detect); Parainfluenza Virus 4 Not Detected (Not Detect); Respiratory Syncytial Virus Not Detected (Not Detect); SARS- CoV-2 Not Detected (Not Detecte)
[2023-08-06 15:30] LABS: Reflexed Lactate in 2 Hours Y
[2023-08-06 16:03] LABS: Creatine Kinase 283 U/L (55-170)
[2023-08-06 16:04] LABS: Lactate 2HR (Lactic Acid Rflx) 3.2 mmol/L (0.7-2.1)
--- NOTE | 2023-08-06 16:57 | PC.NURSE ---
Assisting with urinal, patient appears to have increase work of breathing, audible wheezing. Patient sats 87-90%. Dr Guaman aware. Verbal order for neb. RT called
--- NOTE | 2023-08-06 17:04 | PC.NURSE ---
Addendum entered by Yessy Houston CNA 08/06/23 17:15: Fine crackles throughout auscultated. Original Note: Pt sitting up in bed and complaining for SOB. Pt unable to speak in complete sentences. Increased work of breathing noted, RR 40 and o2 sat 89% on RA. Dr Guaman notified and at bedside. Pt placed on 2 L NC and received verbal order from Dr Guaman for duoneb treatment. Rt called to bedside. Bilateral inspiratory and expiratory wheezing.
[2023-08-06] MEDS: ALBUTEROL/IPRATROPIUM 3 ML AMPUL INH (17:07)
[2023-08-06 19:29] LABS: Creatine Kinase 270 U/L (55-170)
--- NOTE | 2023-08-06 19:32 | PC.NURSE ---
2 Episodes of short (< 8 beats) of v tack noted. Dr. Eller aware.
[2023-08-06 19:52] LABS: Magnesium 1.6 mg/dL (1.6-2.3)
--- NOTE | 2023-08-06 22:16 | PM.HP.1 ---
History of Present Illness History of Present Illness Date Patient Seen: 08/06/23 Chief complaint: SOB Narrative: 87 years old male with a past medical history of hypertension, dyslipidemia, BPH, atrial fibrillation on Coumadin and other medical issues Hospital emergency room for progressive sacral breath for the past 2 weeks. Patient had a history of likely diastolic dysfunction on Lasix in the past but was eventually weaned off the diuretic due to no further heart failure symptoms. His edema had resolved and patient did not exhibit signs of fluid retention. But since the past 2 weeks prior to the holidays with the family gatherings, there has been increased p.o. intake of sodium and also fluid. Denies any chest pain palpitation dizziness or loss of consciousness. Denies any cough wheezing headache or upper respiratory symptoms. Patient was saturating 91% on room air. The labs, a viral panel was negative. WBC count was normal. Chest x-ray shows possible alveolar prominence with interstitial edema versus mild infiltrate. EKG shows nonspecific ST-T wave changes. BNP was elevated at 11,100 compared to 2500 in January 2022. Presumptive diagnosis of congestive heart failure was made with the possible superimposed pneumonia. Patient received a dose of IV Lasix. Troponin was elevated at 1.56 following which cardiology were consulted and recommendation at this time is medical. Patient was admitted for further evaluation [facility] Medical History BPH NOS w/o ur obs/LUTS History of arthritis Hx of diabetes mellitus Coronary disease Heart murmur Gout BPH (benign prostatic hyperplasia) Chronic atrial fibrillation Hypertension Surgical History Hx of cystoscopy Hx of transurethral resection of prostate Family History Mother Diabetes mellitus Social History marital status: number of children: 3 household members: spouse Smoking Status: Never smoker alcohol intake: never caffeine: No Type(s) of exercise: none Meds Home Medications and Allergies Home Medications Medication Instructions Recorded Confirmed Type amlodipine 10 mg tablet 10 mg PO DAILY 01/26/22 08/06/23 History atorvastatin 80 mg tablet 80 mg PO BEDTIME 01/26/22 08/06/23 History benazepril 40 mg tablet 40 mg PO DAILY 01/26/22 08/06/23 History warfarin 5 mg tablet 5 mg BEDTIME 01/26/22 08/06/23 History tamsulosin 0.4 mg capsule (Flomax) 0.4 mg PO BEDTIME #60 caps 01/28/22 08/06/23 Rx finasteride 5 mg tablet 5 mg PO BEDTIME 08/06/23 08/06/23 History Allergies Allergy/AdvReac Type Severity Reaction Status Date / Time Penicillins Allergy Mild Hives Verified 08/06/23 21:02 Review of Systems Review of Systems Narrative: A 12 point review of system is negative unless otherwise stated in history of present illness Exam Vital Signs (past 8 hours): - 08/06/23 14:30 08/06/23 14:30 08/06/23 14:45 Temperature Pulse Rate 65 70 Respiratory Rate 27 H 29 H Blood Pressure 129/64 Pulse Oximetry 95 92 Oxygen Delivery Method Oxygen Flow Rate 08/06/23 15:00 08/06/23 15:00 08/06/23 15:15 Temperature Pulse Rate 67 66 Respiratory Rate 29 H 27 H Blood Pressure 144/73 H Pulse Oximetry 93 92 Oxygen Delivery Method Oxygen Flow Rate 08/06/23 15:30 08/06/23 15:30 08/06/23 15:45 Temperature Pulse Rate 72 71 Respiratory Rate 26 H 28 H Blood Pressure 158/68 H Pulse Oximetry 93 92 Oxygen Delivery Method Oxygen Flow Rate 08/06/23 16:00 08/06/23 16:00 08/06/23 16:15 Temperature Pulse Rate 65 70 Respiratory Rate 30 H 32 H Blood Pressure 159/72 H Pulse Oximetry 92 92 Oxygen Delivery Method Room Air Oxygen Flow Rate 08/06/23 16:30 08/06/23 16:30 08/06/23 16:45 Temperature Pulse Rate 77 79 Respiratory Rate 40 H Blood Pressure 162/74 H Pulse Oximetry 91 87 L Oxygen Delivery Method Oxygen Flow Rate 08/06/23 17:00 08/06/23 17:00 08/06/23 17:07 Temperature Pulse Rate 97 H 79 Respiratory Rate 54 H 22 Blood Pressure 154/79 H Pulse Oximetry 86 L 96 95 Oxygen Delivery Method Room Air Nasal Cannula Nasal Cannula Oxygen Flow Rate 2 2 08/06/23 17:15 08/06/23 17:30 08/06/23 17:30 Temperature Pulse Rate 79 77 Respiratory Rate 41 H 30 H Blood Pressure 154/70 H Pulse Oximetry 96 93 Oxygen Delivery Method Nasal Cannula Oxygen Flow Rate 2 08/06/23 17:45 08/06/23 18:00 08/06/23 18:01 Temperature Pulse Rate 81 61 Respiratory Rate 36 H Blood Pressure 137/61 Pulse Oximetry 94 94 Oxygen Delivery Method Oxygen Flow Rate 08/06/23 18:01 08/06/23 18:15 08/06/23 19:00 Temperature Pulse Rate 78 59 L 71 Respiratory Rate 41 H 26 H 30 H Blood Pressure Pulse Oximetry 94 93 93 Oxygen Delivery Method Nasal Cannula Oxygen Flow Rate 2 08/06/23 19:00 08/06/23 19:15 08/06/23 19:30 Temperature Pulse Rate 70 65 Respiratory Rate 30 H 34 H Blood Pressure 137/70 Pulse Oximetry 92 93 Oxygen Delivery Method Nasal Cannula Oxygen Flow Rate 2 08/06/23 19:33 08/06/23 19:33 08/06/23 19:45 Temperature Pulse Rate 64 62 Respiratory Rate 45 H 29 H Blood Pressure 134/65 Pulse Oximetry 93 94 Oxygen Delivery Method Oxygen Flow Rate 08/06/23 20:00 08/06/23 20:00 08/06/23 20:15 Temperature Pulse Rate 63 69 Respiratory Rate 36 H 31 H Blood Pressure 134/61 Pulse Oximetry 94 94 Oxygen Delivery Method Oxygen Flow Rate 08/06/23 20:30 08/06/23 20:30 08/06/23 21:59 Temperature 98.3 F Pulse Rate 60 72 Respiratory Rate 37 H 17 Blood Pressure 131/72 141/69 H Pulse Oximetry 95 95 Oxygen Delivery Method Nasal Cannula Oxygen Flow Rate 2 2 Oxygen Delivery Method Nasal Cannula Oxygen Flow Rate 2 Narrative Exam Narrative: Patient is awake and able to follow commands. Hard of hearing. No acute distress Objective Labs 08/06/23 13:43 08/06/23 13:43 Labs: Laboratory Results - last 24 hr 08/06/23 08/06/23 08/06/23 13:43 14:12 15:45 WBC 13.3 H RBC 4.12 L Hgb 12.7 L Hct 37.1 L MCV 89.9 MCH 30.7 MCHC 34.2 RDW 13.7 Plt Count 264 Neut % (Auto) 84.3 H Lymph % (Auto) 5.9 L Jessamine % (Auto) 9.4 Eos % (Auto) 0.1 L Baso % (Auto) 0.3 Neut # (Auto) 05476 H Lymph # (Auto) 800 L Jessamine # (Auto) 1300 H Eos # (Auto) 0 Baso # (Auto) 0 PT 23.5 H INR 2.0 H Sodium 138 Potassium 3.6 Chloride 102 Carbon Dioxide 23 BUN 21 H Creatinine 0.80 Estimated GFR > 60 BUN/Creatinine Ratio 26.3 H Glucose 404 H Lactate 4.7 H* 3.2 H Calcium 9.4 Magnesium Total Bilirubin 1.2 AST 45 ALT 45 Alkaline Phosphatase 123 Total Creatine Kinase 283 H Troponin I 1.530 H* 1.560 H* NT-Pro-B Natriuret Pep 69126 H Total Protein 7.4 Albumin 4.0 Globulin 3.4 Albumin/Globulin Ratio 1.2 Procalcitonin 0.11 Chlamy pneumoniae PCR Not detected Adenovirus (PCR) Not detected B.parapertussis DNA PCR Not detected Coronavirus OC43 (PCR) Not detected Coronavirus HKU1 (PCR) Not detected Coronavirus 229E (PCR) Not detected SARS-CoV-2 (PCR) Not detected Coronavirus NL63 (PCR) Not detected Human Metapneumovir PCR Not detected Influenza Type A (PCR) Not detected Influenza Type B (PCR) Not detected M. pneumoniae (PCR) Not detected Parainfluenza 1 (PCR) Not detected Parainfluenza 2 (PCR) Not detected Parainfluenza 3 (PCR) Not detected Parainfluenza 4 (PCR) Not detected RSV (PCR) Not detected Entero/Rhino (PCR) Not detected 08/06/23 19:15 WBC RBC Hgb Hct MCV MCH MCHC RDW Plt Count Neut % (Auto) Lymph % (Auto) Jessamine % (Auto) Eos % (Auto) Baso % (Auto) Neut # (Auto) Lymph # (Auto) Jessamine # (Auto) Eos # (Auto) Baso # (Auto) PT INR Sodium Potassium Chloride Carbon Dioxide BUN Creatinine Estimated GFR BUN/Creatinine Ratio Glucose Lactate Calcium Magnesium 1.6 Total Bilirubin AST ALT Alkaline Phosphatase Total Creatine Kinase 270 H Troponin I 1.550 H* NT-Pro-B Natriuret Pep Total Protein Albumin Globulin Albumin/Globulin Ratio Procalcitonin Chlamy pneumoniae PCR Adenovirus (PCR) B.parapertussis DNA PCR Coronavirus OC43 (PCR) Coronavirus HKU1 (PCR) Coronavirus 229E (PCR) SARS-CoV-2 (PCR) Coronavirus NL63 (PCR) Human Metapneumovir PCR Influenza Type A (PCR) Influenza Type B (PCR) M. pneumoniae (PCR) Parainfluenza 1 (PCR) Parainfluenza 2 (PCR) Parainfluenza 3 (PCR) Parainfluenza 4 (PCR) RSV (PCR) Entero/Rhino (PCR) Assessment & Plan Assessment & Plan narrative: 87 years old male with a past medical history of hypertension, dyslipidemia, BPH, atrial fibrillation on Coumadin and other medical issues Hospital emergency room for progressive sacral breath for the past 2 weeks. Patient had a history of likely diastolic dysfunction on Lasix in the past but was eventually weaned off the diuretic due to no further heart failure symptoms. His edema had resolved and patient did not exhibit signs of fluid retention. But since the past 2 weeks prior to the holidays with the family gatherings, there has been increased p.o. intake of sodium and also fluid. Denies any chest pain palpitation dizziness or loss of consciousness. Denies any cough wheezing headache or upper respiratory symptoms. Patient was saturating 91% on room air. The labs, a viral panel was negative. WBC count was normal. Chest x-ray shows possible alveolar prominence with interstitial edema versus mild infiltrate. EKG shows nonspecific ST-T wave changes. BNP was elevated at 11,100 compared to 2500 in January 2022. Presumptive diagnosis of congestive heart failure was made with the possible superimposed pneumonia. Patient received a dose of IV Lasix. Troponin was elevated at 1.56 following which cardiology were consulted and recommendation at this time is medical. Patient was admitted for further evaluation 1 dyspnea in a patient with history of cardiomyopathy and suspected congestive heart failure more likely diastolic and acute. Did receive IV Lasix 60 mg in the emergency room which will be continued for now with the daily fluid restriction of 1.5 L/check daily weight and intake output.. Watch for fluid overload closely and oxygen supplementation to maintain O2 saturation above 90% with the nebulizers every 4 hours as needed Follow-up with an echocardiogram 2 elevated toponin. Suspect more of a troponin leak from the underlying heart failure. Denies any chest pain at this time. EKG shows nonspecific changes. Discussed with the family and at this time they want to focus on medical management and not leaning towards coronary angiogram. Discussed with cardiology as well and they have recommended current management in the hospital. INR is at 2.2 and not a candidate for heparin drip at this time. Resume the home statin/lisinopril based on tolerance. Beta-blockers based on the heart rate and monitor closely 3 dyslipidemia resume the home statin 4 atrial fibrillation. Controlled currently on Coumadin and INR is therapeutic 5 GI prophylaxis will be Protonix Goals of care reviewed with the patient/spouse by the video communication device. They have requested DNR status Patient will be admitted under inpatient status. Given the acute congestive heart failure in the setting of elevated troponin with concerns for acute coronary syndrome needing IV medication/cardiology consult, patient meets criteria for inpatient with expected length of stay greater than 2 midnights Patient was seen and examined with the help of the remote video communication device. Time spent is 10 minutes. Location of the telemedicine provider is [facility]
--- NOTE | 2023-08-06 22:21 | DI.ECHO.S_ITS ---
[place] +---------+ [facility] +---------+ : : [address] : : : : [id number] : : : : Phone: [phone]+ Echocardiogram Report + + :Name: BRIDGER MARTINEZ Study Date: 08/07/2023 Height: 68 in : :[facility] ReadingLocation: Weight: 144 lb : : Gender: Male BSA: 1.8 m2 : :: 1935 Age: 87 yrs BP: 142/76 mmHg: :Reason For Study: CONGESTIVE HEART FAILURE : :Ordering Physician: BRENDA, : :ROBINA Performed By: Pia Mejia : :Referring: ROBINA GUTIERREZ : + + Interpretation Summary 1) Normal left ventricular size and thickness with mildly to moderately reduced systolic function (EF 40-45%). 2) Global hypokinesis that is worse in the distal septum, the anterior wall, the apex, and the anterolateral wall. 3) Normal right ventricular size with mildly reduced function. 4) There is moderate mitral regurgitation that is directed posteriorly. 5) The right ventricular systolic pressure is estimated to be at least 48 mmHg based on an estimated right atrial pressure of 8 mm Hg. 6) No prior Echo available for comparison. Recommend cardiology consult. Procedure: A two-dimensional transthoracic echocardiogram with color flow and Doppler was performed. The study quality was technically adequate. There is no prior echocardiogram noted for this patient. A contrast injection of Definity was performed to improve assessment of LV function. The patient was in atrial fibrillation with heart rates between 63-75 bpm during the exam. Left Ventricle: Proximal septal thickening is noted. The left ventricle is normal in size and wall thickness. The ejection fraction is estimated to be 40-45%. Global hypokinesis that is worse in the distal septum, the anterior wall, the apex, and the anterolateral wall. Diastolic function could not be accurately assessed due to atrial fibrillation. Right Ventricle: The right ventricle is normal size. Right ventricular systolic function is mildly reduced. Atria: The left atrium is mildly dilated. The right atrium is borderline dilated. There is no Doppler evidence for an interatrial shunt. Mitral Valve: The mitral papillary muscle appears thickened and/or calcified. There is prolapse of the posterior mitral valve leaflet(s). There is moderate mitral regurgitation. There is an eccentric jet of mitral regurgitation that is directed posteriorly. Aortic Valve: The aortic valve opens well. There is no aortic valve stenosis. No aortic regurgitation is present. Tricuspid Valve: The tricuspid valve is normal in structure and function. There is mild tricuspid regurgitation. The right ventricular systolic pressure is estimated to be at least 48 mmHg based on an estimated right atrial pressure of 8 mm Hg. Pulmonic Valve: The pulmonic valve leaflets are thin and pliable; valve motion is normal. There is a trace or physiologic amount of pulmonic regurgitation. Great Vessels: The aortic root is normal size. The dimensions of the ascending aorta are normal. The IVC is dilated (diameter is greater than 2.1 cm) yet it collapses greater than 50% with a sniff. This suggests a right atrial pressure of 8 mm Hg. Pericardium/ Pleura There is no pericardial effusion. There is no pleural effusion. MMode/2D Measurements & Calculations LVIDd: 5.9 cm LVOT diam: 2.1 cm LVIDs: 3.8 cm Ao root diam: 3.3 cm FS: 36.3 % asc Aorta Diam: 3.6 cm EPSS: 0.94 cm IVSd: 1.00 cm LVPWd: 1.0 cm LV delarosa. diameter/BSA (cm/m^2): 3.3 LV sys. diameter/BSA (cm/m^2): 2.1 LA A2 area: 19.5 cm2 RA long axis: 5.6 cm LA A4 area: 25.3 cm2 RA area: 20.0 cm2 LA length (vol): 6.2 cm RA vol: 60.2 ml LA vol: 68.0 ml RA : 33.9 ml/m2 LA vol index: 38.3 ml/m2 IVC diam: 2.3 cm RVD1 (basal): 3.9 cm TAPSE: 2.3 cm Doppler Measurements & Calculations Ao V2 max: 124.8 cm/sec LVOT Max Terell: 89.8 cm/sec Ao V2 mean: 90.9 cm/sec LV V1 max P.2 mmHg Ao max P.2 mmHg LV V1 VTI: 14.2 cm Ao mean P.6 mmHg BRIANNA(I,D): 2.2 cm2 Ao V2 VTI: 22.8 cm BRIANNA(V,D): 2.5 cm2 sev ratio: 0.62 BRIANNA indexed to BSA (cm^2/m^2): 1.2 MV E max terell: 98.3 cm/sec TR max terell: 316.7 cm/sec MV A max terell: 1.1 cm/sec TR max P.1 mmHg MV E/A: 91.4 PA V2 max: 109.8 cm/sec Med Peak E' Terell: 6.3 cm/sec PA V2 mean: 76.9 cm/sec E/E' med: 15.7 PA mean P.6 mmHg Lat Peak E' Terell: 11.8 cm/sec PA pr(Accel): 48.2 mmHg E/E' lat: 8.3 E/e' average: 12.0 MV dec time: 0.26 sec SV(LVOT): 49.3 ml Reading Physician:01:05 PM
[2023-08-07] VITALS (14 sets, daily range): BP systolic 107–149; BP diastolic 59–92; PULSE 58–92; RESP 16–38; TEMP 36.4–37; O2SAT 91–98
--- NOTE | 2023-08-07 02:25 | PC.NURSE ---
Pt woke up confused, removing telemetry box and oxygen. Reoriented. Placed back on o2 at 4L NC sat 88-91% with expiratory wheezing. Pt states having some shortness of breath. Raised HOB. Notified the doctor for possible breathing treatment, will continue to monitor. at bedside.
--- NOTE | 2023-08-07 03:04 | PC.NURSE ---
Pt started having some upper wheezing, shortness of breath, o2 88-91% on 4l NC. Also complaining of chest pain 2/10 that does not radiate to neck or arm. VS taken. Respirations 30s, afib on tele. Notified doctor for breathing treatment and lasix. RT gave neb and doctor ordered 60 lasix IV x1 dose. at bedside. Will continue to monitor.
[2023-08-07] MEDS: ALBUTEROL/IPRATROPIUM 3 ML AMPUL INH (03:27)
[2023-08-07] MEDS: FUROSEMIDE 60 MG in SODIUM CHLORIDE 0.9% 50 ML 112 MG IV (03:30)
[2023-08-07 04:32] LABS: Add Manual Diff / Slide Review NO; Basophils Absolute Auto 100 /uL (0-100); Basophils Percent Auto 0.4 % (0-2); Eosinophils Absolute Auto 200 /uL (0-450); Eosinophils Percent Auto 1.1 % (2-4); Hematocrit 38.1 % (41-53); Hemoglobin 13.1 g/dL (13.5-17.5); Lymphocytes Absolute Auto 800 /uL (1100-4500); Lymphocytes Percent Auto 5.7 % (25-40); Mean Corpuscular HGB Conc 34.2 % (30-36); Mean Corpuscular Hemoglobin 30.8 PG (26-34); Monocytes Absolute Auto 1200 /uL (0-900); Monocytes Percent Auto 8.4 % (3-14); Neutrophils Absolute Auto 12100 /uL (1500-7000); Neutrophils Percent Auto 84.4 % (50-75); Platelet Count 246 X10^3/uL (150-400); Red Blood Cell Count 4.24 X10^6/uL (4.5-5.9); White Blood Cell Count 14.3 X10^3/uL (4.5-11.0)
[2023-08-07 04:35] LABS: INR 2.3 (0.9-1.3); Prothrombin Time 27.1 SECONDS (9.4-12.5)
[2023-08-07 04:39] LABS: BUN Creatinine Ratio 25.3 (6-22); Blood Urea Nitrogen 20 mg/dL (9-20); Calcium 9.3 mg/dL (8.4-10.2); Carbon Dioxide 26 mmol/L (22-32); Chloride 105 mmol/L (98-107); Creatine Kinase 264 U/L (55-170); Estimated Glomerular Filt Rate > 60 mL/min (>60); Glucose 260 mg/dL (80-110); HEMOLYSIS < 15 (0-50); Potassium 3.2 mmol/L (3.4-5.1); Sodium 141 mmol/L (137-145)
[2023-08-07 04:40] LABS: Magnesium 1.6 mg/dL (1.6-2.3); Phosphorous 3.8 mg/dL (2.3-3.7)
[2023-08-07 04:48] LABS: NT-proBNP (BNP-Adult 18+) 8110 pg/mL (<450)
[2023-08-07 05:14] LABS: TSH w/ Reflex to FT4 0.23 uIU/mL (0.47-4.68)
[2023-08-07 05:43] LABS: Free T4, Direct Thyroxine 2.11 ng/dL (0.78-2.19)
[2023-08-07] MEDS: PANTOPRAZOLE DR 20 MG TABLET PO (06:24)
[2023-08-07 07:32] LABS: Lactate (Lactic Acid) 1.3 mmol/L (0.7-2.1)
[2023-08-07] MEDS: FUROSEMIDE 40 MG/4 ML VIAL IV ×2 (08:26→20:54)
[2023-08-07] MEDS: lisinopriL 20 MG TABLET 40 MG PO (08:26)
[2023-08-07] MEDS: MAGNESIUM CHLORIDE 64 MG TABLET 128 MG PO (08:26)
[2023-08-07] MEDS: POTASSIUM CHLORIDE 20 MEQ TAB 40 MEQ PO ×2 (08:26→13:17)
--- NOTE | 2023-08-07 12:19 | CM.DANOTE ---
Addendum entered by EMANI Maxwell 08/07/23 12:25: ADD: Spouse Jayde reports they have 3 very supportive children, one daughter lives in [place] and is available to assist as needed. Original Note: Initial DCP Assessment Note Pt is an 87 yo male, resident of [place], presents from home with increasing shortness of breath. Per report, patient admitted for medical management of presumed CHF w/suspected superimposed pneumonia. PCP: Maxine Kruger Payer: M[employer] Reviewed chart, met with patient's spouse and daughter (visiting from [place]) while patient was getting his echo. Introduced self and role. Patient lives at home w/spouse Jayde who reports assisting patient with meals, chores and higher ADLs. Patient independent with ambulating,dressing, grooming and prefers spouse stays SBA for showers. Patient has had HH services in the past, spouse cannot recall which HH agency. Discussed the potential for HH services once again and spouse says she will consider. Plan: Anticipate patient's safe discharge home w/family to assist; close outpatient f/u recommended. Patient may be a good candidate for HH RN/PT/PHOTORADIO OPERATOR services. CM team will plan to follow clinical course closely in case any DC needs or concerns arise. EMANI Jimenez Discharge Planning/Care Management CM Discharge Assessment Start: 08/07/23 12:13 Freq: Status: Active Protocol: Document 08/07/23 12:13 LILY (Rec: 08/07/23 12:19 LILY [id number]) Discharge Planning Assessment Assigned Clothing Pattern Preparer EMANI Baer DPOA/Assigned Designee Name Jayde Denson, spouse Contact Information [phone] Advance Directives? Yes Advance Directives on File No History Provided By Family Member,Significant Other,Medical Record Prior Living Arrangements House Household Members spouse Type of transporation used prior to Relies on Others admit Independent with ADL's No Is patient alert and oriented? Yes Needs Assistance With Bathing,Grooming,Meal Prep, Managing Medications,Home Chores / Shopping Patient/Family Preference Home with Home Health Barriers to Discharge No Comment Expected to discharge home w/ supportive spouse and family, spouse considering HH referral Discharge Plan Home Transportation Arrangement Family Additional Comment Follow closely for HH referral Whiteboard Updated in Patient Room with Yes name and ext. # of Clothing Pattern Preparer
--- NOTE | 2023-08-07 17:28 | PM.PN.1 ---
Subjective Subjective Date Patient Seen: 08/07/23 Time Patient Seen: 08:00 Interval history: He appears to have increased work of breathing. However, when taken off oxygen his sats remain above 90%. He appears to have no pain. Exam Vital Signs (past 8 hours): - 08/07/23 09:35 08/07/23 13:00 08/07/23 14:16 Temperature 98.0 F 97.8 F Pulse Rate 76 77 Respiratory Rate 18 16 Blood Pressure 142/76 H 130/68 Pulse Oximetry 95 94 96 Oxygen Delivery Method Room Air Oxygen Flow Rate 0 0 0 08/07/23 17:00 Temperature Pulse Rate Respiratory Rate Blood Pressure Pulse Oximetry 96 Oxygen Delivery Method Room Air Oxygen Flow Rate 0 Fraction of Inspired Oxygen 36 SaO2/FiO2 Ratio 272 Oxygen Delivery Method Room Air Oxygen Flow Rate 0 Narrative Exam Narrative: GEN: no acute distress, sleepy CV: regular rate and rhythm, no murmurs PULM: crackles bilaterally, tachypneic ABD: soft, nontender EXT: warm and well perfused Objective Labs 08/07/23 04:18 08/07/23 04:18 Labs: Laboratory Results - last 24 hr 08/06/23 08/07/23 08/07/23 19:15 04:18 07:15 WBC 14.3 H RBC 4.24 L Hgb 13.1 L Hct 38.1 L MCV 90.0 MCH 30.8 MCHC 34.2 RDW 14.0 Plt Count 246 Neut % (Auto) 84.4 H Lymph % (Auto) 5.7 L Gr[place] % (Auto) 8.4 Eos % (Auto) 1.1 L Baso % (Auto) 0.4 Neut # (Auto) 45395 H Lymph # (Auto) 800 L [place] # (Auto) 1200 H Eos # (Auto) 200 Baso # (Auto) 100 PT 27.1 H INR 2.3 H Sodium 141 Potassium 3.2 L Chloride 105 Carbon Dioxide 26 BUN 20 Creatinine 0.79 Estimated GFR > 60 BUN/Creatinine Ratio 25.3 H Glucose 260 H D Lactate 1.3 Calcium 9.3 Phosphorus 3.8 H Magnesium 1.6 1.6 Total Creatine Kinase 270 H 264 H Troponin I 1.550 H* 1.460 H* NT-Pro-B Natriuret Pep 8110 H TSH 0.23 L Free T4 2.11 08/07/23 12:45 WBC RBC Hgb Hct MCV MCH MCHC RDW Plt Count Neut % (Auto) Lymph % (Auto) [place] % (Auto) Eos % (Auto) Baso % (Auto) Neut # (Auto) Lymph # (Auto) [place] # (Auto) Eos # (Auto) Baso # (Auto) PT INR Sodium Potassium Chloride Carbon Dioxide BUN Creatinine Estimated GFR BUN/Creatinine Ratio Glucose Lactate Calcium Phosphorus Magnesium Total Creatine Kinase Troponin I 1.410 H* NT-Pro-B Natriuret Pep TSH Free T4 PFSH Medical History BPH NOS w/o ur obs/LUTS History of arthritis Hx of diabetes mellitus Coronary disease Heart murmur Gout BPH (benign prostatic hyperplasia) Chronic atrial fibrillation Hypertension Surgical History Hx of cystoscopy Hx of transurethral resection of prostate Family History Mother Diabetes mellitus Social History marital status: number of children: 3 household members: spouse Smoking Status: Never smoker alcohol intake: never caffeine: No Type(s) of exercise: none Assessment & Plan Assessment & Plan narrative: 1. Acute hypoxemic respiratory failure causing acute CHFrEF from NSTEMI -patient already on coumadin, INR>2 -can start heparin drip for 48 hours total anticoagulation if INR <2 -ECHO shows reduced EF, and global and regional wall motion abnormality concerning for CAD causing ACS/NSTEMI -IV lasix for diuresis -when CHF improved will plan to start beta-andrey -continue jasmina-inhibitor -discussed with family risks and benefits of cardiac cath to possibly evaluate and treat CAD, family is currently considering whether cath is within goals of care 2. Atrial fibrillation -hold coumadin -IV heparin if INR<2 3. BPH -tamsulosin, finasteride
[2023-08-07] MEDS: WARFARIN 5 MG TABLET PO (20:54)
[2023-08-07] MEDS: ATORVASTATIN 20 MG TABLET 80 MG PO (20:54)
[2023-08-07] MEDS: FINASTERIDE 5 MG TABLET PO (20:54)
[2023-08-07] MEDS: TAMSULOSIN 0.4 MG CAPSULE PO (20:54)
[2023-08-08] VITALS (14 sets, daily range): BP systolic 117–145; BP diastolic 57–76; PULSE 58–68; RESP 17–22; TEMP 36.2–37.1; O2SAT 91–96
[2023-08-08 04:31] LABS: Hemoglobin 12.3 g/dL (13.5-17.5); Mean Corpuscular HGB Conc 35.2 % (30-36); Mean Corpuscular Hemoglobin 31.1 PG (26-34); Mean Corpuscular Volume 88.3 fL (80-100); Platelet Count 257 X10^3/uL (150-400); Red Blood Cell Count 3.96 X10^6/uL (4.5-5.9); Red Cell Distribution Width 13.8 % (11.6-14.8); White Blood Cell Count 9.7 X10^3/uL (4.5-11.0)
[2023-08-08 04:32] LABS: INR 2.2 (0.9-1.3); Prothrombin Time 25.4 SECONDS (9.4-12.5)
[2023-08-08 04:36] LABS: BUN Creatinine Ratio 27.8 (6-22); Blood Urea Nitrogen 20 mg/dL (9-20); Carbon Dioxide 28 mmol/L (22-32); Chloride 104 mmol/L (98-107); Estimated Glomerular Filt Rate > 60 mL/min (>60); Glucose 260 mg/dL (80-110); HEMOLYSIS < 15 (0-50); Potassium 3.3 mmol/L (3.4-5.1); Sodium 139 mmol/L (137-145)
[2023-08-08] MEDS: PANTOPRAZOLE DR 20 MG TABLET PO (05:52)
[2023-08-08] MEDS: FUROSEMIDE 40 MG/4 ML VIAL IV ×2 (09:22→21:05)
[2023-08-08] MEDS: lisinopriL 20 MG TABLET 40 MG PO (09:22)
[2023-08-08] MEDS: POTASSIUM CHLORIDE IN WATER 10 MEQ/100 ML PIGGYBACK 100 MEQ IV ×3 (09:22→12:32)
[2023-08-08] MEDS: HYDROCODONE/ACET 5/325 TABLET 1 TAB PO (11:17)
[2023-08-08] MEDS: POTASSIUM CHLORIDE 20 MEQ TAB 40 MEQ PO (14:25)
--- NOTE | 2023-08-08 15:44 | PM.PN.1 ---
Subjective Subjective Date Patient Seen: 08/08/23 Time Patient Seen: 08:00 Interval history: He is more energetic today. His work of breathing appears much improved. Exam Vital Signs (past 8 hours): - 08/08/23 09:00 08/08/23 09:22 08/08/23 09:30 Temperature 97.8 F Pulse Rate 67 67 Respiratory Rate 18 Blood Pressure 130/65 130/65 Pulse Oximetry 94 94 Oxygen Delivery Method Room Air Oxygen Flow Rate 0 0 08/08/23 13:00 08/08/23 13:11 Temperature 98.2 F Pulse Rate 70 Respiratory Rate 19 Blood Pressure 128/66 Pulse Oximetry 95 95 Oxygen Delivery Method Room Air Oxygen Flow Rate 0 0 Fraction of Inspired Oxygen 36 SaO2/FiO2 Ratio 272 Oxygen Delivery Method Room Air Oxygen Flow Rate 0 Narrative Exam Narrative: GEN: no acute distress, sleepy CV: regular rate and rhythm, no murmurs PULM: crackles bilaterally ABD: soft, nontender EXT: warm and well perfused Objective Labs 08/08/23 04:10 08/08/23 04:10 Labs: Laboratory Results - last 24 hr 08/08/23 04:10 WBC 9.7 RBC 3.96 L Hgb 12.3 L Hct 35.0 L MCV 88.3 MCH 31.1 MCHC 35.2 RDW 13.8 Plt Count 257 PT 25.4 H INR 2.2 H Sodium 139 Potassium 3.3 L Chloride 104 Carbon Dioxide 28 BUN 20 Creatinine 0.72 Estimated GFR > 60 BUN/Creatinine Ratio 27.8 H Glucose 260 H Calcium 9.0 PFSH Medical History BPH NOS w/o ur obs/LUTS History of arthritis Hx of diabetes mellitus Coronary disease Heart murmur Gout BPH (benign prostatic hyperplasia) Chronic atrial fibrillation Hypertension Surgical History Hx of cystoscopy Hx of transurethral resection of prostate Family History Mother Diabetes mellitus Social History marital status: number of children: 3 household members: spouse Smoking Status: Never smoker alcohol intake: never caffeine: No Type(s) of exercise: none Assessment & Plan Assessment & Plan narrative: 1. Acute hypoxemic respiratory failure causing acute CHFrEF from NSTEMI -patient already on coumadin, INR>2 -can start heparin drip for 48 hours total anticoagulation if INR <2, INR never below 2 -ECHO shows reduced EF, and global and regional wall motion abnormality concerning for CAD causing ACS/NSTEMI -aspirin, statin daily -IV lasix for diuresis -when CHF improved will plan to start beta-andrey if patient can tolerate it -continue jasmina-inhibitor -discussed with family risks and benefits of cardiac cath to possibly evaluate and treat CAD, family is currently considering whether cath is within goals of care, but has decided to see how he does with medical management 2. Atrial fibrillation -hold coumadin -IV heparin if INR<2 3. BPH -tamsulosin, finasteride
[2023-08-08] MEDS: ATORVASTATIN 20 MG TABLET 80 MG PO (21:04)
[2023-08-08] MEDS: WARFARIN 5 MG TABLET PO (21:04)
[2023-08-08] MEDS: TAMSULOSIN 0.4 MG CAPSULE PO (21:04)
[2023-08-08] MEDS: MELATONIN 3 MG TABLET 6 MG PO (21:05)
[2023-08-08] MEDS: FINASTERIDE 5 MG TABLET PO (21:05)
[2023-08-09 03:17] VITALS: BP 129/81; PULSE 60; RESP 19; TEMP 36.4; O2SAT 95
[2023-08-09] MEDS: PANTOPRAZOLE DR 20 MG TABLET PO (06:21)
[2023-08-09 08:00] VITALS: BP 125/71; PULSE 50; RESP 16; TEMP 36.3; O2SAT 96
[2023-08-09 08:46] VITALS: BP 135/67; PULSE 55
[2023-08-09] MEDS: lisinopriL 20 MG TABLET 40 MG PO (08:46)
[2023-08-09] MEDS: FUROSEMIDE 40 MG/4 ML VIAL IV (08:46)
[2023-08-09] MEDS: ASPIRIN EC 81 MG TABLET PO (08:48)
[2023-08-09 09:00] VITALS: O2SAT 97
[2023-08-09 12:00] VITALS: BP 132/54; PULSE 51; RESP 16; TEMP 36.1; O2SAT 93
--- NOTE | 2023-08-09 12:04 | OT.IP.EVAL ---
Current Diagnoses Acute diastolic (congestive) heart failure (08/06/23) Past Medical History (Last Reviewed 08/06/23 @ 18:59 by Mateo Guaman DO) BPH (benign prostatic hyperplasia) BPH NOS w/o ur obs/LUTS Chronic atrial fibrillation Coronary disease Gout Heart murmur History of arthritis Hx of diabetes mellitus Hypertension Surgical History (Last Reviewed 02/17/23 @ 10:47 by Danish King MD) Hx of cystoscopy Hx of transurethral resection of prostate Occupational Therapy Inpatient Evaluation/Re-Eval M1 PT/OT-IP Prior Functional Status Start: 08/09/23 11:54 Freq: NEEDED Status: Active Protocol: Document 08/09/23 14:58 CGR (Rec: 08/09/23 15:21 CGR [id number]) Medical Review Prior Functional Status Medical History Reviewed Yes Communication Pt is able to make his needs known. He appears to evade and deflect questions with humor. Scored 8/30 on SLUMS given . Mobility and Gait Independent without assistive device although family have encouraged him to use a FWW at home and bilateral trekking poles outside. Pt's spouse endorses ~3 falls (slow slump to the ground) in the past one year. Activities of Daily Living and IADL's Independent with basic ADL's. Spouse drives and manages meds , finances. Social History Household Members spouse Living Arrangements House Number of Floors (Floors) Two Floors Number of Stairs To Enter/Railing? Level entrance. 15 steps with left-sided rail up to bed/bath level. There is a bed and bath on the entry rep and pt does stay there more often in the winter. No issues with stair navigation reported. Home Environment High Toilet,Tub/Shower Home Equipment Front Wheel Walker,Straight Cane Employment Status Retired Additional Social History Comment Pt is retired from the construction industry. M2 OT-IP Current Condition Start: 08/09/23 14:58 Freq: Status: Active Protocol: Document 08/09/23 14:58 CGR (Rec: 08/09/23 15:21 CGR [id number]) Occupational Therapy Current Condition Current Condition Evaluation Date 08/09/23 Treatment Diagnosis SOB, CHF with PNA Diagnosis Onset Date 08/06/23 M3 OT- IP Subjective and Pain Start: 08/09/23 14:58 Freq: Status: Active Protocol: Document 08/09/23 14:58 CGR (Rec: 08/09/23 15:21 CGR [id number]) OT- Subjective Occupational Therapy Visit Type Type Initial Evaluation Visit Start Time 11:10 Visit Stop Time 12:04 Total Visit Minutes 54 Notes Pt's spouse and daughter from [place] are present throughout session. OT Pain Assessment Pain When Pain Assessed At Rest Pain Present Pain Present Denied Pain M4 OT- IP ADL's Start: 08/09/23 14:58 Freq: Status: Active Protocol: Document 08/09/23 14:58 CGR (Rec: 08/09/23 15:21 CGR [id number]) OT [id number] Comments OT Self-Feeding Comments not meal time, family states pt is able to feed himself. OT ADL-Grooming Comments OT Grooming Comments not performed OT ADL-Oral Care Comments Oral Care Comments not performed OT ADL-Dressing Comments OT Dressing Comments not performed OT ADL-Toileting General Evaluation Toileting Ability Standby Assistance Comments OT Toileting Comments Pt states need for BM but then unable to void. OT ADL-Bathing Comments OT Bathing Comments not performed M5 OT- IP IADL's Start: 08/09/23 14:58 Freq: Status: Active Protocol: Document 08/09/23 14:58 CGR (Rec: 08/09/23 15:21 CGR [id number]) OT-Instrumental Activities of Daily Living Deficits IADL Deficits Identified Deficits Home Safety Awareness Awareness of Need for Assistance at Home Decreased Awareness Ability to Problem Solve Emergency Unable to Problem Solve Situations Medication Management Medication Management Caregiver Administers Money Management Money Management Caregiver Provides Assistance Meal Preparation Meal Preparation Caregiver Provides Assist Pneumatic Tool Repairer Pneumatic Tool Repairer Caregiver Provides Assist Driving Driving Comments Pt does not drive. M6 OT- IP Functional Cognition Start: 08/09/23 14:58 Freq: Status: Active Protocol: Document 08/09/23 14:58 CGR (Rec: 08/09/23 15:21 CGR [id number]) Cognitive Factors Limiting Selfcare Function Cognitive Ability Level of Alertness Alert,Confusional State Patient Orientation Name Attention Span Ability Capable of Focused Attention, Capable of Sustained Attention Ability to Follow Commands Able to Follow One Step Commands with Increased Time, Able to Follow One Step Commands with Repetition Memory Description Immediate Impaired,Short Term Impaired,Working Impaired Cognitive Tests SLUMS Pt scored an 8/30 on the SLUMS given today 08/09/23. Pt was able to do simple addition, and named 7 animals in one minute, he was able to opal the clock with numbers, place and X in the triange, and identify the largest object. He was able to answer 1 of 4 questions on listening comprehension. Cognitive Comments Cognitive Assessment Comments Pt scored and 8/30 on the SLUMS and uses humor to diflect his cognitive deficit. Pt relies heavily on his for all things. OT- Vision and Hearing OT- Hearing Assessment OT- Hearing Assessment WFL OT- Vision Assessment Vision History Cataracts M7 OT- IP Mobility and Balance Start: 08/09/23 14:58 Freq: Status: Active Protocol: Document 08/09/23 14:58 CGR (Rec: 08/09/23 15:21 CGR [id number]) OT- Bed Mobility Assessment Supine to Sit Supine to Sit Assist Standby Assistance Scooting Scooting to Edge of Bed Standby Assistance OT-Transfer Assessment Sit to and From Stand Sit to and from Stand Standby Assistance Transfers Transfer Ability Standby Assistance Technique Transfer Destination Bed,Chair,Toilet Transfer Technique Stand Step Pivot Devices Transfer Assistive Devices Gait Belt,Front Wheeled Walker Comments Mobility Comments mobility around the room with a 2ww OT- Gait Assessment Gait Gait Assistance Required: Standby Assistance Assistive Devices Assistive Device Gait Belt,Front Wheeled Walker Comments Gait Ability Comments ambulation around the room only. OT- Balance Assessment Sitting Balance and Reactions Static Sitting Balance Ability Good Dynamic Sitting Balance Ability Good M8 OT- IP Objective Assessments Start: 08/09/23 14:58 Freq: Status: Active Protocol: Document 08/09/23 14:58 CGR (Rec: 08/09/23 15:21 CGR [id number]) OT Gross Range of Motion Upper Extremity Range of Motion Assessment Within Functional Limits OT Strength Upper Extremity Strength Assessment Within Functional Limits Comments Strength Comments grossly 4+ to 5/5 OT- Coordination Assessment Upper Extremity Finger to Nose Test Within Functional Limits Finger Tapping Test Within Functional Limits OT-Muscle Tone Assessment Muscle Tone WNL Yes OT Sensation Assessment Edema Edema Absent M9 OT- IP Assessment and Plan Start: 08/09/23 14:58 Freq: Status: Active Protocol: Document 08/09/23 14:58 CGR (Rec: 08/09/23 15:21 CGR [id number]) OT Summary Assessment and Plan Potential Rehabilitation Potential Good Analytic Complexity at Evaluation Moderate Summary OT Impairments Functional Cognition, Functional Mobility,Shower Transfers,Activity Tolerance Progress Towards Goals Slow Progress due to Cognition Assessment Summary Pt presents as a moderate complexity evaluation s/p admit for SOB with CHF and PNA . Pt with severe cognitive deficit assessed with SLUMS on this date with a score of 8/ 30. Pt ambulates with a FWW and SBA but is most impacted by his cognition. Discussed at length the course of dementia with pt's and daughter and the need for a plan for caring for the patient, either 24 hour care or memory care. Encouraged pt's to start looking at facilities. Pt's spouse tearful and comforted by daughter. Pt left sitting up in chair, call button within reach, chair fall alarm armed and staff aware that pt up in chair as pt's and daughter left to take some time in the waiting room. Goals Self-Feeding Goal Independent Grooming Goal Independent Dressing Goal Independent Toileting Goal Independent Bathing Goal Minimal Assistance Toilet Transfer Goal Minimal Assistance Shower Transfer Goal Minimal Assistance Days to Meet Goals 10 Frequency of Treatment Frequency Of Treatment Once a Day Treatment Plan OT Treatment Plan ADL Training,Functional Cognition Training,Functional Mobility,Patient/Family Education,Discharge Planning Other Treatment Recommendations and Next SHower assessment, futher Treatment Focus follow up with family. Discharge Recommendations Home Equipment Needs tub transfer bench, tub bar, grab bars at toilet and at step up to toilet. Transportation Needs at Discharge Private Vehicle
[2023-08-09 13:00] VITALS: O2SAT 93
--- NOTE | 2023-08-09 14:01 | PT.IIE ---
Current Diagnoses Acute diastolic (congestive) heart failure (08/06/23) Surgical History (Last Reviewed 02/17/23 @ 10:47 by Danish King MD) Hx of cystoscopy Hx of transurethral resection of prostate Medical History (Last Reviewed 08/06/23 @ 18:59 by Mateo Guaman DO) BPH (benign prostatic hyperplasia) BPH NOS w/o ur obs/LUTS Chronic atrial fibrillation Coronary disease Gout Heart murmur History of arthritis Hx of diabetes mellitus Hypertension Physical Therapy Inpatient Evaluation/Re-Eval M1 PT/OT-IP Prior Functional Status Start: 08/09/23 11:54 Freq: NEEDED Status: Active Protocol: Document 08/09/23 14:01 AW (Rec: 08/09/23 14:35 AW [id number]) Medical Review Prior Functional Status Medical History Reviewed Yes Communication Pt is able to make his needs known. He appears to evade and deflect questions with humor but may have some underlying cognitive impairment. See OT note for SLUMS assessment. Mobility and Gait Independent without assistive device although family have encouraged him to use a FWW at home and bilateral trekking poles outside. Pt's spouse endorses ~3 falls (slow slump to the ground) in the past one year. Activities of Daily Living and IADL's Independent with basic ADL's. Spouse drives and manages meds , finances. Social History Household Members spouse Living Arrangements House Number of Floors (Floors) Two Floors Number of Stairs To Enter/Railing? Level entrance. 15 steps with left-sided rail up to bed/bath level. There is a bed and bath on the blasting entry specialist and pt does stay there more often in the winter. No issues with stair navigation reported. Home Environment High Toilet,Tub/Shower Home Equipment Front Wheel Walker,Straight Cane Employment Status Retired Additional Social History Comment Pt is retired from the construction industry. M2 PT-IP Current Condition Start: 08/09/23 11:54 Freq: NEEDED Status: Active Protocol: Document 08/09/23 14:01 AW (Rec: 08/09/23 14:35 AW [id number]) Physical Therapy Current Condition Current Condition Evaluation Date 08/09/23 Treatment Diagnosis NSTEMI, impaired mobility and gait Onset Date 08/06/23 M3 PT-IP Subjective Start: 12/04/23 11:54 Freq: NEEDED Status: Active Protocol: Document 08/09/23 14:01 AW (Rec: 08/09/23 14:35 AW [id number]) Subjective Physical Therapy Visit Type Type Initial Evaluation Visit Start Time 13:42 Visit Stop Time 14:01 Total Visit Minutes 19 Notes Pt's spouse is present throughout Physical Therapy Visit Comments Patient Comments Pt is willing to participate with PT Therapy Pain Assessment Pain When Pain Assessed During Mobility Pain Present Pain Present Denied Pain M4 PT-IP Mobility and Gait Start: 08/09/23 11:54 Freq: NEEDED Status: Active Protocol: Document 08/09/23 14:01 AW (Rec: 08/09/23 14:35 AW [id number]) PT-Transfer Assessment Sit to and From Stand Sit to and from Stand Standby Assistance,Use of Upper Extremities Equipment Transfer Assistive Device Gait Belt,Front Wheeled Walker Transfers Transfer Destination Chair Transfer Technique Stand Step Pivot Transfer Ability Level of Assist Standby Assistance,Use of Upper Extremities Comments Mobility Comments Pt was found sitting up in the chair, willing to participate with PT. VS unremarkable with pt on room air. Pt stood with SBA and transferred to EOB. He then stood, ambulated in the halls, and climbed stairs all with SBA using FWW. On return to the room, pt returned to sitting in the bedside chair with call light in reach. Gait Assessment Gait Gait Assistance Required: Standby Assistance Distance (Feet) 300 Assistive Devices Assistive Device Gait Belt,Front Wheeled Walker Orthotic/Prosthetic Devices or Brace: No Gait Deviations General Gait Pattern Decreased Stride Length, Decreased Feet Clearance, Flexed Trunk,Narrow Based Gait Factors Limiting Gait Function Factors Limiting Gait Function Poor Balance,Poor Safety Awareness Comments Gait Comments Pt ambulated with FWW primarily and needed no more than SBA and verbal cues to remain within the walker frame . While he did not need physical assist without AD, he did require closer SBA due to impression of increased falls risk. Stair Climbing Assessment Evaluation Level of Assist On Stairs Standby Assistance,1 Person Assistance Devices Stair Climbing Assistive Devices Left Railing Technique/Endurance Stair Climbing Direction Ascend and Descend Stair Climbing Technique Step Over Step,Step to Step Number of Steps Climbed 3 Query Text: Stair Climbing Set # Repetitions (reps) 2 Comments Stair Climbing Comments Step over step ascending, step -to descending. Pt used hand rail effectively and was safe on stairs with SBA. PT-Balance Assessment Sitting Balance and Reactions Static Sitting Balance Ability Good Dynamic Sitting Balance Ability Good Standing Balance and Reactions Static Standing Balance Ability Fair Dynamic Standing Balance Ability Fair Device Used FWW Functional Assessments Other Functional Tests Performed TUG with and without cognitive task (counting backward from 100 by three's). Pt shows significant dual task deficit. M5 PT-IP Objective Assessments Start: 08/09/23 11:54 Freq: NEEDED Status: Active Protocol: Document 08/09/23 14:01 AW (Rec: 08/09/23 14:35 AW [id number]) Orientation Orientation/Cognition Level of Alertness Alert Orientation Name,Place Safety Awareness Decreased Safety Awareness Memory Description Short Term Impaired Gross Range of Motion Upper Extremity ROM Assessment Within Functional Limits Lower Extremity ROM Assessment Within Functional Limits Strength Upper Extremity Strength Assessment Within Functional Limits Lower Extremity Strength Assessment Within Functional Limits Hip 5/5 Knee 5/5 Ankle 5/5 Sensation Assessment Sensation Gross Sensation WNL M6 PT-IP Treatment Start: 08/09/23 11:54 Freq: NEEDED Status: Active Protocol: Document 08/09/23 14:01 AW (Rec: 08/09/23 14:35 AW [id number]) Physical Therapy Treatment Education Education Provided Safety Other Treatments Other Treatment Performed Discussed results of dual task TUG and implications for safe mobility. M7 PT-IP Assessment and Plan Start: 08/09/23 11:54 Freq: NEEDED Status: Active Protocol: Document 08/09/23 14:01 AW (Rec: 08/09/23 14:35 AW [id number]) PT Summary Assessment and Plan Potential Status of Condition at Evaluation Evolving Summary Impairments Cognition,Transfers,Gait Assessment Summary Zuhair Denson is an 87 yo man seen for PT evaluation while admitted with NSTEMI. PMH includes hypertension, hyperlipidemia, BPH, atrial fibrillation (on coumadin), and HFrEF. PLOF: Pt is independently mobile without assistive device though his family have been encouraging him to use a walker at home and trekking poles outside. They do report at least three falls in the past one year. See OT notes for cognitive assessment/SLUMS. CLOF: Pt presents with excellent and symmetrical UE and LE strength . He has excessive and fixed upper thoracic kyphosis which does limit his ability to extend through the spine. He demonstrates transfers and gait SBA using FWW. He is able to walk short distances without AD but gait deviations significantly increase when he does. Pt poorly tolerates cognitive load during mobility tasks and suffers a significant dual task deficit. PT recommends more regular use of FWW. Pt is safe to discharge home with assist once medically stable. PT further recommends home PT to address dual task deficit in pt's [place] environment. No further acute PT needs. Frequency of Treatment Frequency Of Treatment Discharge Recommendations To Nursing Amount of Assist Needed 1 Person Assist Discharge Recommendations PT Discharge Recommendations Home with Assistance,Home Health Transportation Needs at Discharge Private Vehicle
--- NOTE | 2023-08-09 15:07 | PM.DS.1 ---
History of Present Illness History of Present Illness Date Patient Seen: 08/09/23 Time Patient Seen: 15:07 Chief complaint: SOB Narrative: Per admitting provider, 87 years old male with a past medical history of hypertension, dyslipidemia, BPH, atrial fibrillation on Coumadin and other medical issues Hospital emergency room for progressive sacral breath for the past 2 weeks. Patient had a history of likely diastolic dysfunction on Lasix in the past but was eventually weaned off the diuretic due to no further heart failure symptoms. His edema had resolved and patient did not exhibit signs of fluid retention. But since the past 2 weeks prior to the holidays with the family gatherings, there has been increased p.o. intake of sodium and also fluid. Denies any chest pain palpitation dizziness or loss of consciousness. Denies any cough wheezing headache or upper respiratory symptoms. Patient was saturating 91% on room air. The labs, a viral panel was negative. WBC count was normal. Chest x-ray shows possible alveolar prominence with interstitial edema versus mild infiltrate. EKG shows nonspecific ST-T wave changes. BNP was elevated at 11,100 compared to 2500 in January 2022. Presumptive diagnosis of congestive heart failure was made with the possible superimposed pneumonia. Patient received a dose of IV Lasix. Troponin was elevated at 1.56 following which cardiology were consulted and recommendation at this time is medical. Patient was admitted for further evaluation Discharge Providers Provider Date of admission: 08/06/23 19:48 Discharge Date: 08/09/23 Primary care physician: ASHLEY Matthews Consults: 08/07/23 15:04 Consult to Speech Therapy Evaluate & Treat Comment: Physician Instructions: Evaluate and treat 08/08/23 17:03 Consult to Occupational Therapy Evaluate & Treat Comment: Physician Instructions: Evaluate and treat 08/09/23 10:46 Consult to Physical Therapy Evaluate & Treat Comment: Physician Instructions: Evaluate and Treat 08/09/23 15:06 Consult to Home Health Routine Comment: Reason For Exam: RN/PT/OT/INSPECTOR OUTSIDE STEAM DISTRIBUTION/speech/POTATO INSPECTOR Discharge provider: Yordan Bass DO Summary Hospital Course Discharge Diagnosis: 1. Acute hypoxemic respiratory failure causing acute CHFpEF from NSTEMI 2. Atrial fibrillation 3. BPH Hospital Course: This is an 87 year old male with PMH of atiral fibrillation, BPH on coumadin, CAD who presented with shortness of breath admitted with acute respiratory failure with hypoxia. This was likely due to acute heart failure, and NSTEMI as patient had elevated troponin with borderline EF at 40-45% and global and regional wall motion abnormalities. He was recommended for transfer for further evaluation. However, patient's symptoms improved with diuresis and medical management, and family elected to continue medical management. SLUMS testing was performed and was 05/05.He was discharged on oral furosemide and was not requiring oxygen at the time of discharge. No beta andrey was started due to previous bradycardia. He was started on aspirin in addition to previous coumadin for presumed CAD, he is already on statin therapy. He should follow up as an outpatient with his esol teacher assistant and PCP. Time Spent with Patient Time spent: Greater than 30 minutes Exam Vital Signs (past 8 hours): - 08/09/23 08:00 08/09/23 08:46 08/09/23 09:00 Temperature 97.3 F L Pulse Rate 50 L 55 L Respiratory Rate 16 Blood Pressure 125/71 135/67 Pulse Oximetry 96 97 Oxygen Delivery Method Room Air Oxygen Flow Rate 0 0 08/09/23 12:00 08/09/23 13:00 Temperature 97 F L Pulse Rate 51 L Respiratory Rate 16 Blood Pressure 132/54 L Pulse Oximetry 93 93 Oxygen Delivery Method Room Air Oxygen Flow Rate 0 0 Fraction of Inspired Oxygen 36 SaO2/FiO2 Ratio 272 Oxygen Delivery Method Room Air Oxygen Flow Rate 0 Narrative Exam Narrative: GEN: no acute distress CV: regular rate and rhythm, no murmurs PULM: crackles bilaterally ABD: soft, nontender EXT: warm and well perfused Objective Labs 08/08/23 04:10 08/08/23 04:10 PFSH Medical History BPH NOS w/o ur obs/LUTS History of arthritis Hx of diabetes mellitus Coronary disease Heart murmur Gout BPH (benign prostatic hyperplasia) Chronic atrial fibrillation Hypertension Surgical History Hx of cystoscopy Hx of transurethral resection of prostate Family History Mother Diabetes mellitus Social History marital status: number of children: 3 household members: spouse Smoking Status: Never smoker alcohol intake: never caffeine: No Type(s) of exercise: none Discharge Plan Discharge Plan Patient Disposition: Home Health Service Provider Discharge Comment: You were admitted to the hospital with chest discomfort and trouble breathing. Improved with fluid removal with furosemide. This medication was restarted. Please follow up with cardiology for continued medical management moving forward. Discharge orders & Medications Prescriptions: New aspirin 81 mg Tablet,Delayed Release (Dr/Ec) 81 mg PO DAILY Qty: 90 0RF furosemide 20 mg tablet 20 mg PO BID 30 Days Qty: 60 0RF Continued amlodipine 10 mg tablet 10 mg PO DAILY Rx Instructions: every morning atorvastatin 80 mg tablet 80 mg PO BEDTIME benazepril 40 mg tablet 40 mg PO DAILY Rx Instructions: every morning warfarin 5 mg tablet 5 mg BEDTIME tamsulosin [Flomax] 0.4 mg Capsule 0.4 mg PO BEDTIME Qty: 60 0RF finasteride 5 mg tablet 5 mg PO BEDTIME Follow up/Referrals: Maxine Zamorano ARNP [Primary Care Provider] - Diet/Activity/Treatments Diet: Diet as Tolerated and Regular Activity: As tolerated no restrictions. Visit Report/Discharge Packet Instructions: DI for Heart Failure, High-Potassium Diet, Low-Sodium Diet, Furosemide Stand Alone Forms: Patient Portal/API, Stroke Signs & Symptoms Discharge Data Primary Care Provider: Maxine Zamorano
--- NOTE | 2023-08-09 16:37 | CM.DPC ---
DCP Continued ENTERPRISE ARCHITECT MANAGER reviewed EMR. Per provider, may potentially dc today. Per OT, SLUMS of 05/05, family emotional on what this means for patient's future. Per PT, patient cleared to d/c home with assistance/HH. ENTERPRISE ARCHITECT MANAGER met with patient, spouse, and dtr in room. Patient nodded with what spouse said for dcp but did not appear to follow the conversation at hand. Spouse reports interested in pursuing caregiver information in he home to assist with his increasing dementia. ENTERPRISE ARCHITECT MANAGER provided list of in home caregivers to inquire about services. Spouse in agreement to resume [facility]. Spouse was not interested in discussing memory care facilities at this time. Per provider, patient to d/c today, approved HH order. ENTERPRISE ARCHITECT MANAGER placed HH order, ENTERPRISE ARCHITECT MANAGER completed Face to face. ENTERPRISE ARCHITECT MANAGER spoke with Judi at [facility]. Able to accept patient. VALERIE Carr kindly faxed initial ref information to [facility]. ENTERPRISE ARCHITECT MANAGER faxed order/face to face/d/c summary to Judi at [facility]. Plan: home with family, [facility] for RN/OT/PT/speech/ENTERPRISE ARCHITECT MANAGER, and family hiring additional caregiver support within next few days. CM team will continue to follow as needed. EMANI Garcia
--- NOTE | 2023-08-09 17:24 | ST.IPCSEOM ---
Visit Care Team Role Provider Type Gwendolyn Eller DO Referring Provider Physician Specialty: Emergency Medicine Address: [address] [place] [address], [id number] Email: [email or web address] ASHLEY Matthews Primary Care Provider Non-Staff Specialty: Nursing Address: [address] [place] [address], [id number] Email: Mateo Guaman DO Emergency Provider Physician Specialty: Emergency Medicine Address: [address] [place] [address], [id number] Email: [email or web address] Marques Toro MD Admit Provider Physician Attending Provider Specialty: Internal Medicine Address: [address] [place] [address] Fax: Email: Current Diagnoses Acute diastolic (congestive) heart failure (08/06/23) Past Medical History (Last Reviewed 08/06/23 @ 18:59 by Mateo Guaman DO) BPH (benign prostatic hyperplasia) (Medical) BPH NOS w/o ur obs/LUTS (Medical) Chronic atrial fibrillation (Medical) On warfarin Coronary disease (Medical) Gout (Medical) Heart murmur (Medical) History of arthritis (Medical) Hx of diabetes mellitus (Medical) Hypertension (Medical) Speech-Language Pathology Swallow Evaluation UROLOGIST PHYSICIAN Clinical Swallow Evaluation Start: 08/09/23 13:31 Freq: Status: Active Protocol: Document 08/09/23 13:31 CG (Rec: 08/09/23 14:22 CG [id number]) Clinical Swallow Evaluation Session Time Visit Start Time 12:15 Visit Stop Time 12:45 Total Visit Minutes 30 Visit Information Visit Number [address] Doll Reason for Referral c/o difficulty swallowing solids and pills Setting Assessment Location Acute Care Visit Type Note Type Initial evaluation Next Note Type Next Note Type Treatment Note Patient Information Identification Type Name History Per H&P: 87 years old male with a past medical history of hypertension, dyslipidemia, BPH, atrial fibrillation on Coumadin and other medical issues Hospital emergency room for progressive sacral breath for the past 2 weeks. Patient had a history of likely diastolic dysfunction on Lasix in the past but was eventually weaned off the diuretic due to no further heart failure symptoms. His edema had resolved and patient did not exhibit signs of fluid retention. But since the past 2 weeks prior to the holidays with the family gatherings, there has been increased p.o. intake of sodium and also fluid. Denies any chest pain palpitation dizziness or loss of consciousness. Denies any cough wheezing headache or upper respiratory symptoms. Patient was saturating 91% on room air. The labs, a viral panel was negative. WBC count was normal. Chest x-ray shows possible alveolar prominence with interstitial edema versus mild infiltrate. EKG shows nonspecific ST-T wave changes. BNP was elevated at 11,100 compared to 2500 in January 2022. Presumptive diagnosis of congestive heart failure was made with the possible superimposed pneumonia. Patient received a dose of IV Lasix. Troponin was elevated at 1.56 following which cardiology were consulted and recommendation at this time is medical. Patient was admitted for further evaluation Since admission, the pt has complained of foods getting stuck and has had some difficulty swallowing solid foods and pills, prompting ST order. Before ST evaluation, OT had completed eval in which the pt scored a 8/30 on the SLUMS, indicative of dementia. This prompted a conversation between OT and the family regarding long-term d/c plan and the need for HH and eventually memory care. According to OT, the pt's at first had a difficult time accepting the extent of the pt's dementia and accepting that the family would need to make a usp plan for 24 hour assistance. Pt's reports that she usually brings his food to him and cuts up his food into small pieces, but from there he is able to feed himself. According to nursing, the pt tends to pocket pills in his mouth before swallowing and requires a cue to remember to swallow. Out of an abundance of caution, RN has been crushing meds in applesauce. Additionally, RN stated that he generally has difficulty with solid foods, but hasn't shown any significant difficulty with liquid. RN indicated that the pt is not currently on any pain medications that would alter his mental status. Chart review indicated that the pt was recently started on pantoprazole. Family states that this is due to doctors suspecting GERD due to pt frequently burping. Subjective Observations Pt was seated upright in hospital chair upon ST entry to the room, with his Jayde at bedside in addition to his daughter, who is visiting from [place]. He was awake, alert, and cooperative with evaluation. Did not assess orientation due to pt having just completed the SLUMS (score of 8) and family just having had difficult conversation about dementia. He frequently used humor to cover up when he did not understand a direction. He was very agreeable and generally able to follow one- to-two step directions during the evaluation. Reported by Patient/Caregiver Pain/Discomfort No Other Symptoms Difficulty swallowing pills, Difficulty swallowing solids, Food gets stuck Comment Per RN and family, pt presents with the following: -pockets pills before swallowing/swishes pills around in his mouth for a while before swallowing -occasional difficulty with solid foods, specifically dry foods such as toast -complains of food feeling stuck at the level of the sternal notch -water occasionally goes down wrong tube (a few times a week ) -difficulty controlling rate of intake Current Diet Regular (IDDSI 7) Baseline Feeding Method Needs some assistance The IDDSI Framework Protocol: IDDSI.1 Objective Assessment Mental Status Alert,Responsive,Cooperative Oral Integrity WFL Lip Function Within normal limits Pucker Within normal limits Lip Retraction Within normal limits Alternating Pucker/Lip Retraction Within normal limits Tongue Function Within normal limits Observations of Tongue at Rest Within normal limits Tongue Protrusion Within normal limits Tongue Lateralization Within normal limits Observations of Hard/Soft Palate Within normal limits Comment Overal, oral motor examination was generally unremarkable. Pt has majority of his own teeth remaining, and oral hygeine/integrity is generally well-kept for his age. Food and Liquid Trials Position During Assessment Upright (90 degrees) Liquids Trialed Thin (IDDSI 0) Solid Trials Purred (IDDSI 4),Regular ( IDDSI 7) Administration Type Straw,Self-feeding,Needs some assistance Oral Impairment Mildly impaired Oral Phase Comments Trials puree/IDDSI 4 (mashed potatoes): Good oral acceptance, but mildly impaired rate control with pt putting two spoonfuls in mouth at a time. Bolus transport appeared timely and adequate, and no significant oral residue was noted. Initiation of pharyngeal swallow appeared timely. Trials regular, cut into bite sized pieces (roast beef on toast with gravy): Pt was unable to cut food into bite sized pieces independently. Good oral acceptance and adequate labial closure with no anterior spillage noted. Mastication was mildly prolongued/slowed. Bolus transport/A-P lingual motion appeared mildly weakened resulting in piecemeal swallows. No significant oral residue was noted after the swallow. Initiation of pharyngeal swallow appeared timely. Trials thin liquid (water) via straw sip: Lip closure around straw was adequate, with adequate suction for intake. No anterior spillage noted. Tongue control during bolus hold appeared adequate during single sips, but suspect premature posterior spillage on double sips (as this resulted in wet vocal quality). Suspect slightly delayed initiation of pharyngeal swallow, though unclear without instrumental assessment. Pharyngeal Impairment Within functional limits Pharyngeal Phase Comments Trials puree/IDDSI 4 (mashed potatoes): No overt s/sx aspiration/penetration observed, though silent aspiration cannot be ruled out without an instrumental assessment. Pt did not c/o globus sensation. Rate control was mildly impaired as noted above. Trials regular, cut into bite sized pieces (roast beef on toast with gravy): No overt s/ sx aspiration/penetration observed, though silent aspiration cannot be ruled out without an instrumental assessment. Pt did not c/o globus sensation. Rate control was again mildly impaired as noted above. Trials thin liquid (water) via straw sip: Lip closure around straw was adequate, with adequate suction for intake. No anterior spillage noted. Tongue control during bolus hold appeared adequate during single sips, but suspect premature posterior spillage on double sips (as this resulted in wet vocal quality). Suspect slightly delayed initiation of pharyngeal swallow, though unclear without instrumental assessment. Fatigue/Endurance Endurance WNL The IDDSI Framework Protocol: IDDSI.1 Findings Swallowing Function Other dysphagia Swallowing Function Comments mild oral dysphagia, suspect esoph.dysph. exacerbated by fast rte of intake Severity of Swallow Impairment Mildly impaired Contributing Factors to Swallow Reduced alertness or attention Impairment ,Mastication inefficiency Prognosis Fair Based on Cognitive status,Age Recommendations Instrumental Assessment No Swallowing Treatment Yes Recommended Solids Soft & Bite-sized (IDDSI 6) Recommended Liquids Thin (IDDSI 0) Other Recommendations UROLOGIST PHYSICIAN recommends the followin. UROLOGIST PHYSICIAN treatment with an emphasize on training compensatory strategies/ behavioral modifications to reduce s/sx dysphagia, including dementia strategies and rate control strategies. 2. Ensure the following conditions for meals: TV off/ muted, lights fully on, pt upright/awake/alert, minimal distractions in environment. 3. Diet change to soft and bite sized solids. 4. Small bites of solid, one at a time. Small sips of liquid, one at a time. 5. Encourage pt to put down fork between bites for visual cue of rate control. 6. Remain upright 30 mins after meals. 7. Meds one at a time in applesauce with verbal cue to swallow each. Safety Precautions/Swallowing 1 to 1 distant supervision, Recommendations Feed only when alert,Reduce distractions,Remain upright ( 90 degrees) during all oral intake,Needs verbal cues to use recommended strategies, Upright position at least 30 minutes after meals,Small bites and sips when eating, Slow rate; swallow between bites,Family assistance/ supervision,Check for pocketing Medication Recommendations As Tolerated,Whole in Carrier Discharge Recommendations Home with Home Health Education Patient/Caregiver Education Described results of evaluation,Patient expressed understanding of evaluation, Patient expressed agreement with goals & treatment plans, Family/caregivers expressed understanding of evaluation, Family/caregivers expressed agreement with goals & treatment plans,Family/ caregivers expressed understanding of safety precautions,Family/caregivers expressed understanding of feeding recommendations Goals Short-term Goals 1. Pt and family/caregivers will benefit from education and training in the use of compensatory strategies for swallowing. 2. Pt will demonstrate use of single bite strategy in 80% of opportunities as observed during mealtime. 3. Pt will demonstrate use of single sip strategy in 80% of opportunities as observed during mealtime. 4. Pt will tolerate a diet of soft and bite sized solids and thin liquids without s/sx dysphagia in order to meet nutrition/hydration needs. Long-term Goals 1. Pt and family will understand/utilize compensatory swallow strategies in order to reduce s/sx dysphagia. 2. Pt will tolerate least restrictive diet in order to meet his nutrition/hydration needs.
== END 2023-08-09 16:15 | disposition home health service (06) | DRG 280 ==
LOC: ED 19:04 → AC 19:48
PROVIDERS: Internal Medicine; Admitting Provider Internal Medicine; Emergency Provider Emergency Medicine; PCP Nurse Practitioner Family; Referring Provider Emergency Medicine; Visit Provider Internal Medicine
DX: I11.0 Hypertensive heart disease with heart failure (principal); I21.4 Non-ST elevation (NSTEMI) myocardial infarction; I50.31 Acute diastolic (congestive) heart failure; J96.01 Acute respiratory failure with hypoxia; I48.91 Unspecified atrial fibrillation; E78.5 Hyperlipidemia, unspecified; N40.0 Benign prostatic hyperplasia without lower urinary tract symptoms; Z66 Do not resuscitate; Z79.01 Long term (current) use of anticoagulants
CPT/HCPCS: 36415; 71045; 80048; 80053; 82550; 83605; 83735; 83880; 84100; 84145; 84439; 84443; 84484; 85025; 85027; 85610; 87040; 87633; 92526; 92610; 93005; 94640; 94760; 96365; 96368; 97162; 97166; 97535; 99285; C8929; J0696; J1940; Q9957